=== PATIENT | female | born 1985 | race African-American/Black ===

== ENCOUNTER 2016-10-21 15:39 | Emergency (ER) | payer OTHER, MEDICAID ==
[2016-10-21] MEDS ORDERED: LORAZEPAM INJ 2 MG/1 ML VIAL IV ONE ×2 (16:06→22:15)
[2016-10-21] MEDS ORDERED: LORAZEPAM INJ 2 MG/1 ML VIAL IM ONE (16:07)
[2016-10-21 17:17] LABS: ANION GAP 11 (5-19); BLOOD UREA NITROGEN 12 mg/dL (7-20); CALCIUM 9.2 mg/dL (8.4-10.2); CARBON DIOXIDE 22 mmol/L (22-30); CHLORIDE 108 mmol/L (98-107); CREATININE RESULT 0.59 mg/dL (0.52-1.25); GLUCOSE 88 mg/dL (75-110); POTASSIUM 3.9 mmol/L (3.6-5.0); SODIUM 140.8 mmol/L (137-145)
[2016-10-21] MEDS ORDERED: IBUPROFEN 600 MG TABLET PO ONE (17:31)
[2016-10-21] MEDS ORDERED: KETOROLAC TROMETHAMINE INJ/PF 30 MG/1 ML SDV IV ONE (17:32)
[2016-10-21] MEDS ORDERED: DIPHENHYDRAMINE HCL 50 MG/ML VIAL IV ONE (18:11)
[2016-10-21] MEDS ORDERED: DEXAMETHASONE SOD PHOS INJ 10 MG/1 ML VIAL IV ONE (18:11)
--- NOTE | 2016-10-21 18:15 | RADIOLOGY REPORT (SQ) ---
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 Images reviewed wi th bone, brain and subdural windows. Images stored on PACS. LIMITATIONS: None. FINDINGS: VENTRICLES: Normal size and contour. CEREBRUM: No masses. No hemorrhage. No midline shift. Normal velez/white matter differentiation. N o evidence for acute infarction. CEREBELLUM: No masses. No hemorrhage. No alteration of density. No evidence for acute infarction. EXTRAAXIAL SPACES: No fluid collections. No masses. ORBITS AND GLOBE: No intra- or extraconal masses. Normal contour of globe without masses. CALVARIUM: No fracture. PARANASAL SINUSES: No fluid or mucosal thickening. SOFT TISSUES: No mass or hematoma. OTHER: Stable appearance surgical hardware. IMPRESSION: NO ACUTE INTRACRANIAL PROCESS. NO SIGNIFICANT CHANGE FROM PRIOR STUDY. COMMENT: WAS EXAM PERFORMED WITHIN 24 HOURS UPON ARRIVAL TO FACILITY? Yes. TECHNICAL DOCUMENTATION: JOB ID: [id number]
[2016-10-21] MEDS ORDERED: PROPOFOL INJ 200 MG/20 ML VIAL IV ONE ×2 (18:39→21:07)
[2016-10-21] MEDS ORDERED: HYDROMORPHONE HCL INJ/PF 2 MG/ML AMPULE IV ONE ×2 (18:39→21:06)
--- NOTE | 2016-10-21 18:40 | RADIOLOGY REPORT (SQ) ---
EXAM DESCRIPTION: SHOULDER RIGHT 2 OR MORE VIEWS COMPLETED DATE/TIME: 10/21/2016 6:27 pm REASON FOR STUDY: right shoulder deformity COMPARISON: 04/22/2016 NUMBER OF VIEWS: Two views. TECHNIQUE: AP AND Y-VIEW images acquired of the right shoulder. LIMITATIONS: None. FINDINGS: MINERALIZATION: Normal. BONES: Stable chronic posttraumatic change involving the humeral head and glenoid with internal fixat ion hardware in place. JOINTS: Anterior dislocation humeral head. VISUALIZED LUNGS AND RIBS: No pneumothorax. No rib fracture. SOFT TISSUES: No radiopaque foreign body. OTHER: No other significant finding. IMPRESSION: ANTERIOR SHOULDER DISLOCATION. NO ACUTE FRACTURE OR HARDWARE COMPLICATION IDENTIFIED. TECHNICAL DOCUMENTATION: JOB ID: [id number] [employer]- All Rights Reserved
[2016-10-21] MEDS ORDERED: MIDAZOLAM 2 MG/2 ML INJ ONE (20:13)
[2016-10-21] MEDS ORDERED: PROPOFOL 100 ML IV ONE (20:14)
[2016-10-21] MEDS ORDERED: FENTANYL CITRATE INJ/PF 100 MCG/2 ML AMPUL ONE (20:25)
--- NOTE | 2016-10-21 20:36 | ER Document Report ---
ED General - General Chief Complaint: Probable Seizure Stated Complaint: POSSIBLE SEIZURE Time Seen by Provider: 10/21/16 16:05 Notes: The patient is a 31-year-old female, past medical history IICH (pseudotumor cerebri) with stent placement at [facility] on 02/28/2014 (initially , she thought she had a [employer] shunt), seizures, recurrent right shoulder dislocation, presents with multiple seizures at work today and an increasing diffuse headache. Seizures last ~30 seconds, are described as eye fluttering and right arm movements, and she has a brief post-ictal period. She is also having increasing blurry vision. Patient also having nausea and vomiting. She has not established care with a neurosurgeon in [place] after moving here last year. She takes Diamox and Topamax daily. Her last Topamax dose was last week. While in the emergency room after a 30 second focal seizure, she began to have right shoulder pain and felt like it was dislocated. She denies fevers, neck stiffness, numbness, tingling, chest pain, shortness of breath, abdominal pain or back pain. TRAVEL OUTSIDE OF THE U.S. IN LAST 30 DAYS: No - Related Data Allergies/Adverse Reactions: rocuronium Allergy (Severe, Verified 10/21/16 20:09) Cardiac arrest clonidine [Clonidine] Allergy (Verified 04/19/11 02:13) etomidate [Etomidate] Allergy (Verified 04/19/11 02:13) metoclopramide HCl [From Reglan] Allergy (Verified 03/07/12 05:40) Past Medical History - General Information source: Patient - Social History Smoking Status: Former Smoker Chew tobacco use (# tins/day): No Frequency of alcohol use: None Drug Abuse: None Family History: Reviewed & Not Pertinent Patient has suicidal ideation: No Patient has homicidal ideation: No - Past Medical History Cardiac Medical History: Reports: Hx Hypertension Neurological Medical History: Reports: Hx Seizures Renal/ Medical History: Reports: Hx Kidney Stones. Denies: Hx Peritoneal Dialysis Past Surgical History: Reports: Hx Section, Hx Neurologic Surgery - intercranial shunt, Hx Orthopedic Surgery - Immunizations Hx Diphtheria, Pertussis, Tetanus Vaccination: Yes Review of Systems - Review of Systems Notes: REVIEW OF SYSTEMS: CONSTITUTIONAL: -fevers, -chills EENT: +blurry vision, -eye pain, -difficulty swallowing, -nasal congestion CARDIOVASCULAR: -chest pain, -syncope. RESPIRATORY: -cough, -SOB GASTROINTESTINAL: -abdominal pain, +nausea, +vomiting, -diarrhea GENITOURINARY: -dysuria, -hematuria MUSCULOSKELETAL: +right shoulder pain, -back pain, -neck pain SKIN: -rash or skin lesions. HEMATOLOGIC: -easy bruising or bleeding. LYMPHATIC: -swollen, enlarged glands. NEUROLOGICAL: -altered mental status or loss of consciousness, +headache, - neurologic symptoms, +seizures PSYCHIATRIC: -anxiety, -depression. ALL OTHER SYSTEMS REVIEWED AND NEGATIVE. Physical Exam - Vital signs Vitals: Temp Pulse Resp BP Pulse Ox 98.8 F 79 18 154/124 H 99 10/21/16 15:41 10/21/16 15:41 10/21/16 15:41 10/21/16 15:41 10/21/16 15:41 - Notes Notes: PHYSICAL EXAMINATION: GENERAL: Mild distress. HEAD: Atraumatic, normocephalic. EYES: Pupils equal round and reactive to light, extraocular movements intact, sclera anicteric, conjunctiva are normal. ENT: nares patent, oropharynx clear without exudates. Moist mucous membranes. NECK: Normal range of motion, supple without lymphadenopathy LUNGS: Breath sounds clear to auscultation bilaterally and equal. No wheezes rales or rhonchi. HEART: Regular rate and rhythm without murmurs ABDOMEN: Soft, nontender, normoactive bowel sounds. No guarding, no rebound. No masses appreciated. EXTREMITIES: Right shoulder deformity and decreased ROM. no pitting or edema. No cyanosis. NEUROLOGICAL: Cranial nerves grossly intact. Normal speech. Normal sensory and motor exams. Difficulty swallowing. PSYCH: Normal mood, normal affect. SKIN: Warm, Dry, normal turgor, no rashes or lesions noted. Course - Re-evaluation Re-evalutation: Pt with recurrent seizures and headache. Her seizures last ~30 seconds and then she is briefly post-ictal. Pt with anterior shoulder dislocation during a seizure in the ED. She was difficult to reduce, but eventually was successful after multiple attempts. With increasing headache, blurry vision, papilledema on ultrasound, recurrent seizures and history of IICH, there is a concern for increasing intracranial pressure. Prepared for LP, but patient says that she usually needs fluoroscopy due to her body habitus and refused at this time. Pt is in need of neurosurgery and no neurosurgeon is environmental scientist at this time at [facility]. Spoke to Dr. Westfall (Neurosurgeon at [facility]) and he said that pseudotumor cerebri patients needs a higher level of care. Spoke to Dr. Haider ( Neurosurgeon at [facility]) and he will see patient in ED and recommends a ED to ED transfer. Spoke to Dr. Simental ([facility] ED Attending) and she has accepted patient at 21:45. Given Diamox, Decadron and pain medicine. No recurrent seizures after Ativan. - Vital Signs Vital signs: Temp Pulse Resp BP Pulse Ox 98.8 F 85 21 H 131/95 H 98 10/21/16 15:44 10/21/16 21:13 10/21/16 22:21 10/21/16 22:21 10/21/16 22:21 - Laboratory Result Diagrams: 10/21/16 16:55 Laboratory results interpreted by me: 10/21/16 16:55 Chloride 108 H - Diagnostic Test Radiology reviewed: Image reviewed, Reports reviewed Radiology results interpreted by me: CT Head: NAD - EKG Interpretation by Me EKG shows normal: Sinus rhythm, [place], Intervals, QRS Complexes, ST-T Waves Procedures - Conscious Sedation Conscious sedation Time started: 19:58 Time completed: 20:40 Consent obtained: Yes Indication: Right shoulder dislocation Last meal: 0800 Prior complications: General anesthesia Pt with a mild systemic disease.: P2. - ASA Classification. Airway Evaluation: Normal anatomy Mallampati Classification: Class 1 Used during procedure: Suction available, IV access obtained, Pulse ox on pt., monitoring analyst on pt. Medications administered: Versed, Fentanyl, Diprivan Reversal agents: None I personally performed/intraservice time: Sedation, Procedure, 31-45 min Complications: No - Immobilization Right Shoulder Pre-Proc Neuro Vasc Exam: Normal Immobilizer type: Shoulder immobilizer Performed by: Provider Post-Proc Neuro Vasc Exam: Normal Alignment checked and good: Yes - Joint Reduction/Fracture Care Right Shoulder Consent obtained: Yes Conscious sedation: Yes Pre-procedure NV exam: Yes Fracture: Other - Dislocation Manipulation comment: Multiple attempts using traction-countertraction, abduction, fares techniqu Post-procedure NV exam: Yes Reduction attempts: 4 Complications: No Critical Care Note - Critical Care Note Total time excluding time spent on procedures (mins): 75 Discharge - Discharge Clinical Impression: Seizure, Blurry vision Headache Qualifiers: Headache type: unspecified Headache chronicity pattern: unspecified pattern Intractability: not intractable Qualified Code(s): R51 - Headache Anterior shoulder dislocation Qualifiers: Encounter type: initial encounter Laterality: right Qualified Code(s): S43.014A - Anterior dislocation of right humerus, initial encounter Condition: Stable Disposition: EULESS
--- NOTE | 2016-10-21 20:49 | RADIOLOGY REPORT (SQ) ---
EXAM DESCRIPTION: SHOULDER RIGHT 1 VIEW COMPLETED DATE/TIME: 10/21/2016 8:38 pm REASON FOR STUDY: post reduction COMPARISON: 10/21/2016 TECHNIQUE: AP view of the right shoulder LIMITATIONS: None. FINDINGS: There has been interval reduction of the previously described anterior dislocation. IMPRESSION: Interval reduction as noted above TECHNICAL DOCUMENTATION: JOB ID: [id number] [employer]- All Rights Reserved
[2016-10-21] MEDS ORDERED: ACETAZOLAMIDE 250 MG TABLET PO ONE (21:06)
[2016-10-21] MEDS ORDERED: MIDAZOLAM 2 MG/2 ML INJ IV ONE (21:07)
[2016-10-21] MEDS ORDERED: FENTANYL CITRATE INJ/PF 100 MCG/2 ML AMPUL IV ONE (21:07)
[2016-10-21 23:31] VITALS: BP 138/110
== END 2016-10-21 23:45 | disposition short-term general hospital (02) ==
LOC: ER 15:39
PROC: 0RSJXZZ Reposition Right Shoulder Joint, External Approach (ICD-10-PCS; principal; 2016-10-21)
DX: R56.9 Unspecified convulsions (principal); R51 Headache; H53.8 Other visual disturbances; S43.014A Anterior dislocation of right humerus, initial encounter; X58.XXXA Exposure to other specified factors, initial encounter; R11.2 Nausea with vomiting, unspecified; Z87.891 Personal history of nicotine dependence; Z87.442 Personal history of urinary calculi; Z98.2 Presence of cerebrospinal fluid drainage device
CPT/HCPCS: 96376; 99291; 99292; 96372; 99153; 99152; 96374; 96375; 36415; 82962; 80048; 80201; 73020; 73030; 70450; 23650; L3650; J2250; J1200; J1885; J1170; J2060; J2704; J1100

== ENCOUNTER 2016-11-06 16:41 | Emergency (ER) | payer OTHER, MEDICAID ==
--- NOTE | 2016-11-06 17:17 | ER Document Report ---
ED General - General Mode of Arrival: Ambulatory Information source: Patient TRAVEL OUTSIDE OF THE U.S. IN LAST 30 DAYS: No - HPI Patient complains to provider of: Headache Onset: This afternoon Associated symptoms: Other - see notes above <MORGAN BURGOS - Last Filed: 11/06/16 19:03> <LIU WAKEFIELD - Last Filed: 11/06/16 21:31> - General Chief Complaint: Seizure Stated Complaint: POSSIBLE SEIZURE Time Seen by Provider: 11/06/16 16:49 Notes: 31 year old female with history of a cerebral stent presents to the ED complaining of a headache that radiates to her eyes that started this afternoon. Patient reports that she was transferred to [place] last week secondary to fluid pressure buildup. Patient states that she had two lumbar punctures performed while at [place] and was told to contact her surgeon in [place] to fix the stent and to increase her Topomax and Diamox. Patient reports having a similar feeling today as she did last week, but reports that it is not as severe as last week. Patient states that she doesn't think that she needs to have a lumbar puncture today and is interested in going home. According to EMS, the patient's co-workers state that she had a seizure, but the patient does not recall. (MORGAN BURGOS) - Related Data Allergies/Adverse Reactions: rocuronium Allergy (Severe, Verified 11/06/16 17:11) Cardiac arrest clonidine [Clonidine] Allergy (Verified 11/06/16 17:11) etomidate [Etomidate] Allergy (Verified 11/06/16 17:11) metoclopramide HCl [From Reglan] Allergy (Verified 11/06/16 17:11) Past Medical History - General Information source: Patient - Social History Smoking Status: Unknown if Ever Smoked Family History: Reviewed & Not Pertinent - Past Medical History Cardiac Medical History: Reports: Hx Hypertension Neurological Medical History: Reports: Hx Seizures Renal/ Medical History: Reports: Hx Kidney Stones. Denies: Hx Peritoneal Dialysis Past Surgical History: Reports: Hx Section, Hx Neurologic Surgery - intercranial shunt, Hx Orthopedic Surgery - Immunizations Hx Diphtheria, Pertussis, Tetanus Vaccination: Yes <MORGAN BURGOS - Last Filed: 11/06/16 19:03> Review of Systems - Review of Systems Constitutional: No symptoms reported EENT: No symptoms reported Cardiovascular: No symptoms reported Respiratory: No symptoms reported Gastrointestinal: No symptoms reported Genitourinary: No symptoms reported Female Genitourinary: No symptoms reported Musculoskeletal: No symptoms reported Skin: No symptoms reported Hematologic/Lymphatic: No symptoms reported Neurological/Psychological: See HPI, Seizure - possible, Headaches - radiates to eyes -: Yes All other systems reviewed and negative <MORGAN BURGOS - Last Filed: 11/06/16 19:03> Physical Exam <MORGAN BURGOS - Last Filed: 11/06/16 19:03> - General General appearance: Alert In distress: None <LIU WAKEFIELD - Last Filed: 11/06/16 21:31> - Vital signs Vitals: Temp 98.8 F 11/06/16 16:53 - General Notes: Patient does not want any further physical examination. States that she feels better and would like to go home. (LIU WAKEFIELD) Course <MORGAN BURGOS - Last Filed: 11/06/16 19:03> <LIU WAKEFIELD - Last Filed: 11/06/16 21:31> - Re-evaluation Re-evalutation: 11/06/16 Patient has a history of shunt for history of pseudotumor cerebra. Patient was sent in from work. Patient states that she feels well at this time. She does not want blood work. She does not want to do a lumbar puncture. And she does not want to have any further evaluation at this time. She just wants to go home. She will follow-up with her doctor. Patient is pleasant but does not want to spend any more time in the hospital. (LIU WAKEFIELD) - Vital Signs Vital signs: Temp Pulse Resp BP Pulse Ox 98.8 F 13 133/104 H 99 11/06/16 16:53 11/06/16 17:01 11/06/16 17:01 11/06/16 17:01 Discharge <MORGAN BURGOS - Last Filed: 11/06/16 19:03> <LIU WAKEFIELD - Last Filed: 11/06/16 21:31> - Discharge Clinical Impression: Possible seizure Headache Qualifiers: Headache type: unspecified Headache chronicity pattern: unspecified pattern Intractability: not intractable Qualified Code(s): R51 - Headache Condition: Stable Disposition: HOME, SELF-CARE Instructions: Headache ([facility]) Additional Instructions: Please follow-up with your doctors as instructed regarding her symptoms. Please return if you have any worsening or concerning symptoms. Scribe Attestation: 11/06/16 21:31 I personally performed the services described in the documentation, reviewed and edited the documentation which was dictated to the scribe in my presence, and it accurately records my words and actions. (LIU WAKEFIELD) Scribe Documentation - Scribe Written by Samir:: Samir De Jesus, 11/06/2016 1913 acting as scribe for :: Carrie <MORGAN BURGOS - Last Filed: 11/06/16 19:03>
[2016-11-06 17:31] VITALS: BP 133/104
--- NOTE | 2016-11-06 21:37 | EKG REPORT ---
SEVERITY:- BORDERLINE ECG - SINUS RHYTHM BORDERLINE T WAVE ABNORMALITIES : Confirmed by: Samantha Boateng 06-Nov-2016 21:37:32
== END 2016-11-06 17:39 | disposition home or self-care (01) ==
LOC: ER 16:41
DX: G93.2 Benign intracranial hypertension (principal); R51 Headache; Z96.89 Presence of other specified functional implants; Z79.899 Other long term (current) drug therapy; Z88.8 Allergy status to other drugs, medicaments and biological substances; Z88.4 Allergy status to anesthetic agent
CPT/HCPCS: 93005; 93010; 99284

== ENCOUNTER 2016-11-07 14:08 | Emergency (ER) | payer OTHER, MEDICAID ==
--- NOTE | 2016-11-07 15:26 | ER Document Report ---
ED Medical Screen (RME) - General Mode of Arrival: Ambulatory Information source: Patient TRAVEL OUTSIDE OF THE U.S. IN LAST 30 DAYS: No - HPI Patient complains to provider of: Headache, blurry vision, and seizure Onset: Yesterday Associated Symptoms: Other - see notes above <MORGAN BURGOS - Last Filed: 11/07/16 15:47> <FLORECITA DUONG - Last Filed: 11/07/16 20:49> - General Chief Complaint: Headache Stated Complaint: HEADACHE Notes: 31 year old female with history of a GREEN BELT shunt presents to the ED complaining of a headache, blurry vision, and seizure that started yesterday. Patient reports that she was seen in the ED for similar complaints last week and was sent to [place] where she received two lumbar punctures to relieve fluid pressure. She explains that [place] looked at her shunt, but will not perform surgery to fix it and has advised her to contact the surgeon at [facility] to perform the procedure. Patient states that the shunt has not been checked for 2-3 years because she does not have insurance. Patient reports to having a seizure last night and states that she hasn't had seizures since getting her shunt placed. Patient is additionally complaining of worsening vision stating that she is seeing spots, vomiting, and nausea. Patient was seen in the ED yesterday complaining of a headache and seizure, but did not want to be evaluated. (MORGAN BURGOS) - Related Data Allergies/Adverse Reactions: rocuronium Allergy (Severe, Verified 11/07/16 15:50) Cardiac arrest clonidine [Clonidine] Allergy (Verified 11/07/16 15:50) etomidate [Etomidate] Allergy (Verified 11/07/16 15:50) metoclopramide HCl [From Reglan] Allergy (Verified 11/07/16 15:50) Past Medical History - General Information source: Patient - Past Medical History Cardiac Medical History: Reports: Hx Hypertension Neurological Medical History: Reports: Hx Seizures Renal/ Medical History: Reports: Hx Kidney Stones. Denies: Hx Peritoneal Dialysis Past Surgical History: Reports: Hx Section, Hx Neurologic Surgery - intercranial shunt (GREEN BELT shunt), Hx Orthopedic Surgery - Immunizations Hx Diphtheria, Pertussis, Tetanus Vaccination: Yes <MORGAN BURGOS - Last Filed: 11/07/16 15:47> Review of Systems - Review of Systems Constitutional: No symptoms reported EENT: See HPI, Blurred vision Cardiovascular: No symptoms reported Respiratory: No symptoms reported Gastrointestinal: No symptoms reported Genitourinary: No symptoms reported Female Genitourinary: No symptoms reported Musculoskeletal: No symptoms reported Skin: No symptoms reported Hematologic/Lymphatic: No symptoms reported Neurological/Psychological: See HPI, Seizure, Headaches -: Yes All other systems reviewed and negative <MORGAN BURGOS - Last Filed: 11/07/16 15:47> Physical Exam - General General appearance: Alert - HEENT Head: Normocephalic, Atraumatic, Other - Tenderness to palpation reported over the course of the GREEN BELT shunt particularly over the left side. Eyes: Normal Extraocular movements intact: Yes Pupils: PERRL - Respiratory Respiratory status: No respiratory distress <MORGAN BURGOS - Last Filed: 11/07/16 15:47> Course - Laboratory Result Diagrams: 11/07/16 20:30 11/07/16 20:30 <FLORECITA DUONG - Last Filed: 11/07/16 20:49> - Vital Signs Vital signs: Temp Pulse Resp BP Pulse Ox 98.8 F 88 17 140/92 H 100 11/07/16 14:19 11/07/16 14:19 11/07/16 18:01 11/07/16 17:39 11/07/16 18:01 - Laboratory Laboratory results interpreted by me: 11/07/16 20:30 RDW 14.8 H Doctor's Discharge <MORGAN BURGOS - Last Filed: 11/07/16 15:47> <FLORECITA DUONG - Last Filed: 11/07/16 20:49> - Discharge Clinical Impression: headache, h/o pseudotumor cerebri Condition: Stable Disposition: HOME, SELF-CARE Additional Instructions: We discussed, it is vital that she follow-up with a neurosurgeon. It is recommended that she go back to [facility] days (this weekend if possible). For any reason you are unable to go back to [place], he will need a neurosurgeon and I recommend you go back to [place] in that case. When you do follow-up with a neurosurgeon, bring the copy of today's CT scan, CT scan report and spinal fluid analysis with you when you go to the appointment. The spinal tap you received tonight is temporizing. We were able to bring the pressure from 34-16. Without a functioning stent, the fluid will most likely begin to increase again. So definitive treatment will require a neurosurgeon. Unfortunately, we do not have a neurosurgeon at this hospital. Prescriptions: Hydromorphone HCl [Dilaudid 2 Mg Tablet] 2 mg PO Q6H PRN #20 tablet PRN Reason: for pain Promethazine HCl [Phenergan 25 mg Tablet] 25 mg PO Q6H PRN #15 tablet PRN Reason: Scribe Documentation - Scribe Written by Samir:: Samir De Jesus, 11/07/2016, 1610 acting as scribe for :: Joie <MORGAN BURGOS - Last Filed: 11/07/16 15:47>
--- NOTE | 2016-11-07 16:07 | RADIOLOGY REPORT (SQ) ---
EXAM DESCRIPTION: CT HEAD WITHOUT COMPLETED DATE/TIME: 11/07/2016 3:52 pm REASON FOR STUDY: headache, vision change, blocked shunt COMPARISON: [address] brain exams since 09/25/2007, most recently 10/21/2016 and 04/12/2016 TECHNIQUE: Axial images acquired through the brain without intravenous contrast. Images reviewed wi th bone, brain and subdural windows. Images stored on PACS. All CT scanners at this facility use dose modulation, iterative reconstruction, and/or weight based d osing when appropriate to reduce radiation dose to as low as reasonably achievable (ALARA). [facility]: Dose Right [facility]: CareDose [facility]: Dose Right [facility]: Teradose 4D [facility]: Vator RADIATION DOSE: Up-to-date CT equipment and radiation dose reduction techniques were employed. CTDIv ol: 64.6 mGy. DLP: 1034 mGy-cm. mGy. LIMITATIONS: None. FINDINGS: VENTRICLES: Normal size and contour. CEREBRUM: No masses. No hemorrhage. No midline shift. Normal velez/white matter differentiation. N o evidence for acute infarction. CEREBELLUM: No masses. No hemorrhage. No alteration of density. No evidence for acute infarction. EXTRAAXIAL SPACES: No fluid collections. No masses. ORBITS AND GLOBE: No intra- or extraconal masses. Normal contour of globe without masses. CALVARIUM: No fracture. PARANASAL SINUSES: No fluid or mucosal thickening. SOFT TISSUES: No mass or hematoma. OTHER: On axial images 8 through 12, or radiopaque stent is present along the right distal transverse and sigmoid sinus. This is also seen on prior CT exams 12/14/2014 and 10/21/2016. No intraventricular drainage catheter is identified. Findings discussed with Dr. Montenegro in the emergency room. IMPRESSION: No acute findings TECHNICAL DOCUMENTATION: JOB ID: [id number] Quality ID # [id number]: Final reports with documentation of one or more dose reduction techniques (e.g., Au tomated exposure control, adjustment of the mA and/or kV according to patient size, use of iterative reconstruction technique) 2010 [employer]- All Rights Reserved
--- NOTE | 2016-11-07 17:22 | RADIOLOGY REPORT (SQ) ---
EXAM DESCRIPTION: LUMBAR PUNCTURE COMPLETED DATE/TIME: 11/07/2016 4:43 pm REASON FOR STUDY: large volume tap ([facility]):note opening/closing pressu COMPARISON: CT BRAIN 11/07/2016 FLUOROSCOPY TIME: 13 seconds 1 digital radiographic image saved to PACS. TECHNIQUE: Fluoroscopic guided lumbar puncture. LIMITATIONS: None. PROCEDURE: After written consent and assessment were obtained, the patient was brought into the fluo roscopy room and placed prone on the table. The patient's lower back was prepped in a sterile fashio n and an entry site was selected under live fluoroscopic guidance. The entry site was anesthetized wi th 3 mL of 1% lidocaine. A 20 gauge needle was advanced through the skin and into the thecal sac at t he left paracentral L2-3 level. Opening pressure was 34 cm of water. After approximately 25 ml was drained, closing pressure was 16 cm of water. The needle was removed and a sterile bandage was place d of the site. Specimens were sent to the lab for testing. A fluoroscopic spot image was saved to [facility] confirming level access. FINDINGS: Clear CSF opening pressure 34 cm of water, closing pressure 16 cm of water IMPRESSION: Lumbar puncture under fluoroscopy. No immediate complication. COMMENT: Patient medication list reviewed: Yes- Quality ID# [id number]:Eligible professional attests to doc umenting in the medical record they obtained, updated, or reviewed the patient's current medications. . Quality ID 145: Final reports for procedures using fluoroscopy that document radiation exposure lexie brayden, or exposure time and number of fluorographic images (if radiation exposure indices are not avail able) TECHNICAL DOCUMENTATION: JOB ID: [id number] [employer]- All Rights Reserved
[2016-11-07] MEDS ORDERED: PROMETHAZINE HCL 25 MG TABLET PO ONE (17:25)
[2016-11-07] MEDS ORDERED: HYDROMORPHONE HCL INJ/PF 2 MG/ML AMPULE IM ONE ×2 (17:25→19:00)
[2016-11-07 17:31] LABS: GLUCOSE,CSF 48 mg/dL (40-70)
[2016-11-07 17:52] LABS: APPEARANCE ALL TUBES CLEAR; APPEARANCE TUBE 1 CLEAR; APPEARANCE TUBE 2 CLEAR; APPEARANCE TUBE 3 CLEAR
[2016-11-07 17:53] LABS: RBC AVERAGE 0.5; RBC DILUENT USED NONE USED; RBC DILUTION FACTOR 1; RBC SIDE 1 1; RBC SIDE 2 0; TOTAL RBC SQUARES COUNTED 225
[2016-11-07 17:54] LABS: WHITE BLOOD CELL,CSF 1 /uL (0-5)
[2016-11-07 17:56] LABS: APPEARANCE ALL TUBES CLEAR; APPEARANCE TUBE 1 CLEAR; APPEARANCE TUBE 2 CLEAR; APPEARANCE TUBE 3 CLEAR; RBC SIDE 1 0; RBC SIDE 2 0
[2016-11-07 17:57] LABS: RBC DILUENT USED NONE USED; RBC DILUTION FACTOR 1; TOTAL RBC SQUARES COUNTED 225; WHITE BLOOD CELL,CSF 0 /uL (0-5)
--- NOTE | 2016-11-07 19:01 | ER Document Report ---
ED General - General Chief Complaint: Headache Stated Complaint: HEADACHE Time Seen by Provider: 11/07/16 15:17 Mode of Arrival: Ambulatory Information source: Patient Notes: 31-year-old female with a history of pseudotumor cerebri which has been treated in the past (2013 at [facility]) with a sigmoid sinus stent. Patient started experiencing headaches in the beginning of this month. She was evaluated at this hospital and transferred to [facility] with spinal taps were done to decrease intracranial pressure. She was referred back to [facility] for management of the stent. Patient presents tonight back to this hospital with a headache. Denies any fever or recent illnesses. She denies any visual changes TRAVEL OUTSIDE OF THE [place] IN LAST 30 DAYS: No - HPI Onset: Last week Onset/Duration: Gradual Quality of pain: Dull Severity: Moderate Pain Level: 4 Associated symptoms: Nausea. denies: Chest pain, Fever, Shortness of breath Exacerbated by: Movement Relieved by: Denies Similar symptoms previously: Yes Recently seen / treated by doctor: Yes - Related Data Allergies/Adverse Reactions: rocuronium Allergy (Severe, Verified 11/07/16 15:50) Cardiac arrest clonidine [Clonidine] Allergy (Verified 11/07/16 15:50) etomidate [Etomidate] Allergy (Verified 11/07/16 15:50) metoclopramide HCl [From Reglan] Allergy (Verified 11/07/16 15:50) Past Medical History - General Information source: Patient - Social History Smoking Status: Current Some Day Smoker Cigarette use (# per day): Yes Chew tobacco use (# tins/day): No - Pack per day Frequency of alcohol use: Rare Drug Abuse: None Lives with: Family Family History: Reviewed & Not Pertinent Patient has suicidal ideation: No Patient has homicidal ideation: No - Past Medical History Cardiac Medical History: Reports: Hx Hypertension Neurological Medical History: Reports: Hx Seizures Renal/ Medical History: Reports: Hx Kidney Stones. Denies: Hx Peritoneal Dialysis Past Surgical History: Reports: Hx Section, Hx Neurologic Surgery - intercranial shunt (TROUBLE LOCATER shunt), Hx Orthopedic Surgery - Immunizations Hx Diphtheria, Pertussis, Tetanus Vaccination: Yes Review of Systems - Review of Systems Constitutional: denies: Chills, Fever EENT: No symptoms reported Cardiovascular: No symptoms reported Respiratory: No symptoms reported Genitourinary: No symptoms reported Female Genitourinary: No symptoms reported Musculoskeletal: No symptoms reported Skin: No symptoms reported Hematologic/Lymphatic: No symptoms reported Neurological/Psychological: See HPI Physical Exam - Vital signs Vitals: Temp Pulse Resp BP Pulse Ox 98.8 F 88 15 145/92 H 100 11/07/16 14:19 11/07/16 14:19 11/07/16 14:19 11/07/16 14:19 11/07/16 14:19 Notes: Physical exam: GENERAL: A 31-year-old female, alert and oriented 3 complaining of headache HEAD: Atraumatic, normocephalic. EYES: Pupils equal round and reactive to light, extraocular movements intact, sclera anicteric, conjunctiva are normal. ENT: TMs normal, nares patent, oropharynx clear without exudates. Moist mucous membranes. NECK: Normal range of motion, supple without lymphadenopathy or JVD. LUNGS: Breath sounds clear to auscultation bilaterally and equal. No wheezes rales or rhonchi. HEART: Regular rate and rhythm without murmurs, rubs or gallops. ABDOMEN: Soft, normoactive bowel sounds. No tenderness to palpation. No guarding, no rebound. No masses appreciated. EXTREMITIES: Normal range of motion, no pitting or edema. No clubbing or cyanosis. NEUROLOGICAL: Cranial nerves II through XII grossly intact. Does have neck supple. She does have mild photophobia. no meningismus. normal speech. PSYCH: Normal mood, normal affect. SKIN: Warm, Dry, normal turgor, no rashes or lesions noted. Course - Re-evaluation Re-evalutation: 11/07/16 19:09 patient does appear better. She has been on the smart phone several times and has eaten while in the room. I have discussed the results of the CT as well as the spinaltap. The spinal tap was performed under fluoroscopy by Dr Nieto pressure was lowered from 34 to a closing pressure of 16. Ultimately, the patient will have to follow-up with a neurosurgeon and she is been referred by [facility] back to her neurosurgeon at [facility]. I discussed the limitations of this hospital (we do not have neurology, we do not have neurosurgery) and definitive treatment will require input from a neurosurgeon. I have strongly advised her to return to [facility] to see her neurosurgeon. She has agreed with this plan. I have advised her, if for any reason she is unable to get back to [facility], she will need a neurosurgeon and I recommended she go back to [facility]. As far as right now, CT shows no significant change, and the intracranial pressure has been lowered and the spinal fluid looks clear and without any bleeding or infection. 11/07/16 23:12 Note: It was noted to be hypertensive and she still a bad headache immediately after the tap. We ended up observing her on a heart monitor and her blood pressure came down by itself. She received some more pain medicine. I have had a long conversation with her. She does look so much better. She does states she feels a lot better. I think the fluid removed was a fair amount of fluid and it took a little while for her to start to feel better. I have given her the option of calling [facility] for possible transfer for repeat spinal taps and further removal of the fluid, but she would like to go home. We do not have neurosurgery here so if she is to be admitted, she required transfer. Positive blood pressure, currently is 140/100 and I have discussed the options with her (start her on any antihypertensive medicine will have her follow-up with the medicine clinic for repeat blood pressure in the next few days). We have decided to treat her with some pain medicine and have her follow-up with a repeat blood pressure in 1 of the local clinics. - Vital Signs Vital signs: Temp Pulse Resp BP Pulse Ox 97.8 F 90 22 H 135/103 H 96 11/07/16 23:01 11/07/16 20:13 11/07/16 23:48 11/07/16 23:48 11/07/16 23:48 - Laboratory Result Diagrams: 11/07/16 20:30 11/07/16 21:30 Laboratory results interpreted by me: 11/07/16 11/07/16 11/07/16 20:30 21:30 21:30 RDW 14.8 H ESR 45 H Potassium 3.3 L Chloride 108 H Carbon Dioxide 21 L - Diagnostic Test Radiology reviewed: Image reviewed, Reports reviewed - The head shows no change Critical Care Note - Critical Care Note Total time excluding time spent on procedures (mins): 60 Discharge - Discharge Clinical Impression: headache, h/o pseudotumor cerebri Condition: Stable Disposition: HOME, SELF-CARE Additional Instructions: We discussed, it is vital that she follow-up with a neurosurgeon. It is recommended that she go back to [facility] (this weekend if possible). For any reason you are unable to go back to [place], he will need a neurosurgeon and I recommend you go back to [facility] in that case. When you do follow-up with a neurosurgeon, bring the copy of today's CT scan, CT scan report and spinal fluid analysis with you when you go to the appointment. The spinal tap you received tonight is temporizing. We were able to bring the pressure from 34-16. Without a functioning stent, the fluid will most likely begin to increase again. So definitive treatment will require a neurosurgeon. Unfortunately, we do not have a neurosurgeon at this hospital. Prescriptions: Hydromorphone HCl [Dilaudid 2 Mg Tablet] 2 mg PO Q6H PRN #20 tablet PRN Reason: for pain Promethazine HCl [Phenergan 25 mg Tablet] 25 mg PO Q6H PRN #15 tablet PRN Reason: Forms: Return to Work Referrals: SUPA COYNE MD [ACTIVE STAFF] - Follow up as needed (This is the number for a good Local primary care doctor affiliated with the hospital and could manage your blood pressure.)
[2016-11-07] MEDS ORDERED: NORMAL SALINE 500 ML IV PRN (20:25)
[2016-11-07 20:45] LABS: ABSOLUTE BASOPHILS # (AUTO) 0.1 10^3/uL (0.0-0.2); ABSOLUTE EOSINOPHILS # (AUTO) 0.1 10^3/uL (0.0-0.6); ABSOLUTE LYMPHOCYTES (AUTO) 2.9 10^3/uL (0.5-4.7); ABSOLUTE MONOCYTES (AUTO) 0.4 10^3/uL (0.1-1.4); ABSOLUTE NEUT (AUTO) 3.8 10^3/uL (1.7-8.2); EOSINOPHILS % (AUTO) 1.8 % (0-6); HEMATOCRIT 39.1 % (36.0-47.0); HEMOGLOBIN 12.6 g/dL (12.0-15.5); HGB HCT DIFFERENCE -1.3; LYMPHOCYTES % (AUTO) 39.7 % (13-45); MEAN CORPUSCULAR HEMOGLOBIN 28.7 pg (27.0-33.4); MEAN CORPUSCULAR HGB CONC 32.2 g/dL (32.0-36.0); MEAN CORPUSCULAR VOLUME 89 fl (80-97); MONOCYTES % (AUTO) 5.4 % (3-13); RED CELL DISTRIBUTION WIDTH 14.8 % (11.5-14.0); SEGMENTED NEUTROPHILS % (AUTO) 52.1 % (42-78); WHITE BLOOD COUNT 7.3 10^3/uL (4.0-10.5)
--- NOTE | 2016-11-07 20:46 | EKG REPORT ---
SEVERITY:- BORDERLINE ECG - SINUS RHYTHM BORDERLINE T WAVE ABNORMALITIES : Confirmed by: Samantha Boateng 07-Nov-2016 20:46:17
[2016-11-07] MEDS ORDERED: HYDROMORPHONE HCL INJ/PF 2 MG/ML AMPULE IV ONE ×2 (20:57→23:10)
[2016-11-07 22:05] LABS: ALANINE AMINOTRANSFERASE 26 U/L (9-52); ALBUMIN 3.9 g/dL (3.5-5.0); ALKALINE PHOSPHATASE 81 U/L (38-126); ANION GAP 12 (5-19); ASPARTATE AMINO TRANSFERASE 16 U/L (14-36); BILIRUBIN,DIRECT 0.3 mg/dL (0.0-0.4); BILIRUBIN,TOTAL 0.4 mg/dL (0.2-1.3); BLOOD UREA NITROGEN 12 mg/dL (7-20); C-REACTIVE PROTEIN 7.8 mg/L (<10.0); CALCIUM 8.9 mg/dL (8.4-10.2); CARBON DIOXIDE 21 mmol/L (22-30); CHLORIDE 108 mmol/L (98-107); CREATINE KINASE 129 U/L (30-135); GLUCOSE 83 mg/dL (75-110); POTASSIUM 3.3 mmol/L (3.6-5.0); SODIUM 141.4 mmol/L (137-145); TOTAL PROTEIN 7.2 g/dL (6.3-8.2)
[2016-11-07 22:14] LABS: CREATINE KINASE MB 0.24 ng/mL (<4.55)
[2016-11-07 22:19] LABS: TROPONIN I < 0.012 ng/mL
[2016-11-07 23:51] VITALS: BP 135/103
== END 2016-11-07 23:56 | disposition home or self-care (01) ==
LOC: ER 14:08
DX: G93.2 Benign intracranial hypertension (principal); Z98.2 Presence of cerebrospinal fluid drainage device; R51 Headache; R11.0 Nausea; H53.149 Visual discomfort, unspecified; F17.210 Nicotine dependence, cigarettes, uncomplicated; Z88.8 Allergy status to other drugs, medicaments and biological substances; Z88.7 Allergy status to serum and vaccine
CPT/HCPCS: 93005; 96376; 99285; 96372; 96374; 36415; 87070; 87205; 82553; 82550; 85025; 85652; 89050; 82945; 84157; 86140; 80053; 84484; 62270; 70450; 93010; J1170

== ENCOUNTER 2016-11-23 01:34 | Day surgery (SDC) | payer OTHER, MEDICAID ==
[2016-11-23] MEDS ORDERED: NORMAL SALINE 1000 ML 1,000 ML IV ONE (02:00)
[2016-11-23] MEDS ORDERED: PROPOFOL INJ 200 MG/20 ML VIAL IV ONE ×2 (02:24→14:00)
--- NOTE | 2016-11-23 02:25 | RADIOLOGY REPORT (SQ) ---
EXAM DESCRIPTION: SHOULDER RIGHT 2 OR MORE VIEWS COMPLETED DATE/TIME: 11/23/2016 1:53 am REASON FOR STUDY: injury COMPARISON: Right shoulder x-ray 10/21/2016, 04/12/2016. NUMBER OF VIEWS: Three views. TECHNIQUE: Internal rotation, external rotation, and Y view images acquired of the right shoulder. LIMITATIONS: None. FINDINGS: MINERALIZATION: Normal. BONES: No acute fracture is identified. Orthopedic hardware at the glenoid. JOINTS: There is anterior glenohumeral dislocation. VISUALIZED LUNGS AND RIBS: No pneumothorax. No displaced rib fracture. SOFT TISSUES: No radiopaque foreign body. IMPRESSION: Anterior glenohumeral dislocation. TECHNICAL DOCUMENTATION: JOB ID: [id number] 2010 [employer]- All Rights Reserved
[2016-11-23] MEDS ORDERED: PROPOFOL 0 ML IV ONE (02:28)
[2016-11-23] MEDS ORDERED: PROPOFOL 100 ML IV ONE (03:06)
[2016-11-23] MEDS ORDERED: DIAZEPAM INJ 10 MG/2 ML DISP.SYRIN ONE (03:12)
[2016-11-23] MEDS ORDERED: DIAZEPAM INJ 10 MG/2 ML DISP.SYRIN IV ONE (03:14)
[2016-11-23] MEDS ORDERED: FENTANYL CITRATE INJ/PF 100 MCG/2 ML AMPUL ONE ×2 (03:15→14:00)
[2016-11-23] MEDS ORDERED: FENTANYL CITRATE INJ/PF 100 MCG/2 ML AMPUL IV ONE (03:30)
--- NOTE | 2016-11-23 03:32 | ER Document Report ---
ED General - General Chief Complaint: Shoulder Injury Stated Complaint: SHOULDER PAIN Time Seen by Provider: 11/23/16 01:57 Notes: Patient is a 31-year-old female presents with complaint of right shoulder pain. She fell while running upstairs. She felt her right shoulder. She has a history of recurrent shoulder dislocations. She had surgery on her shoulder 3 years ago. She dislocated again in October of this year and then today is the second time she is dislocated since the surgery. Tingling sensation into her hand. No weakness into the hand. TRAVEL OUTSIDE OF THE [place] IN LAST 30 DAYS: No - Related Data Allergies/Adverse Reactions: rocuronium Allergy (Severe, Verified 11/07/16 15:50) Cardiac arrest clonidine [Clonidine] Allergy (Verified 11/07/16 15:50) etomidate [Etomidate] Allergy (Verified 11/07/16 15:50) metoclopramide HCl [From Reglan] Allergy (Verified 11/07/16 15:50) Past Medical History - Social History Smoking Status: Never Smoker Frequency of alcohol use: None Drug Abuse: None Family History: Reviewed & Not Pertinent Patient has suicidal ideation: No Patient has homicidal ideation: No - Past Medical History Cardiac Medical History: Reports: Hx Hypertension Neurological Medical History: Reports: Hx Seizures Renal/ Medical History: Reports: Hx Kidney Stones. Denies: Hx Peritoneal Dialysis Past Surgical History: Reports: Hx Section, Hx Neurologic Surgery - intercranial shunt, Hx Orthopedic Surgery - right shoulder - Immunizations Hx Diphtheria, Pertussis, Tetanus Vaccination: Yes Review of Systems - Review of Systems Notes: My Normal Review Basic REVIEW OF SYSTEMS: CONSTITUTIONAL : Denies fever, chills, or sweats. Denies recent illness. CARDIOVASCULAR: Denies chest pain. RESPIRATORY: Denies cough, cold, or chest congestion. Denies shortness of breath, difficulty breathing, or wheezing. GASTROINTESTINAL: Denies abdominal pain. Denies nausea, vomiting, or diarrhea. MUSCULOSKELETAL: right Shoulder pain. SKIN: Denies rash or skin lesions. NEUROLOGICAL: Denies altered mental status or loss of consciousness. Denies headache. Denies weakness or paralysis or loss of use of either side. Denies problems with gait or speech. Some tingling sensation in the right hand. ALL OTHER SYSTEMS REVIEWED AND NEGATIVE. Physical Exam - Vital signs Vitals: Temp Pulse Resp BP Pulse Ox 97.4 F 101 H 18 146/118 H 96 11/23/16 01:38 11/23/16 01:38 11/23/16 01:38 11/23/16 01:38 11/23/16 01:38 - Notes Notes: General Appearance: Well nourished, alert, cooperative, no acute distress, moderate obvious discomfort. Vitals: reviewed, See vital signs table. Eyes: PERRL, EOMI, Conjuctiva clear Mouth: No decreasd moisture Throat: No tonsillar inflammation, No airway obstruction, No lymphadenopathy Neck: Supple, no neck tenderness, Lungs: No wheezing, No rales, No rhonci, No accessory muscle use, good air exchange bilaterally. Heart: Normal rate, Regular rythm, No murmur, no rub Extremities: strength 5/5 in all extremities, good pulses in all extremities, the right shoulder consistent with dislocation. Patient is good radial and ulnar pulses. Good cap refill. She can feel me touch all fingers of her hand but says it is "tingly". She has good flexion-extension of all fingers and her hand., no edema. Skin: warm, dry, appropriate color, no rash Neuro: speech clear, oriented x 3, normal affect, responds appropriately to questions. Course - Re-evaluation Re-evalutation: 11/23/16 03:30 I have patient twice. Both times a for multiple attempts at reducing the shoulder joint. Since the patient sedated she does have good range of motion however appears that the joint is still dislocated. I did confirm this with a post reduction x-ray and the patient's joint remains dislocated. I spoke with orthopedist, Dr. Workman, who agrees to admit the patient and will consider taking her to the operating room for further reduction. 11/23/16 05:37 Patient is a hard peripheral IV stick. I therefore placed a peripheral IV in the left antecubital area under ultrasound guidance. This was working very well and worked for the patient's sedation. Later on IV became kinked and was not usable. I therefore placed a second peripheral IV under IV guidance. This is able to be flushed well without difficulty. Patient is admitted. - Vital Signs Vital signs: Temp Pulse Resp BP Pulse Ox 98 F 79 21 H 150/106 H 98 11/23/16 03:22 11/23/16 03:05 11/23/16 05:00 11/23/16 03:39 11/23/16 05:00 Procedures - Conscious Sedation Conscious sedation Consent obtained: Yes Prior complications: Procedural sedation Pt with a mild systemic disease.: P2. - ASA Classification. Airway Evaluation: Normal anatomy, Obese Mallampati Classification: Class 2 Used during procedure: Suction available, IV access obtained, Pulse ox on pt., chief innovation officer on pt. Medications administered: Diprivan I personally performed/intraservice time: 31-45 min Complications: No Notes: Patient was given a total of 130 mg of diprivan onintial sedation. Patient awoke with continued pain and felt as if her shoulder was still dislocated. Patient resedated with 100mg of Diprivan. Patient did not have any hypotension or Hypoxemia. - Joint Reduction/Fracture Care Right Shoulder Consent obtained: Yes Conscious sedation: Yes Pre-procedure NV exam: Yes Fracture: Other - dislocation Post-procedure NV exam: Yes Post-reduction x-ray: Joint not reduced Reduction attempts: 3 Complications: No - Additional Procedures IV insertion Additional Procedures: IV insertion Notes: 11/23/16 05:40 Peripheral IV inserted in left antecubital region under ultrasound guidance. Dark blood return with easy flushing with saline. Discharge - Discharge Clinical Impression: Shoulder dislocation Qualifiers: Encounter type: initial encounter Laterality: right Qualified Code(s): S43.004A - Unspecified dislocation of right shoulder joint, initial encounter Disposition: ADMITTED OBSERVATION Admitting Provider: Dr. Workman Unit Admitted: Surgical Floor
--- NOTE | 2016-11-23 03:53 | RADIOLOGY REPORT (SQ) ---
EXAM DESCRIPTION: SHOULDER RIGHT 2 OR MORE VIEWS COMPLETED DATE/TIME: 11/23/2016 3:26 am REASON FOR STUDY: post reduction COMPARISON: Right shoulder x-ray earlier same date. NUMBER OF VIEWS: Two views. TECHNIQUE: Frontal and Y view images acquired of the right shoulder. LIMITATIONS: None. FINDINGS: No significant interval change status post closed reduction. There is persistent anterior dislocation at the glenohumeral joint. IMPRESSION: No significant interval change in the anterior glenohumeral dislocation. TECHNICAL DOCUMENTATION: JOB ID: [id number] OH-64 2010 [employer]- All Rights Reserved
[2016-11-23] MEDS ORDERED: HYDROMORPHONE HCL INJ/PF 2 MG/ML AMPULE IV ONE (05:44)
[2016-11-23 06:09] LABS: ABSOLUTE EOSINOPHILS # (AUTO) 0.1 10^3/uL (0.0-0.6); ABSOLUTE MONOCYTES (AUTO) 0.4 10^3/uL (0.1-1.4); ABSOLUTE NEUT (AUTO) 3.3 10^3/uL (1.7-8.2); BASOPHILS % (AUTO) 0.7 % (0-2); EOSINOPHILS % (AUTO) 2.1 % (0-6); HEMATOCRIT 36.5 % (36.0-47.0); HEMOGLOBIN 11.8 g/dL (12.0-15.5); HGB HCT DIFFERENCE -1.1; LYMPHOCYTES % (AUTO) 43.5 % (13-45); MEAN CORPUSCULAR HEMOGLOBIN 28.7 pg (27.0-33.4); MEAN CORPUSCULAR HGB CONC 32.2 g/dL (32.0-36.0); MEAN CORPUSCULAR VOLUME 89 fl (80-97); MONOCYTES % (AUTO) 5.8 % (3-13); SEGMENTED NEUTROPHILS % (AUTO) 47.9 % (42-78); WHITE BLOOD COUNT 6.9 10^3/uL (4.0-10.5)
[2016-11-23 06:11] LABS: ANION GAP 11 (5-19); BLOOD UREA NITROGEN 13 mg/dL (7-20); CALCIUM 8.9 mg/dL (8.4-10.2); CARBON DIOXIDE 21 mmol/L (22-30); CHLORIDE 110 mmol/L (98-107); CREATININE RESULT 0.59 mg/dL (0.52-1.25); GLUCOSE 88 mg/dL (75-110); POTASSIUM 3.6 mmol/L (3.6-5.0); SODIUM 141.5 mmol/L (137-145)
[2016-11-23 06:20] LABS: PROTHROMBIN TIME 12.7 SEC (11.4-15.4)
[2016-11-23 06:21] LABS: PARTIAL THROMBOPLASTIN TIME 28.4 SEC (23.5-35.8)
[2016-11-23] MEDS ORDERED: ONDANSETRON HCL INJ/PF 4 MG/2 ML SDV ONE (08:07)
[2016-11-23] MEDS ORDERED: DEXAMETHASONE SOD PHOSPHATE INJ 4 MG/1 ML VIAL ONE (08:07)
[2016-11-23] MEDS ORDERED: LIDOCAINE 2% INJ-PF (20 MG/ML) 10 ML AMPUL ONE (08:07)
[2016-11-23] MEDS: MORPHINE SULFATE 10 MG/ML INJ IV PRN ×5 (08:56→21:51)
--- NOTE | 2016-11-23 09:57 | EKG REPORT ---
SEVERITY:- BORDERLINE ECG - SINUS RHYTHM BORDERLINE T ABNORMALITIES, INFERIOR LEADS : Confirmed by: Mehdi Catalan MD 23-Nov-2016 09:57:03
--- NOTE | 2016-11-23 13:05 | PDOC H&P ---
History of Present Illness Admission Date/PCP: 11/23/16 03:36 History of Present Illness: JAYDA RAMEY is a 31 year old female who presented to the emergency room with a right shoulder dislocation. Attempts at conscious sedation and reduction of the shoulder were unsuccessful. The patient is admitted to orthopedic service for management of the right shoulder dislocation. The patient's past medical history is notable for multiple right shoulder dislocations. She underwent a right shoulder Bankart repair by an unknown doctor in [facility] at an unknown point in the past. Her radiographic jacket suggest that she has had multiple right shoulder dislocations in the past year all of which have been reduced in the emergency room. Past Medical History Cardiac Medical History: Reports: Hypertension Neurological Medical History: Reports: Seizures Past Surgical History Past Surgical History: Reports: Section, Orthopedic Surgery - Patient is status post a right Bankart repair in [facility] Social History Smoking Status: Current Every Day Smoker Cigarettes Packs Per Day: 0.5 Last Time Smoked: 11/23/2016 Frequency of Alcohol Use: Rare Hx Recreational Drug Use: No Drugs: None Hx Prescription Drug Abuse: No - Advance Directive Resuscitation Status: Full Code Family History Family History: Reviewed & Not Pertinent Parental Family History Reviewed: No Children Family History Reviewed: No Sibling(s) Family History Reviewed.: No Medication/Allergy Home Medications: Hydromorphone HCl [Dilaudid 2 Mg Tablet] 2 mg PO Q6H PRN #20 tablet 11/07/16 Promethazine HCl [Phenergan 25 mg Tablet] 25 mg PO Q6H PRN #15 tablet 11/07/16 Albuterol Sulfate [Proair HFA Inhalation Aerosol 8.5 gm MDI] 2 puff IH Q4HP PRN 11/23/16 Amitriptyline HCl 25 mg PO Q12 11/23/16 Diazepam [Valium 5 mg Tablet] 5 mg PO Q6HP PRN 11/23/16 Ibuprofen [Advil] 200 mg PO Q6HP PRN 11/23/16 Topiramate [Topamax 25 mg Tablet] 25 mg PO Q12 11/23/16 Allergies/Adverse Reactions: rocuronium Allergy (Severe, Verified 11/07/16 15:50) Cardiac arrest clonidine [Clonidine] Allergy (Verified 11/07/16 15:50) etomidate [Etomidate] Allergy (Verified 11/07/16 15:50) lisinopril Allergy (Verified 11/23/16 07:00) Facial swelling metoclopramide HCl [From Reglan] Allergy (Verified 11/07/16 15:50) Review of Systems All systems: as per PMH Physical Exam Vital Signs: Temp Pulse Resp BP Pulse Ox 36.4 C 79 16 131/99 H 99 11/23/16 12:09 11/23/16 12:09 11/23/16 12:09 11/23/16 12:09 11/23/16 12:09 Intake & Output 11/22/16 11/23/16 11/24/16 06:59 06:59 06:59 Weight 112.5 kg General appearance: PRESENT: mild distress, obese Head exam: PRESENT: normocephalic Eye exam: PRESENT: EOMI Respiratory exam: PRESENT: unlabored Cardiovascular exam: PRESENT: RRR Pulses: PRESENT: normal radial pulses Vascular exam: PRESENT: normal capillary refill GI/Abdominal exam: PRESENT: soft Rectal exam: PRESENT: deferred Extremities exam: PRESENT: other - Upper extremity is immobilized in a shoulder immobilizer. There is no skin abnormalities. Distal neurovascular examination is intact. Psychiatric exam: PRESENT: appropriate affect, normal mood. ABSENT: homicidal ideation, suicidal ideation Skin exam: PRESENT: dry, intact, warm. ABSENT: cyanosis, rash Results Laboratory Results: 11/23/16 05:41 11/23/16 05:41 11/23/16 11/23/16 05:41 05:41 WBC 6.9 RBC 4.10 Hgb 11.8 L Hct 36.5 MCV 89 MCH 28.7 MCHC 32.2 RDW 15.0 H Plt Count 239 Seg Neutrophils % 47.9 Lymphocytes % 43.5 Monocytes % 5.8 Eosinophils % 2.1 Basophils % 0.7 Absolute Neutrophils 3.3 Absolute Lymphocytes 3.0 Absolute Monocytes 0.4 Absolute Eosinophils 0.1 Absolute Basophils 0.0 Sodium 141.5 Potassium 3.6 Chloride 110 H Carbon Dioxide 21 L Anion Gap 11 BUN 13 Creatinine 0.59 Est GFR ( Amer) > 60 Est GFR (Non-Af Amer) > 60 Glucose 88 Calcium 8.9 Impressions: Shoulder X-Ray 11/23/16 02:55 IMPRESSION: No significant interval change in the anterior glenohumeral dislocation. Status: Imported from PACS Assessment & Plan - Diagnosis (1) Dislocation, shoulder, anterior Is this a current diagnosis for this admission?: YesPlan: Plan for closed reduction of her right shoulder dislocation. Any consideration of further stabilization can be considered as an outpatient. - Time Time Spent: 50 to 70 Minutes Anticipated discharge: Home Within: within 24 hours
[2016-11-23] MEDS: RINGERS SOLUTION,LACTATED 1,000 ML IV PRN ×2 (13:19→18:39)
[2016-11-23] MEDS ORDERED: MIDAZOLAM 2 MG/2 ML INJ ONE (14:00)
[2016-11-23] MEDS ORDERED: EPHEDRINE SULFATE INJ 50 MG/1 ML AMPULE ONE (14:00)
[2016-11-23] MEDS ORDERED: ACETAMINOPHEN 100 ML IV ONE (14:01)
[2016-11-23] MEDS ORDERED: DIPHENHYDRAMINE HCL 50 MG/ML VIAL IV PRN (15:39)
[2016-11-23] MEDS ORDERED: MEPERIDINE HCL/PF INJ 25 MG/1 ML DISP.SYRIN IV PRN (15:39)
[2016-11-23] MEDS ORDERED: MORPHINE SULFATE 10 MG/ML INJ IV PRN (15:39)
[2016-11-23] MEDS ORDERED: FENTANYL CITRATE INJ/PF 100 MCG/2 ML AMPUL IV PRN ×2 (15:39)
[2016-11-23] MEDS ORDERED: PROMETHAZINE HCL INJ 25 MG/1 ML VIAL IV PRN ×2 (15:39)
[2016-11-23] MEDS ORDERED: OXYCODONE-ACETAMINOPHEN 5-325 MG TABLET PO PRN ×2 (15:39)
--- NOTE | 2016-11-23 16:03 | Operative Report ---
Operative Report DATE OF SURGERY: 11/23/16 PREOPERATIVE DIAGNOSIS: Right shoulder dislocation OPERATION: Closed reduction under fluoroscopic guidance and conscious sedation SURGEON: DURAN BAKER ANESTHESIA: Moderate Sedation ESTIMATED BLOOD LOSS: 0 PROCEDURE: Patient supine on the operative table following introduction of conscious sedation, the right shoulder is manipulated under fluoroscopic guidance to affect an anatomic reduction. It is examined in 2 planes as well as with fluoroscopy real-time to convince myself that this was a stable reduction. Immobilizer is applied. The patient was subsequently awakened and sent PACU.
[2016-11-23] MEDS ORDERED: LORAZEPAM INJ 2 MG/1 ML VIAL IV ONE (16:15)
[2016-11-23] MEDS ORDERED: LORAZEPAM INJ 2 MG/1 ML VIAL ONE (16:17)
--- NOTE | 2016-11-23 16:46 | RADIOLOGY REPORT (SQ) ---
EXAM DESCRIPTION: SHOULDER RIGHT 2 OR MORE VIEWS; NO CHG FLUORO COMPLETED DATE/TIME: 11/23/2016 4:30 pm REASON FOR STUDY: CLOSED REDUCTION RT SHOULDER DISLOCATION IN OR2 COMPARISON: 11/23/2016 preoperative images. FLUOROSCOPY TIME: 0.1 minutes 2 images saved to PACS. TECHNIQUE: Intra-operative images acquired during surgical procedure to evaluate progress. NUMBER OF IMAGES: 2 LIMITATIONS: None. FINDINGS: 2 images are obtained. Probable reduction of the dislocation. Please correlate with oper ative note. IMPRESSION: IMAGE(S) OBTAINED DURING PROCEDURE. COMMENT: Quality ID [id number]: Final reports for procedures using fluoroscopy that document radiation exp osure indices, or exposure time and number of fluorographic images (if radiation exposure indices are not available) Please consult full operative report of the attending physician for description of the procedure. TECHNICAL DOCUMENTATION: JOB ID: [id number] [employer]- All Rights Reserved
[2016-11-23] MEDS ORDERED: DIAZEPAM INJ 10 MG/2 ML DISP.SYRIN IV PRN (16:59)
[2016-11-23] MEDS ORDERED: ONDANSETRON HCL INJ/PF 4 MG/2 ML SDV IV PRN (16:59)
[2016-11-23] MEDS: OXYCODONE HCL IR 5 MG TABLET PO PRN (20:42)
--- NOTE | 2016-11-23 21:45 | RADIOLOGY REPORT (SQ) ---
EXAM DESCRIPTION: SHOULDER RIGHT 1 VIEW COMPLETED DATE/TIME: 11/23/2016 6:36 pm REASON FOR STUDY: JUST REDUCED COMPARISON: Operative and preoperative radiographs. FINDINGS: Note: Single-view postoperative image of the shoulder obtained portably. The shoulder st ill looks slightly anteriorly located with respect to the glenoid. Some of this may be positional. To confirm location, scapular Y or axillary views might be obtained. TECHNICAL DOCUMENTATION: JOB ID: [id number]
[2016-11-24] MEDS: MORPHINE SULFATE 10 MG/ML INJ IV PRN ×6 (01:03→18:21)
[2016-11-24] MEDS: RINGERS SOLUTION,LACTATED 1,000 ML IV PRN ×2 (01:07→17:34)
--- NOTE | 2016-11-24 14:42 | RADIOLOGY REPORT (SQ) ---
EXAM DESCRIPTION: CT RT UPPER EXTREMITY WITHOUT COMPLETED DATE/TIME: 11/24/2016 1:50 pm REASON FOR STUDY: RT SHOULDER PAIN COMPARISON: Shoulder plain films 11/23/2016, 10/21/2016, 04/12/2016 CT arthrogram right shoulder 07/04/2009 CT right shoulder 05/28/2015 TECHNIQUE: Axial [facility] with reformatted oblique coronal and ob lique sagittal imaging windowed for bone and soft tissues. All CT scanners at this facility use dose modulation, iterative reconstruction, and/or weight based d osing when appropriate to reduce radiation dose to as low as reasonably achievable (ALARA). [facility]: Dose Right [facility]: CareDose [facility]: Dose Right [facility]: Teradose 4D [facility]: Smart Technologies RADIATION DOSE: Up-to-date CT equipment and radiation dose reduction techniques were employed. CTDIv ol: 32.1 mGy. DLP: 727 mGy-cm. mGy. LIMITATIONS: Non arthrogram CT FINDINGS: SOFT TISSUES: No axillary adenopathy. There is a downward sloping acromion with mild narr owing of the subacromial space on coronal reconstruction image 50 and sagittal reconstruction image 1 8. BONY ARCHITECTURE: No fracture. Old screw tracts in the right humeral head without hardware. There are 2 screws in the anterior 3rd of the bony glenoid on axial image 37. Manning-Sachs deformity pos terior right humeral head. GLENOHUMERAL JOINT: Very mild ventral subluxation of the humeral head with respect to the bony glenoi d on axial image 31. There is glenohumeral joint space narrowing with a [id number] appearance. ACROMION AND AC JOINT: Downward sloping acromion with narrowing of subacromial space and mild bony sp urring at the AC joint, best shown on coronal images 16-19. ROTATOR CUFF: Grossly normal thickness on these non arthrogram images GLENOID, LABRUM AND BICEPS: Not well seen OTHER: No other significant finding. IMPRESSION: Very mild ventral subluxation of the humeral head with respect to the bony glenoid Manning-Sachs deformity right humeral head Narrowing of the subacromial space due to a downward sloping acromion Old surgery with metallic screws in the anterior mid 3rd of the glenoid TECHNICAL DOCUMENTATION: JOB ID: [id number] Quality ID # [id number]: Final reports with documentation of one or more dose reduction techniques (e.g., Au tomated exposure control, adjustment of the mA and/or kV according to patient size, use of iterative reconstruction technique) 2010 [employer]- All Rights Reserved
[2016-11-24] MEDS ORDERED: DIAZEPAM 5 MG TABLET PO PRN (17:30)
[2016-11-24] MEDS: OXYCODONE HCL IR 5 MG TABLET PO PRN (22:18)
[2016-11-25] MEDS: MORPHINE SULFATE 10 MG/ML INJ IV PRN ×4 (00:45→11:48)
--- NOTE | 2016-11-25 07:12 | PDOC DISCHARGE SUMMARY ---
General - Admit/Disc Date/PCP Admission Date/Primary Care Provider: 11/23/16 03:36 Discharge Date: 11/25/16 - Discharge Diagnosis (1) Dislocation, shoulder, anterior Is this a current diagnosis for this admission?: Yes - Additional Information Resuscitation Status: Full Code Discharge Diet: As Tolerated, Regular Discharge Activity: Balance Activity w/Rest Home Medications: Hydromorphone HCl [Dilaudid 2 mg Tablet] 2 mg PO Q6H PRN #20 tablet 11/07/16 Promethazine HCl [Phenergan 25 mg Tablet] 25 mg PO Q6H PRN #15 tablet 11/07/16 Albuterol Sulfate [Proair HFA Inhalation Aerosol 8.5 gm MDI] 2 puff IH Q4HP PRN 11/23/16 Amitriptyline HCl 25 mg PO Q12 11/23/16 Diazepam [Valium 5 mg Tablet] 5 mg PO Q6HP PRN 11/23/16 Ibuprofen [Advil] 200 mg PO Q6HP PRN 11/23/16 Topiramate [Topamax 25 mg Tablet] 25 mg PO Q12 11/23/16 Oxycodone HCl [Oxy-Ir 5 mg Tablet] 5 mg PO Q6HP PRN #0 tablet 11/25/16 History of Present Illness History of Present Illness: With recurrent right shoulder instability Hospital Course Hospital Course: 31-year-old black female with a long-standing history of recurrent right shoulder instability and at least 2 open surgical procedures in [place] that have not rendered stability. Presented to the emergency room with a right shoulder dislocation. Attempted reduction was performed under conscious sedation which was unsuccessful. The patient was admitted to the orthopedic service for shoulder reduction and evaluation. Physical Exam Vital Signs: Temp Pulse Resp BP Pulse Ox 36.6 C 84 20 151/119 H 94 11/25/16 04:03 11/25/16 04:03 11/25/16 04:03 11/25/16 04:03 11/25/16 04:03 Intake & Output 11/24/16 11/25/16 11/26/16 06:59 06:59 06:59 Intake Total 1200 1400 Balance 1200 1400 Weight 111.9 kg General appearance: PRESENT: obese Head exam: PRESENT: normocephalic Eye exam: PRESENT: EOMI Respiratory exam: PRESENT: unlabored Cardiovascular exam: PRESENT: RRR Pulses: PRESENT: normal radial pulses GI/Abdominal exam: PRESENT: soft Rectal exam: PRESENT: deferred Extremities exam: PRESENT: other - Shoulder tender and passive range of motion is painful. Distal neurovascular examination is intact. Neurological exam: PRESENT: alert, awake, oriented to person, oriented to place , oriented to time, oriented to situation, CN II-XII grossly intact. ABSENT: motor sensory deficit Psychiatric exam: PRESENT: appropriate affect, normal mood. ABSENT: homicidal ideation, suicidal ideation Skin exam: PRESENT: dry, intact, warm. ABSENT: cyanosis, rash Results Laboratory Results: 11/23/16 05:41 11/23/16 05:41 Impressions: Fluoroscopy 11/23/16 15:15 IMPRESSION: IMAGE(S) OBTAINED DURING PROCEDURE. Shoulder X-Ray 11/23/16 15:15 IMPRESSION: IMAGE(S) OBTAINED DURING PROCEDURE. Upper Extremity CT 11/24/16 00:00 IMPRESSION: Very mild ventral subluxation of the humeral head with respect to the bony glenoid [place]-Sachs deformity right humeral head Narrowing of the subacromial space due to a downward sloping acromion Old surgery with metallic screws in the anterior mid 3rd of the glenoid Status: Imported from PACS Plan Discharge Plan: 31-year-old black female with recurrent right shoulder instability status post at least 2 previous surgical procedures in [place]. Patient is now reduced as evidenced by recent CT scan. There are multiple intra-articular issues. Dr. Schmidt has been consulted and will discuss surgical options with the patient.
[2016-11-25] MEDS: OXYCODONE HCL IR 5 MG TABLET PO PRN (09:00)
[2016-11-25 14:51] VITALS: BP 142/93
== END 2016-11-25 15:55 | disposition home or self-care (01) ==
LOC: ER 01:34 → UNDOADMIN 03:36 → OROUT 03:36 → EH 03:36 → 4N 06:05 → UNDODISIN 11-25 15:55 → OROUT 11-25 15:55
PROVIDERS: ATTEND Orthopaedic Surgery
PROC: 0RSJXZZ Reposition Right Shoulder Joint, External Approach (ICD-10-PCS; principal; 2016-11-23 14:00)
DX: M24.411 Recurrent dislocation, right shoulder (principal); I10 Essential (primary) hypertension; G40.909 Epilepsy, unspecified, not intractable, without status epilepticus; F17.210 Nicotine dependence, cigarettes, uncomplicated; E66.9 Obesity, unspecified; Z68.39 Body mass index [BMI] 39.0-39.9, adult
CPT/HCPCS: 93005; 99285; 99153; 99152; 96374; 36415; 84703; 85025; 85610; 85730; 80048; 73020; 73030; 73200; 93010; 23655; L3650; J2250; J1100; J3360 ×2; J3010; J2270 ×3; J2060; J2405; J7120 ×2; J2704; J3490; J0131; 01620

== ENCOUNTER 2016-12-15 10:19 | Emergency (ER) | payer OTHER, MEDICAID ==
[2016-12-15] MEDS ORDERED: MORPHINE SULFATE 10 MG/ML INJ IV ONE (10:37)
--- NOTE | 2016-12-15 10:41 | ER Document Report ---
ED Headache - General Stated Complaint: HEADACHE/POSSIBLE SEIZURE Time Seen by Provider: 12/15/16 10:32 Information source: Patient Notes: Pt is a 31 yo F with PMH of pseudotumor cerebri with previous NETWORK DIRECTOR shunt at [facility] in 2004 that was unsuccessful in relieving her symptoms and so the patient in 2013 was treated at [facility] and under neurosurgeon Dr. Rodriguez had a procedure with placement of a sigmoid sinus stent. Patient has been to multiple hospitals with complications from this stent placement with intermittent seizures. She was seen here recently in October with a similar presentation requiring lumbar puncture. She has been transferred to [facility] in the past multiple times in supposedly has been told to follow-up with the above surgeon. Patient has never performed follow-up. Patient presents today with a witnessed seizure, tonic-clonic in nature, with a postictal period. Patient also complains of right shoulder pain. Patient has dislocated her right shoulder with surgery in the past. Patient complains only of right shoulder pain and a mild frontal headache. She states the frontal headache started yesterday. Slow onset, no blurry vision, nausea and vomiting 1. She denies any weakness or numbness to her arms other than the obvious shoulder pain and arm limitation. States she has not taken home Diamox, Topamax, blood pressure medications and greater than 1 week since she has been out of her medications. Patient previously was followed by [place] [facility], but does not have a current neurologist here in [place]. TRAVEL OUTSIDE OF THE [place] IN LAST 30 DAYS: Yes - HPI Patient complains to provider of: Headache, Other - seizure Patient reports: Other - See above Onset: Other Onset was: Abrupt Timing: Better Quality of pain: Other - See above Severity: None Associated symptoms: Other - See above Similar symptoms previously: Yes Recently seen / treated by doctor: No - Related Data Allergies/Adverse Reactions: rocuronium Allergy (Severe, Verified 12/15/16 11:00) Cardiac arrest clonidine [Clonidine] Allergy (Verified 12/15/16 11:00) etomidate [Etomidate] Allergy (Verified 12/15/16 11:00) lisinopril Allergy (Verified 12/15/16 11:00) Facial swelling metoclopramide HCl [From Reglan] Allergy (Verified 12/15/16 11:00) Past Medical History - General Information source: Patient - Social History Smoking Status: Unknown if Ever Smoked Cigarette use (# per day): No Chew tobacco use (# tins/day): No Smoking Education Provided: No Frequency of alcohol use: None Family History: Reviewed & Not Pertinent - Past Medical History Cardiac Medical History: Reports: Hx Hypertension Neurological Medical History: Reports: Hx Seizures Renal/ Medical History: Reports: Hx Kidney Stones. Denies: Hx Peritoneal Dialysis Past Surgical History: Reports: Hx Section, Hx Neurologic Surgery - intercranial shunt, Hx Orthopedic Surgery - Patient is status post a right [place] repair in [facility] - Immunizations Hx Diphtheria, Pertussis, Tetanus Vaccination: Yes Review of Systems - Review of Systems Constitutional: denies: Fever EENT: denies: Eye discharge, Nose discharge Cardiovascular: denies: Chest pain, Palpitations Respiratory: denies: Short of breath Gastrointestinal: denies: Vomiting Genitourinary: denies: Dysuria Musculoskeletal: Leg swelling Skin: Other - no hives. denies: Rash Neurological/Psychological: Other - no slurred speech -: Yes All other systems reviewed and negative Physical Exam - Vital signs Vitals: Resp Pulse Ox 14 100 12/15/16 13:03 12/15/16 13:03 Notes: Reviewed vital signs and nursing note as charted by RN. CONSTITUTIONAL: Alert and oriented and responds appropriately to questions. Well -appearing; well-nourished HEAD: Normocephalic; atraumatic EYES: PERRL; full extraocular range of motion ENT: Normal nose; no rhinorrhea; moist mucous membranes; pharynx without lesions noted NECK: Supple without meningismus; non-tender; no cervical lymphadenopathy, no masses CARD: Regular rate and rhythm; no murmurs, no clicks, no rubs, no gallops; symmetric distal pulses RESP: Normal chest excursion without splinting or tachypnea; breath sounds clear and equal bilaterally ABD/GI: Normal bowel sounds; non-distended; soft, non-tender, no rebound, no guarding; no palpable organomegaly or masses BACK: The back appears normal and is non-tender to palpation, there is no CVA tenderness EXT: Anterior right shoulder surgical scars. The patient shoulder does appear and feel malpositioned. Neurovascularly intact distally SKIN: Normal color for age and race; warm; dry; good turgor; capillary refill < 2 seconds; no acute lesions noted NEURO: CN 2 through 12. Excluding the right arm the patient has 5 out of 5 bilateral upper and lower extremity strength or sensation intact to light touch PSYCH: The patient's mood and manner are appropriate. Grooming and personal hygiene are appropriate. Course - Re-evaluation Re-evalutation: 12/15/16 10:44 Given the above history and physical examination with previous treatments as recorded, I will provide the patient a dose of her Topamax, obtain a CT scan of the head, obtain basic labs, coagulation profile, and consider lumbar puncture. I have called and left a message for the patient's neurosurgeon in [facility]. 12/15/16 11:12 Going over the patient's previous orthopedic report and results appears that the patient in November had an attempted shoulder dislocation reduction under conscious sedation in the emergency department which was unsuccessful. Patient then went to the operating room and had another repeat conscious sedation with successful reduction. Patient has a CT scan of the shoulder and was told to follow-up with a specialist with the patient most likely needed a "graft". Pt has a history of 2 open surgical procedures in [place] that have not rendered stability. 12/15/16 12:40 They have tried multiple ultrasound-guided IV sedative been unsuccessful. We will attempt to do an arterial line for blood. We have evaluated the patient's neck and we see no obvious seizures. I am not sure exactly with the sigmoid sinus stent is located and therefore I am a little hesitant to perform an IJ. I have not yet been called back by the neurosurgical PA. We have also called anesthesia who will attempt an ultrasound-guided IV as well. 12/15/16 13:57 I called and spoke to the neurosurgical PA from [facility]. She states that the patient did have the above surgical procedure in 2013. She also states that the patient has a history of bipolar and psychogenic seizures. She states that the patient did not have a previous NETWORK DIRECTOR shunt but had an LP shunt placed at the [facility]. She states normally the neurosurgeon evaluate the shunt with an MRV without contrast. We have been able to obtain blood. We are trying again to obtain IV access. Patient states she is unable to receive etomidate as she believes "my heart stopped" during the previous surgical procedure secondary to this medication. CT scan of the head is recorded. Right shoulder x-ray shows an anterior dislocation. Given the chronic elevated intracranial pressure for the patient, with multiple studies showing little to no increase in intracranial pressure with ketamine, I believe reasonable to provide ketamine to this patient. 12/15/16 14:33 Ultrasound-guided IV access is unsuccessful by another provider's attempt. I had a long discussion with the patient about the need for IV access. I have explained the risks and benefits of performing a central line. She understands these risks. I did confirm with the patient that she never had a NETWORK DIRECTOR shunt. Patient is aware that she had an LP shunt in the past. Patient's labs are unremarkable. If I am able to reduce the patient's shoulder, lumbar puncture was able to be performed, and I am able to obtain an MRV that is unremarkable, I do not believe that the patient will require IV access. I am concerned about the risks and benefits of performing a central line if this is not needed. Given the transient and only theoretical increased intracranial pressure from ketamine with multiple studies showing no increased intracranial pressure, and the patient that most likely has chronic increased intracranial pressure, with supposedly a cardiac arrest previously from etomidate, I believe attempting to perform IM ketamine with right shoulder reduction to be less risky for the patient than a central line procedure followed by sedation as well. 12/15/16 15:21 Conscious sedation with intramuscular ketamine was successful. 12/15/16 16:47 Opening pressure was 25, closing pressure was 13. 12/15/16 19:13 Patient states she is headache free. They are taking the patient MRV at this time. Patient still has no focal neurological deficits. Right shoulder is improved regarding pain. - Vital Signs Vital signs: Temp Pulse Resp BP Pulse Ox 98.4 F 78 18 153/72 H 100 12/15/16 15:01 12/15/16 18:58 12/15/16 18:58 12/15/16 18:58 12/15/16 18:58 - Laboratory Result Diagrams: 12/15/16 13:49 12/15/16 13:49 Laboratory results interpreted by me: 12/15/16 12/15/16 12/15/16 13:49 13:49 13:49 RDW 15.7 H APTT 22.6 L Chloride 108 H Carbon Dioxide 20 L Procedures - Conscious Sedation Conscious sedation Time started: 15:02 Time completed: 15:19 Consent obtained: Yes Indication: Dislocation of the shoulder with reduction Prior complications: General anesthesia Pt with a mild systemic disease.: P2. - ASA Classification. Airway Evaluation: Obese Mallampati Classification: Class 2 Used during procedure: Suction available, IV access obtained, Pulse ox on pt., quality assurance monitor chassis on pt. Medications administered: Ketamine Reversal agents: None I personally performed/intraservice time: Sedation, Procedure, 30 min or less Complications: No - Joint Reduction/Fracture Care Right Shoulder Time completed: 15:20 Consent obtained: Yes Conscious sedation: Yes Pre-procedure NV exam: Yes Manipulation comment: Patient countertraction to reduce the right shoulder dislocation Post-procedure NV exam: Yes Post-reduction x-ray: Joint reduced Reduction attempts: 2 Complications: No Discharge - Discharge Clinical Impression: Seizure, Recurrent dislocation, right shoulder, Pseudotumor cerebri Condition: Good Disposition: HOME, SELF-CARE Additional Instructions: Come back with any return of headache, repeat seizures, repeat arm pain, worsening arm pain, or any other acute problems. Please make sure that she follow-up with the neurosurgery [facility] as we have discussed and stressed with you. Prescriptions: Acetazolamide [Diamox 250 mg Tab] 250 mg PO Q12 #60 tab Lisinopril 20 mg PO DAILY #30 tablet Topiramate [Topamax 100 Mg Tablet] 100 mg PO BID #60 tablet
[2016-12-15] MEDS ORDERED: ACETAZOLAMIDE 250 MG TABLET PO ONE (10:45)
[2016-12-15] MEDS ORDERED: TOPIRAMATE 100 MG TABLET PO ONE (10:45)
--- NOTE | 2016-12-15 11:25 | RADIOLOGY REPORT (SQ) ---
EXAM DESCRIPTION: CT HEAD WITHOUT COMPLETED DATE/TIME: 12/15/2016 11:00 am REASON FOR STUDY: 18, Headache with seizure; h/o pseudotumor COMPARISON: 11/07/2016. TECHNIQUE: Axial images acquired through the brain without intravenous contrast. Images reviewed wi th bone, brain and subdural windows. Images stored on PACS. All CT scanners at this facility use dose modulation, iterative reconstruction, and/or weight based d osing when appropriate to reduce radiation dose to as low as reasonably achievable (ALARA). [facility]: Dose Right [facility]: CareDose [facility]: Dose Right [facility]: Teradose 4D [facility]: Smart [employer] RADIATION DOSE: Up-to-date CT equipment and radiation dose reduction techniques were employed. CTDIv ol: 64.6 mGy. DLP: 1034 mGy-cm. mGy. LIMITATIONS: None. FINDINGS: VENTRICLES: Normal size and contour. CEREBRUM: No masses. No hemorrhage. No midline shift. Normal velez/white matter differentiation. N o evidence for acute infarction. CEREBELLUM: No masses. No hemorrhage. No alteration of density. No evidence for acute infarction. EXTRAAXIAL SPACES: No fluid collections. No masses. ORBITS AND GLOBE: No intra- or extraconal masses. Normal contour of globe without masses. CALVARIUM: No fracture. PARANASAL SINUSES: No fluid or mucosal thickening. SOFT TISSUES: No mass or hematoma. OTHER: Again seen is a stent in the right transverse sinus. IMPRESSION: STABLE APPEARANCE OF THE STENT IN THE RIGHT TRANSVERSE SINUS. NO ACUTE FINDINGS. TECHNICAL DOCUMENTATION: JOB ID: [id number] Quality ID # [id number]: Final reports with documentation of one or more dose reduction techniques (e.g., Au tomated exposure control, adjustment of the mA and/or kV according to patient size, use of iterative reconstruction technique) 2010 [employer]- All Rights Reserved
--- NOTE | 2016-12-15 11:26 | RADIOLOGY REPORT (SQ) ---
EXAM DESCRIPTION: SHOULDER RIGHT 2 OR MORE VIEWS COMPLETED DATE/TIME: 12/15/2016 11:12 am REASON FOR STUDY: 18, Right shoulder pain COMPARISON: 11/23/2016. NUMBER OF VIEWS: Three views. TECHNIQUE: Internal rotation, external rotation, and Y view images acquired of the right shoulder. LIMITATIONS: None. FINDINGS: MINERALIZATION: Normal. BONES: Anterior dislocation of the humeral head. Hardware in the glenoid. JOINTS: No dislocation. VISUALIZED LUNGS AND RIBS: No pneumothorax. No rib fracture. SOFT TISSUES: No radiopaque foreign body. OTHER: No other significant finding. IMPRESSION: ANTERIOR DISLOCATION OF THE HUMERAL HEAD. TECHNICAL DOCUMENTATION: JOB ID: [id number] [employer]- All Rights Reserved
[2016-12-15] MEDS ORDERED: MORPHINE SULFATE 10 MG/ML INJ ONE (13:48)
[2016-12-15 14:02] LABS: PROTHROMBIN TIME 11.7 SEC (11.4-15.4)
[2016-12-15 14:03] LABS: PARTIAL THROMBOPLASTIN TIME 22.6 SEC (23.5-35.8)
[2016-12-15 14:11] LABS: ABSOLUTE BASOPHILS # (AUTO) 0.1 10^3/uL (0.0-0.2); ABSOLUTE EOSINOPHILS # (AUTO) 0.1 10^3/uL (0.0-0.6); ABSOLUTE LYMPHOCYTES (AUTO) 2.7 10^3/uL (0.5-4.7); ABSOLUTE MONOCYTES (AUTO) 0.4 10^3/uL (0.1-1.4); ABSOLUTE NEUT (AUTO) 3.3 10^3/uL (1.7-8.2); BASOPHILS % (AUTO) 1.3 % (0-2); EOSINOPHILS % (AUTO) 1.4 % (0-6); HEMATOCRIT 39.4 % (36.0-47.0); HEMOGLOBIN 13.4 g/dL (12.0-15.5); HGB HCT DIFFERENCE 0.8; LYMPHOCYTES % (AUTO) 40.9 % (13-45); MEAN CORPUSCULAR HEMOGLOBIN 29.6 pg (27.0-33.4); MEAN CORPUSCULAR HGB CONC 33.9 g/dL (32.0-36.0); MEAN CORPUSCULAR VOLUME 87 fl (80-97); MONOCYTES % (AUTO) 5.4 % (3-13); RED BLOOD COUNT 4.52 10^6/uL (3.72-5.28); RED CELL DISTRIBUTION WIDTH 15.7 % (11.5-14.0); WHITE BLOOD COUNT 6.5 10^3/uL (4.0-10.5)
[2016-12-15 14:29] LABS: ALANINE AMINOTRANSFERASE 18 U/L (9-52); ALBUMIN 4.5 g/dL (3.5-5.0); ALKALINE PHOSPHATASE 89 U/L (38-126); ANION GAP 13 (5-19); ASPARTATE AMINO TRANSFERASE 24 U/L (14-36); BILIRUBIN,DIRECT 0.4 mg/dL (0.0-0.4); BILIRUBIN,TOTAL 0.4 mg/dL (0.2-1.3); BLOOD UREA NITROGEN 13 mg/dL (7-20); CALCIUM 9.5 mg/dL (8.4-10.2); CARBON DIOXIDE 20 mmol/L (22-30); CHLORIDE 108 mmol/L (98-107); CREATININE RESULT 0.57 mg/dL (0.52-1.25); GLUCOSE 85 mg/dL (75-110); POTASSIUM 4.1 mmol/L (3.6-5.0); SODIUM 140.6 mmol/L (137-145); TOTAL PROTEIN 8.2 g/dL (6.3-8.2)
[2016-12-15] MEDS ORDERED: KETAMINE HCL INJ 500 MG/10 ML VIAL IM ONE (14:41)
--- NOTE | 2016-12-15 15:49 | RADIOLOGY REPORT (SQ) ---
EXAM DESCRIPTION: SHOULDER RIGHT 2 OR MORE VIEWS COMPLETED DATE/TIME: 12/15/2016 3:29 pm REASON FOR STUDY: reduction of shoulder COMPARISON: 12/15/2016. NUMBER OF VIEWS: Two views. TECHNIQUE: Frontal and lateral images acquired of the right shoulder. LIMITATIONS: None. FINDINGS: MINERALIZATION: Normal. BONES: No acute fracture or dislocation. Hardware in the glenoid. No worrisome bone lesions. JOINTS: No dislocation. VISUALIZED LUNGS AND RIBS: No pneumothorax. No rib fracture. SOFT TISSUES: No radiopaque foreign body. OTHER: No other significant finding. IMPRESSION: INTERVAL CLOSED REDUCTION OF THE DISLOCATION OF THE RIGHT HUMERAL HEAD, IN SATISFACTORY POSITION. TECHNICAL DOCUMENTATION: JOB ID: [id number] [employer]- All Rights Reserved
--- NOTE | 2016-12-15 17:02 | RADIOLOGY REPORT (SQ) ---
EXAM DESCRIPTION: LUMBAR PUNCTURE COMPLETED DATE/TIME: 12/15/2016 4:53 pm REASON FOR STUDY: Pseudotumor cerebri COMPARISON: None. FLUOROSCOPY TIME: 16 seconds. 2 images saved to PACS. TECHNIQUE: Fluoroscopic guided lumbar puncture with opening and closing pressures. LIMITATIONS: None. PROCEDURE: After written consent and assessment were obtained, the patient was brought into the fluo roscopy room and placed prone on the table. The patient's lower back was prepped in a sterile fashio n and an entry site was selected under live fluoroscopic guidance. The entry site was anesthetized wi th 1% lidocaine. The spinal needle was advanced through the skin and into the thecal sac at the leve l of L3-L4. An opening pressure of 25 mm water units was obtained. After approximately 22ml of CSF w as drained, a closing pressure of 12 mm water units was obtained. The needle was removed and a steril e bandage was placed of the site. Specimens were not sent to the lab for testing. A fluoroscopic spot image was saved to PACS confirming level access. FINDINGS: Clear CSF IMPRESSION: Lumbar puncture under fluoroscopy. No immediate complication. COMMENT: Patient medication list reviewed:Yes- Quality ID# [id number]:Eligible professional attests to docu menting in the medical record they obtained, updated, or reviewed the patient's current medications.. Quality ID 145: Final reports for procedures using fluoroscopy that document radiation exposure lexie brayden, or exposure time and number of fluorographic images (if radiation exposure indices are not avail able) TECHNICAL DOCUMENTATION: JOB ID: [id number] [employer]- All Rights Reserved
[2016-12-15] MEDS ORDERED: DIAZEPAM 5 MG TABLET PO ONE (18:44)
[2016-12-15 20:41] VITALS: BP 152/99
--- NOTE | 2016-12-15 21:33 | RADIOLOGY REPORT (SQ) ---
EXAM DESCRIPTION: MRA HEAD WITHOUT COMPLETED DATE/TIME: 12/15/2016 8:15 pm REASON FOR STUDY: 18, Eval patency of the cerebral shunt per neurosu COMPARISON: None. TECHNIQUE: Multi plantar oral multisequence imaging was obtained for performance of an MRV. LIMITATIONS: None. FINDINGS: By clinical history there is a stent in the right transverse sinus. There is non visualiz ation of the transverse sinus on the right such that I cannot confirm patency of the transverse sinus on the right. There is non visualization of the inferior sagittal sinus which can be a normal findi ng there is incomplete visualization of the sigmoid sinus on the right. Remaining venous sinuses are patent. IMPRESSION: There is non visualization of the transverse sinus on the right such that I cannot confi rm patency of the transverse sinus on the right. Other findings as noted above TECHNICAL DOCUMENTATION: JOB ID: [id number] [employer]- All Rights Reserved
== END 2016-12-15 20:29 | disposition home or self-care (01) ==
LOC: ER 10:19
DX: R51 Headache (principal)
CPT/HCPCS: 99285; 99153; 99152; 96374; 36415; 85025; 85610; 85730; 80053; 70544; 73030; 62270; 70450; 36000; L3650; J3490 ×2; J2270; C1751

== ENCOUNTER 2016-12-18 18:18 | Emergency (ER) | payer OTHER, MEDICAID ==
[2016-12-18 18:28] VITALS: BP 142/107
[2016-12-18] MEDS ORDERED: NORMAL SALINE 1000 ML 1,000 ML IV ONE (19:07)
[2016-12-18] MEDS ORDERED: ONDANSETRON HCL INJ/PF 4 MG/2 ML SDV IV ONE (19:08)
--- NOTE | 2016-12-18 19:09 | ER Document Report ---
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 She underwent a spinal tap yesterday in our radiology department and now complains of having a spinal headache with pain at the back of her head and neck associated with nausea and vomiting. Denies fever. TRAVEL OUTSIDE OF THE U[place]S. IN LAST 30 DAYS: No - Related Data Allergies/Adverse Reactions: rocuronium Allergy (Severe, Verified 12/18/16 18:25) Cardiac arrest clonidine [Clonidine] Allergy (Verified 12/18/16 18:25) etomidate [Etomidate] Allergy (Verified 12/18/16 18:25) lisinopril Allergy (Verified 12/18/16 18:25) Facial swelling metoclopramide HCl [From Reglan] Allergy (Verified 12/18/16 18:25) Past Medical History - Social History Smoking Status: Current Some Day Smoker Chew tobacco use (# tins/day): No Frequency of alcohol use: None Drug Abuse: None Family History: Reviewed & Not Pertinent Patient has suicidal ideation: No Patient has homicidal ideation: No - Past Medical History Cardiac Medical History: Reports: Hx Hypertension Neurological Medical History: Reports: Hx Seizures Renal/ Medical History: Reports: Hx Kidney Stones. Denies: Hx Peritoneal Dialysis Past Surgical History: Reports: Hx Section, Hx Neurologic Surgery - intercranial shunt, Hx Orthopedic Surgery - Patient is status post a right Bankart repair in [facility], [place] - Immunizations Hx Diphtheria, Pertussis, Tetanus Vaccination: Yes Physical Exam - Vital signs Vitals: Temp Pulse Resp BP Pulse Ox 97.7 F 96 16 142/107 H 100 12/18/16 18:25 12/18/16 18:25 12/18/16 18:25 12/18/16 18:25 12/18/16 18:25 Course - Vital Signs Vital signs: Temp Pulse Resp BP Pulse Ox 97.7 F 96 16 142/107 H 100 12/18/16 18:25 12/18/16 18:25 12/18/16 18:25 12/18/16 18:25 12/18/16 18:25
== END 2016-12-18 20:25 | disposition left against medical advice (07) ==
LOC: ER 18:18
DX: R51 Headache (principal); G93.2 Benign intracranial hypertension; F17.200 Nicotine dependence, unspecified, uncomplicated; R11.2 Nausea with vomiting, unspecified; Z98.890 Other specified postprocedural states; Z53.20 Procedure and treatment not carried out because of patient's decision for unspecified reasons; Z88.8 Allergy status to other drugs, medicaments and biological substances; Z88.4 Allergy status to anesthetic agent
CPT/HCPCS: 99281

== ENCOUNTER 2016-12-31 19:04 | Emergency (ER) | payer OTHER, MEDICAID ==
--- NOTE | 2016-12-31 19:29 | ER Document Report ---
ED Shoulder Pain/Injury - General Stated Complaint: SHOULDER PAIN Time Seen by Provider: 12/31/16 19:22 Mode of Arrival: Stretcher TRAVEL OUTSIDE OF THE U.S. IN LAST 30 DAYS: No - HPI Notes: 31-year-old female presents with right shoulder and low back pain after suffering a fall. She was apparently leaning against a loose pole and fell hitting the ground striking her right shoulder and right face. She denies any neck pain headache loss of consciousness. She has moderate low back pain. She has had prior shoulder dislocation and feels like it is out of place. Denies any nausea or vomiting. No abdominal pain. Denies any other injury, numbness weakness or tingling. Pain worse with movement and severe in right shoulder. Denies recent illness cough cold symptoms rhinorrhea or sore throat. She has been n.p.o. with nothing to eat or drink since 930 this morning. - Related Data Allergies/Adverse Reactions: rocuronium Allergy (Severe, Verified 12/18/16 18:25) Cardiac arrest clonidine [Clonidine] Allergy (Verified 12/18/16 18:25) etomidate [Etomidate] Allergy (Verified 12/18/16 18:25) lisinopril Allergy (Verified 12/18/16 18:25) Facial swelling metoclopramide HCl [From Reglan] Allergy (Verified 12/18/16 18:25) Past Medical History - Social History Smoking Status: Unknown if Ever Smoked Family History: Reviewed & Not Pertinent - Past Medical History Cardiac Medical History: Reports: Hx Hypertension Neurological Medical History: Reports: Hx Seizures Renal/ Medical History: Reports: Hx Kidney Stones. Denies: Hx Peritoneal Dialysis Past Surgical History: Reports: Hx Section, Hx Neurologic Surgery - intercranial shunt, Hx Orthopedic Surgery - Patient is status post a right Bankart repair in [facility] - Immunizations Hx Diphtheria, Pertussis, Tetanus Vaccination: Yes Review of Systems - Review of Systems -: Yes All other systems reviewed and negative Physical Exam - Vital signs Vitals: Resp Pulse Ox 16 97 12/31/16 21:44 12/31/16 21:44 Notes: Please see nurse's note - Notes Notes: GENERAL: VS as per nursing doc. Well-appearing, well-nourished and in no acute distress. Temporary shoulder sling in place HEAD: Atraumatic, normocephalic. EYES: Pupils equal round and reactive to light, extraocular movements intact, sclera anicteric, no conjunctival injection or discharge. ENT: Nares patent, oropharynx clear without exudates, moist mucous membranes. NECK: Normal range of motion, supple without lymphadenopathy. Nontender to palpation LUNGS: Breath sounds clear to auscultation bilaterally and equal. No wheezes rales or rhonchi. HEART: Regular rate and rhythm without murmurs. ABDOMEN: Soft, non-tender. BACK: No CVA tenderness. Moderate tenderness in the midline and paraspinal lumbar musculature EXTREMITIES: Normal range of motion except for the right shoulder which appears to show anterior shoulder displacement of the humeral head. She holds it abducted and elbow flexed. She has normal wrist extension. Slight decreased sensation over the lateral deltoid region. Neurovascularly intact distally otherwise with 2+ radial pulse NEUROLOGICAL: Cranial nerves grossly intact. Normal speech. Normal sensory and motor exams. No gross cerebellar abnormalities. PSYCH: Normal mood, normal affect. SKIN: Warm, dry, normal turgor, no lesions noted. No laceration. Course - Vital Signs Vital signs: Temp Pulse Resp BP Pulse Ox 18 132/80 H 95 12/31/16 23:01 12/31/16 22:26 12/31/16 23:01 Procedures - Joint Reduction/Fracture Care Right Shoulder Consent obtained: Yes Conscious sedation: Yes Pre-procedure NV exam: Yes - Normal Post-procedure NV exam: Yes Post-reduction x-ray: Joint reduced, No fracture seen Reduction attempts: 2 Complications: No Notes: 12/31/16 23:23 Patient was initially given propofol 100 mg with good sedation. Her joints seem to reduce using a modified Octavio method. As she became awake she was developing shoulder spasms and it appeared to dislocate again. She was re- sedated with propofol 100 mg again with good sedation and traction countertraction was applied with a palpable sensation of reduction. She was neurovascularly intact distally afterwards. A shoulder immobilizer was placed. She was having quite a bit of discomfort but felt that the shoulder was relocated. She has seen a orthopedist here in [facility] so she will follow-up with them. She has had 3 prior shoulder surgeries for this. She will also follow-up regarding her back pain. Instructed her to use NSAIDs in addition to the pain medication we have provided her. She voices understanding of discharge instructions. Discharge - Discharge Clinical Impression: Dislocation of right shoulder joint, Low back pain Condition: Good Disposition: HOME, SELF-CARE Instructions: Oral Narcotic Medication ([facility]), Shoulder Dislocation ([facility]) Additional Instructions: Maintain shoulder immobilizer. Call in morning to arrange follow-up with your orthopedist or the provided one. Return for any problem or concern. Prescriptions: Hydrocodone/Acetaminophen [[place] 5-325 mg Tablet] 1 tab PO Q4HP PRN #14 tablet PRN Reason: For Pain Referrals: JAYE CHAVARRIA DO [ACTIVE STAFF] - Follow up as needed
[2016-12-31] MEDS ORDERED: NORMAL SALINE 500 ML IV ONE (19:34)
[2016-12-31] MEDS ORDERED: ONDANSETRON HCL INJ/PF 4 MG/2 ML SDV IV ONE (19:34)
[2016-12-31] MEDS ORDERED: HYDROMORPHONE HCL INJ/PF 2 MG/ML AMPULE IV ONE ×2 (19:34→23:05)
[2016-12-31] MEDS ORDERED: PROPOFOL INJ 200 MG/20 ML VIAL IV ONE (19:36)
--- NOTE | 2016-12-31 20:49 | RADIOLOGY REPORT (SQ) ---
EXAM DESCRIPTION: L SPINE WHOLE COMPLETED DATE/TIME: 12/31/2016 8:37 pm REASON FOR STUDY: Trauma with pain COMPARISON: None. NUMBER OF VIEWS: Five views including obliques. TECHNIQUE: AP, lateral, oblique, and sacral radiographic images acquired of the lumbar spine. LIMITATIONS: None. FINDINGS: MINERALIZATION: Normal. SEGMENTATION: Normal. No transitional anatomy. ALIGNMENT: Normal. VERTEBRAE: Maintained height. No fracture or worrisome bone lesion. DISCS: Preserved height. No significant osteophytes or end plate irregularity. POSTERIOR ELEMENTS: Pedicles and facets are intact. No pars defect or posterior arch defects. HARDWARE: None in the spine. PARASPINAL SOFT TISSUES: Normal. PELVIS: Intact as visualized. No fractures or worrisome bone lesions. SI joints intact. OTHER: No other significant finding. IMPRESSION: Age-appropriate exam. TECHNICAL DOCUMENTATION: JOB ID: [id number] [employer]- All Rights Reserved
--- NOTE | 2016-12-31 20:50 | RADIOLOGY REPORT (SQ) ---
EXAM DESCRIPTION: SHOULDER RIGHT 2 OR MORE VIEWS COMPLETED DATE/TIME: 12/31/2016 8:37 pm REASON FOR STUDY: Trauma with pain COMPARISON: 12/15/2016 NUMBER OF VIEWS: Three views. TECHNIQUE: Internal rotation, external rotation, and Y view images acquired of the right shoulder. LIMITATIONS: None. FINDINGS: MINERALIZATION: Normal. BONES: Anterior-inferior glenohumeral dislocation. No acute fracture. 2 glenoid bone screws appear intact. Moderate arthrosis. . JOINTS: No dislocation. VISUALIZED LUNGS AND RIBS: No pneumothorax. No rib fracture. SOFT TISSUES: No radiopaque foreign body. OTHER: No other significant finding. IMPRESSION: Anterior-inferior glenohumeral dislocation. No acute fracture. TECHNICAL DOCUMENTATION: JOB ID: [id number] [employer]- All Rights Reserved
--- NOTE | 2016-12-31 22:56 | RADIOLOGY REPORT (SQ) ---
EXAM DESCRIPTION: SHOULDER RIGHT 1 VIEW COMPLETED DATE/TIME: 12/31/2016 10:45 pm REASON FOR STUDY: POST REDUCTION COMPARISON: Earlier exam same date NUMBER OF VIEWS: 1 TECHNIQUE: Frontal image acquired of the right shoulder. LIMITATIONS: None. FINDINGS: On this single frontal image the humeral head overlies the region of the glenoid suggestin g relocation of the glenohumeral relationship. No fracture identified. OTHER: No other significant finding. IMPRESSION: On this single frontal image the humeral head overlies the region of the glenoid suggest ing relocation of the glenohumeral relationship. No fracture identified. TECHNICAL DOCUMENTATION: JOB ID: [id number] [employer]- All Rights Reserved
[2016-12-31 23:37] VITALS: BP 156/99
== END 2016-12-31 23:47 | disposition home or self-care (01) ==
LOC: ER 19:04
PROC: 0RSJXZZ Reposition Right Shoulder Joint, External Approach (ICD-10-PCS; principal; 2016-12-31)
DX: M24.411 Recurrent dislocation, right shoulder (principal); M25.511 Pain in right shoulder; M54.5 Low back pain; W18.39XA Other fall on same level, initial encounter; Z98.890 Other specified postprocedural states; Z88.8 Allergy status to other drugs, medicaments and biological substances; I10 Essential (primary) hypertension
CPT/HCPCS: 96376; 99283; 96361; 99152; 96374; 96375; 72110; 73020; 73030; 23650; L3650; J1170; J2405; J7040; J2704

== ENCOUNTER 2017-01-25 16:03 | Emergency (ER) | payer OTHER, MEDICAID ==
--- NOTE | 2017-01-25 16:34 | ER Document Report ---
ED General - General Mode of Arrival: Medic Information source: Patient TRAVEL OUTSIDE OF THE U.S[place] IN LAST 30 DAYS: No - HPI Onset: Just prior to arrival Similar symptoms previously: Yes <SUZANNA ARAIZA - Last Filed: 01/25/17 23:49> <FLORECITA DUONG - Last Filed: 01/26/17 00:09> - General Stated Complaint: RIGHT SHOULDER PAIN Time Seen by Provider: 01/25/17 16:08 Notes: Patient is a 31-year-old female with a complicated past medical history who presents to the emergency department today with complaints of a seizure prior to arrival. Patient has a history of pseudotumor cerebri with previous FRONT END SOFTWARE ENGINEER shunt placed at [facility] in 2004 that was unsuccessful. In 2013 the patient was treated in [place] at [facility] under neurosurgeon Dr. Rodriguez and she had a sigmoid sinus stent was placed which did relieve her symptoms. Patient states the stent has not been working correctly and she has been having seizures every few weeks because of the shunt malfunction. Patient is then seen in the ER secondary to the seizure and has therapeutic lumbar punctures to relieve the pressure in her head. Patient states that ultimately, she needs to go back to [place] to have this revised but she does not have enough money to get there. Patient complains of right shoulder pain that she states is consistent with her previous right shoulder dislocations after a seizure. Patient states she felt dizzy prior to her seizure today. Patient states other than having a slight nosebleed, her presentation today is consistent with her previous seizures and shoulder dislocations. (SUZANNA ARAIZA ) - Related Data Allergies/Adverse Reactions: rocuronium Allergy (Severe, Verified 12/18/16 18:25) Cardiac arrest clonidine [Clonidine] Allergy (Verified 12/18/16 18:25) droperidol Allergy (Verified 01/25/17 17:06) etomidate [Etomidate] Allergy (Verified 12/18/16 18:25) lisinopril Allergy (Verified 12/18/16 18:25) Facial swelling metoclopramide HCl [From Reglan] Allergy (Verified 12/18/16 18:25) Past Medical History - General Information source: Patient, [facility] Records - Social History Smoking Status: Current Some Day Smoker Cigarette use (# per day): Yes Frequency of alcohol use: Occasional Drug Abuse: None Lives with: Family Family History: Reviewed & Not Pertinent - Past Medical History Cardiac Medical History: Reports: Hx Hypertension Neurological Medical History: Reports: Hx Seizures Renal/ Medical History: Reports: Hx Kidney Stones Past Surgical History: Reports: Hx Section, Hx Neurologic Surgery - intercranial shunt, Hx Orthopedic Surgery - Patient is status post a right Bankart repair in [facility] - Immunizations Hx Diphtheria, Pertussis, Tetanus Vaccination: Yes <SUZANNA ARAIZA - Last Filed: 01/25/17 23:49> Review of Systems - Review of Systems Constitutional: No symptoms reported EENT: No symptoms reported Cardiovascular: No symptoms reported Respiratory: No symptoms reported Gastrointestinal: No symptoms reported Genitourinary: No symptoms reported Female Genitourinary: No symptoms reported Musculoskeletal: See HPI, Joint pain - right shoulder, Deformity - right shoulder Skin: No symptoms reported Hematologic/Lymphatic: No symptoms reported Neurological/Psychological: See HPI, Seizure -: Yes All other systems reviewed and negative <SUAZNNA ARAIZA - Last Filed: 01/25/17 23:49> Physical Exam <SUZANNA ARAIZA - Last Filed: 01/25/17 23:49> <FLORECITA DUONG - Last Filed: 01/26/17 00:09> - Vital signs Vitals: Resp BP 12 149/82 H 01/25/17 16:21 01/25/17 16:21 - Notes Notes: PHYSICAL EXAM GENERAL: Alert, interacts well. Appears uncomfortable secondary to pain. HEAD: Normocephalic, atraumatic. EYES: Pupils equal, round, and reactive to light. Extraocular movements intact. ENT: Oral mucosa moist, tongue midline. NECK: Full range of motion. Supple. Trachea midline. LUNGS: Clear to auscultation bilaterally, no wheezes, rales, or rhonchi. No respiratory distress. HEART: Regular rate and rhythm. No murmurs, gallops, or rubs. ABDOMEN: Obese, soft, non-tender. Non-distended. Bowel sounds present in all 4 quadrants. EXTREMITIES: Deformity to right shoulder consistent with anterior dislocation, surgical scars over right shoulder consistent with history. Moves other 3 extremities spontaneously. 5/5 strength in the right hand, sensation to right deltoid is intact. No edema, radial and dorsalis pedis pulses 2/4 bilaterally. No cyanosis. NEUROLOGICAL: Alert and oriented x3. Normal speech. PSYCH: Normal affect, normal mood. SKIN: Warm, dry, normal turgor. No rashes or lesions noted. (SUZANNA ARAIZA) Course <SUZANNA ARAIZA - Last Filed: 01/25/17 23:49> <FLORECITA DUONG - Last Filed: 01/26/17 00:09> - Re-evaluation Re-evalutation: 01/25/17 16:45 Patient gave consent with mother at bedside for radiology to perform a fluoroscopic lumbar puncture and for the reduction of right shoulder prior to being given pain or sedating medications. 01/25/17 20:45 15 mL of CSF drawn off during lumbar puncture (SUZANNA ARAIZA) 01/25/17 22:42 Lumbar puncture was performed by the PA in the radiology department, 15 mL of spinal fluid was drained, per protocol this was sent to the lab, it was unremarkable, no evidence of blood or infection. No complications. Initial shoulder x-ray showed an anterior shoulder dislocation without fracture, there are glenoid screws in place. Postreduction film was obtained and revealed a grossly normal glenohumeral joint. This was a difficult reduction, it did take multiple attempts, there are 3 x- rays documenting the progress after each attempt. As the patient is known to be very difficult peripheral stick we did perform the sedation with intramuscular ketamine after we failed 2 attempts to get IVs. Patient was initially given 300 mg of ketamine IM and then another 150 mg of ketamine IM after the second attempt. Reduction was eventually successful however when she woke up she started having some spasming of the muscles so she was given some Valium as a muscle relaxer. Patient is now going to be discharged home, once again encouraged to follow-up with the surgeon who performed the FRONT END SOFTWARE ENGINEER shunt in [place]. Encouraged also to follow-up with orthopedic surgery as an outpatient for further repair of the shoulder. Patient does have her Diamox and Topamax. She is taking it as instructed. (FLORECITA DUONG) - Vital Signs Vital signs: Temp Pulse Resp BP Pulse Ox 98.7 F 118 H 19 137/96 H 99 01/25/17 16:59 01/25/17 22:15 01/25/17 23:01 01/25/17 23:00 01/25/17 23:01 Procedures - Conscious Sedation Conscious sedation Time started: 20:50 Time completed: 21:45 Consent obtained: Yes Indication: right shoulder dislocation Last meal: 01/25/17, breakfast Prior complications: General anesthesia Pt with a mild systemic disease.: P2. - ASA Classification. Airway Evaluation: Normal anatomy Mallampati Classification: Class 2 Used during procedure: Suction available, Pulse ox on pt., pvc monitor on pt.. No: IV access obtained Medications administered: Ketamine Reversal agents: None I personally performed/intraservice time: Sedation, Procedure, 46-60 min Complications: No - Joint Reduction/Fracture Care Right Shoulder Time completed: 20:50 Consent obtained: Yes Conscious sedation: Yes Pre-procedure NV exam: Yes Fracture: Other - no fracture, recurrent shoulder dislocation Manipulation comment: difficult, required 3 attempts, clunk finally felt, traction-countertractio Post-procedure NV exam: Yes Post-reduction x-ray: Joint reduced, No fracture seen Reduction attempts: 3 Complications: No <FLORECITA DUONG - Last Filed: 01/26/17 00:09> Discharge <SUZANNA ARAIZA - Last Filed: 01/25/17 23:49> <FLORECITA DUONG - Last Filed: 01/26/17 00:09> - Discharge Clinical Impression: Recurrent anterior dislocation of right shoulder, Seizure, Pseudotumor cerebri , Situational hypertension Condition: Stable Disposition: HOME, SELF-CARE Additional Instructions: It is very important that you follow-up with both orthopedic surgery as an outpatient and neurosurgery as an outpatient. You will continue to have seizures as the spinal fluid builds up in your brain until you have your shunt fixed. Your shoulder will continue to dislocate until you have your shoulder fixed. You may wish to consider following up with your primary care physician and discussing with them a plan to have regular spinal taps performed to drain fluid so that you do not have seizures until the shunt can be fixed. They may wish to do these every 2-6 weeks. Please discuss this further with your primary care physician. Samir Attestation: 01/26/17 00:09 I personally performed the services described in the documentation, reviewed and edited the documentation which was dictated to the scribe in my presence, and it accurately records my words and actions. (FLORECITA DUONG) Stephibe Documentation - Scribe Written by Samir:: Samir Young, 01/25/2017 1810 acting as scribe for :: Joie <SUZANNA ARAIZA - Last Filed: 01/25/17 23:49>
[2017-01-25] MEDS ORDERED: MORPHINE SULFATE 10 MG/ML INJ IM ONE ×2 (16:36→18:28)
[2017-01-25 18:48] LABS: PROTHROMBIN TIME 13.3 SEC (11.4-15.4)
--- NOTE | 2017-01-25 19:44 | RADIOLOGY REPORT (SQ) ---
EXAM DESCRIPTION: LUMBAR PUNCTURE COMPLETED DATE/TIME: 01/25/2017 7:33 pm REASON FOR STUDY: pseudotumor, shunt malfunction, seizure COMPARISON: None. FLUOROSCOPY TIME: 12 seconds For images saved to PACS. TECHNIQUE: Fluoroscopic guided lumbar puncture. LIMITATIONS: None. PROCEDURE: After written consent and assessment were obtained, the patient was brought into the fluo roscopy room and placed prone on the table. The patient's lower back was prepped in a sterile fashio n and an entry site was selected under live fluoroscopic guidance. The entry site was anesthetized wi th 1% lidocaine. A 22 gauge needle was advanced through the skin and into the thecal sac at the level of L3-Lfor. After approximately 15 ml was drained, the needle was removed and a sterile bandage was placed of the site. Specimens were sent to the lab for testing. A fluoroscopic spot image was saved to PACS confirming level access. FINDINGS: Clear CSF IMPRESSION: Lumbar puncture under fluoroscopy. No immediate complication. COMMENT: Patient medication list reviewed: Yes- Quality ID# [id number]:Eligible professional attests to doc umenting in the medical record they obtained, updated, or reviewed the patient's current medications. . Quality ID 145: Final reports for procedures using fluoroscopy that document radiation exposure lexie brayden, or exposure time and number of fluorographic images (if radiation exposure indices are not avail able) TECHNICAL DOCUMENTATION: JOB ID: [id number] [employer]- All Rights Reserved
[2017-01-25 19:54] LABS: GLUCOSE,CSF 53 mg/dL (40-70)
--- NOTE | 2017-01-25 20:27 | RADIOLOGY REPORT (SQ) ---
EXAM DESCRIPTION: SHOULDER RIGHT 2 OR MORE VIEWS COMPLETED DATE/TIME: 01/25/2017 8:05 pm REASON FOR STUDY: right shoulder dislocation COMPARISON: 12/31/2016, 12/15/2016 NUMBER OF VIEWS: Two views TECHNIQUE: AP and Y-view images acquired of the right shoulder. LIMITATIONS: None. FINDINGS: Anterior glenohumeral dislocation. Bone screws along the anterior glenoid from bony Bankart repair. No acute fracture. IMPRESSION: Anterior glenohumeral dislocation TECHNICAL DOCUMENTATION: JOB ID: [id number] [employer]- All Rights Reserved
[2017-01-25] MEDS ORDERED: KETAMINE HCL INJ 500 MG/10 ML VIAL IM ONE ×2 (20:35→21:37)
[2017-01-25 20:36] LABS: APPEARANCE ALL TUBES CLEAR; APPEARANCE TUBE 1 CLEAR; APPEARANCE TUBE 2 CLEAR; APPEARANCE TUBE 3 CLEAR; RBC AVERAGE 2.5; RBC DILUENT USED NONE USED; RBC SIDE 1 2; RBC SIDE 2 3
[2017-01-25 20:37] LABS: RBC DILUTION FACTOR 1; TOTAL RBC SQUARES COUNTED 225
[2017-01-25 20:38] LABS: APPEARANCE ALL TUBES CLEAR; APPEARANCE TUBE 1 CLEAR; APPEARANCE TUBE 2 CLEAR; APPEARANCE TUBE 3 CLEAR; WHITE BLOOD CELL,CSF 1 /uL (0-5)
[2017-01-25 20:40] LABS: RBC AVERAGE 1.5; RBC SIDE 1 1; RBC SIDE 2 2
[2017-01-25 20:41] LABS: RBC DILUENT USED NONE USED; RBC DILUTION FACTOR 1; TOTAL RBC SQUARES COUNTED 225
[2017-01-25 20:42] LABS: WHITE BLOOD CELL,CSF 1 /uL (0-5)
[2017-01-25] MEDS ORDERED: KETAMINE HCL INJ 500 MG/10 ML VIAL ONE (21:30)
--- NOTE | 2017-01-25 21:51 | RADIOLOGY REPORT (SQ) ---
EXAM DESCRIPTION: SHOULDER RIGHT 1 VIEW COMPLETED DATE/TIME: 01/25/2017 9:40 pm REASON FOR STUDY: portable post reduction COMPARISON: Multiple previous NUMBER OF VIEWS: Two views TECHNIQUE: AP neutral and internal rotation images acquired of the right shoulder. LIMITATIONS: None. FINDINGS: MINERALIZATION: Normal. BONES: No acute fracture or dislocation. Screws along the anterior right bony glenoid from old Banka rt repair. JOINTS: No glenohumeral dislocation. VISUALIZED LUNGS AND RIBS: No pneumothorax. No rib fracture. SOFT TISSUES: No radiopaque foreign body. OTHER: No other significant finding. IMPRESSION: Grossly normal glenohumeral joint alignment TECHNICAL DOCUMENTATION: JOB ID: [id number] [employer]- All Rights Reserved
[2017-01-25] MEDS ORDERED: DIAZEPAM INJ 10 MG/2 ML DISP.SYRIN IM ONE (22:22)
[2017-01-26 00:57] VITALS: BP 136/90
== END 2017-01-26 01:00 | disposition home or self-care (01) ==
LOC: ER 16:03
PROC: 0RSJXZZ Reposition Right Shoulder Joint, External Approach (ICD-10-PCS; principal; 2017-01-25)
DX: M24.411 Recurrent dislocation, right shoulder (principal); G93.2 Benign intracranial hypertension; I10 Essential (primary) hypertension; M25.511 Pain in right shoulder; R42 Dizziness and giddiness; F17.210 Nicotine dependence, cigarettes, uncomplicated
CPT/HCPCS: 99285; 96372; 99153; 99152; 36415; 87070; 87205; 85610; 89050; 82945; 84157; 73020; 73030; 77002; 62270; 23650; L3650; J3360; J3490; J2270

== ENCOUNTER 2017-02-18 17:05 | Emergency (ER) | payer OTHER, MEDICAID ==
--- NOTE | 2017-02-18 17:51 | ER Document Report ---
ED General - General Chief Complaint: Seizure Stated Complaint: SEIZURES Time Seen by Provider: 02/18/17 17:09 Mode of Arrival: Medic Information source: Patient, [facility] Records Notes: 31-year-old female history of pseudotumor cerebri presents with seizure. Family notes this occurs when her fluid backs up. Requiring her to have a lumbar puncture. Patient has been here multiple times for similar episode. When she sees that she also dislocates her right shoulder which appears dislocated today TRAVEL OUTSIDE OF THE [place] IN LAST 30 DAYS: No - HPI Onset: Just prior to arrival Onset/Duration: Sudden Quality of pain: Achy Severity: Mild Pain Level: 1 Associated symptoms: Other Exacerbated by: Denies Relieved by: Denies Similar symptoms previously: Yes Recently seen / treated by doctor: Yes - Related Data Allergies/Adverse Reactions: rocuronium Allergy (Severe, Verified 02/18/17 17:29) Cardiac arrest clonidine [Clonidine] Allergy (Verified 02/18/17 17:29) droperidol Allergy (Verified 02/18/17 17:29) etomidate [Etomidate] Allergy (Verified 02/18/17 17:29) lisinopril Allergy (Verified 02/18/17 17:29) Facial swelling metoclopramide HCl [From Reglan] Allergy (Verified 02/18/17 17:29) Home Medications: Current Home Medications Acetazolamide [Diamox 250 mg Tab] 250 mg PO Q12 02/18/17 [History] Topiramate 25 mg PO Q12 02/18/17 [History] Past Medical History - Social History Smoking Status: Never Smoker Cigarette use (# per day): No Chew tobacco use (# tins/day): No Smoking Education Provided: No Frequency of alcohol use: None Drug Abuse: None Family History: Reviewed & Not Pertinent Patient has suicidal ideation: No Patient has homicidal ideation: No - Past Medical History Cardiac Medical History: Reports: Hx Hypertension Neurological Medical History: Reports: Hx Seizures Renal/ Medical History: Reports: Hx Kidney Stones. Denies: Hx Peritoneal Dialysis Past Surgical History: Reports: Hx Section, Hx Neurologic Surgery - intercranial shunt, Hx Orthopedic Surgery - Patient is status post a right Bankart repair in [facility] - Immunizations Hx Diphtheria, Pertussis, Tetanus Vaccination: Yes Review of Systems - Review of Systems Notes: REVIEW OF SYSTEMS: CONSTITUTIONAL : Denies fever, chills, or sweats. Denies recent illness. EENT: Denies eye, ear, throat, or mouth pain or symptoms. Denies nasal or sinus congestion or discharge. Denies throat, tongue, or mouth swelling or difficulty swallowing. CARDIOVASCULAR: Denies chest pain. Denies palpitations or racing or irregular heart beat. Denies ankle edema. RESPIRATORY: Denies cough, cold, or chest congestion. Denies shortness of breath, difficulty breathing, or wheezing. GASTROINTESTINAL: Denies abdominal pain or distention. Denies nausea, vomiting , or diarrhea. Denies blood in vomitus, stools, or per rectum. Denies black, tarry stools. Denies constipation. GENITOURINARY: Denies difficulty urinating, painful urination, burning, frequency, blood in urine, or discharge. FEMALE GENITOURINARY: Denies vaginal bleeding, heavy or abnormal periods, irregular periods. Denies vaginal discharge or odor. MUSCULOSKELETAL: Admits to right shoulder pain SKIN: Denies rash, lesions or sores. HEMATOLOGIC : Denies easy bruising or bleeding. LYMPHATIC: Denies swollen, enlarged glands. NEUROLOGICAL: Admits to seizure PSYCHIATRIC: Denies anxiety or stress. Denies depression, suicidal ideation, or homicidal ideation. ALL OTHER SYSTEMS REVIEWED AND NEGATIVE. PHYSICAL EXAMINATION: GENERAL: Well-appearing, well-nourished and in no acute distress. HEAD: Atraumatic, normocephalic. EYES: Pupils equal round and reactive to light, extraocular movements intact, conjunctiva are normal. ENT: Nares patent, oropharynx clear without exudates. Moist mucous membranes. NECK: Normal range of motion, supple without lymphadenopathy LUNGS: Breath sounds clear to auscultation bilaterally and equal. No wheezes rales or rhonchi. HEART: Regular rate and rhythm without murmurs ABDOMEN: Soft, nontender, nondistended abdomen. No guarding, no rebound. No masses appreciated. Female : deferred Musculoskeletal: Anterior dislocation of the right shoulder NEUROLOGICAL: Cranial nerves grossly intact. Normal speech, normal gait. Normal sensory, motor exams PSYCH: Normal mood, normal affect. SKIN: Warm, Dry, normal turgor, no rashes or lesions noted. Dictation was performed using [employer] voice recognition software Physical Exam - Vital signs Vitals: Temp Pulse Resp BP Pulse Ox 98.1 F 96 16 154/100 H 99 02/18/17 17:22 02/18/17 17:22 02/18/17 17:22 02/18/17 17:22 02/18/17 17:22 Course - Re-evaluation Re-evalutation: 02/18/17 18:07 IV access was likely obtained, I have put an order for lumbar puncture to be performed to relieve this pressure this appears to be a Band-Aid procedure as the patient continues to come back 02/18/17 21:57 While having a lumbar puncture performed on the radiology, the reduced shoulder was again dislocated I will have the resedate the patient 02/18/17 22:40 Patient shoulder was again reduced 02/18/17 22:41 Appears 34 cc of cerebrospinal fluid was removed Patient has also follow-up and will be given neurology follow-up - Vital Signs Vital signs: Temp Pulse Resp BP Pulse Ox 98.1 F 101 H 16 155/93 H 99 02/18/17 17:22 02/18/17 22:25 02/18/17 23:31 02/18/17 23:30 02/18/17 23:31 Procedures - Conscious Sedation Conscious sedation Time started: 20:15 Time completed: 20:45 Consent obtained: Yes Prior complications: Procedural sedation Pt with a mild systemic disease.: P2. - ASA Classification. Airway Evaluation: Normal anatomy Mallampati Classification: Class 2 Used during procedure: Suction available, IV access obtained Medications administered: Ketamine, Diprivan Reversal agents: None I personally performed/intraservice time: Sedation, Procedure, 30 min or less Complications: No conscious sedation second reduction Time started: 22:20 Time completed: 22:30 Consent obtained: Yes Indication: reduction of shoulder Prior complications: Procedural sedation Pt with a mild systemic disease.: P2. - ASA Classification. Airway Evaluation: Normal anatomy Mallampati Classification: Class 2 Used during procedure: Suction available, IV access obtained, Pulse ox on pt., fitness leader on pt. Medications administered: Ketamine, Diprivan Reversal agents: None I personally performed/intraservice time: Sedation, Procedure, 30 min or less Complications: No - Immobilization Right Shoulder Time completed: 20:45 Pre-Proc Neuro Vasc Exam: Normal Immobilizer type: Shoulder immobilizer Performed by: Provider Post-Proc Neuro Vasc Exam: Normal Alignment checked and good: Yes - Joint Reduction/Fracture Care Right Shoulder Time completed: 20:35 Consent obtained: Yes Conscious sedation: Yes Pre-procedure NV exam: Yes Fracture: Other Post-procedure NV exam: Yes Post-reduction x-ray: Joint reduced Complications: Yes - Ultrasound/Bedside Ultrasound/Bedside Time completed: 20:35 - u/s guided iv left antecubital 20 g Discharge - Discharge Clinical Impression: Seizure, Pseudotumor cerebri Shoulder dislocation Qualifiers: Encounter type: initial encounter Laterality: right Qualified Code(s): S43.004A - Unspecified dislocation of right shoulder joint, initial encounter Condition: Stable Disposition: HOME, SELF-CARE Instructions: Shoulder Dislocation ([facility]), Sling as Treatment ([facility]) Prescriptions: Oxycodone HCl/Acetaminophen [Percocet 5-325 mg Tablet] 1 - 2 tab PO Q4H PRN #15 tablet PRN Reason: Referrals: ALLYSON REED MD [ACTIVE STAFF] - Follow up tomorrow
[2017-02-18] MEDS ORDERED: OXYCODONE-ACETAMINOPHEN 5-325 MG TABLET PO ONE (18:08)
--- NOTE | 2017-02-18 18:51 | RADIOLOGY REPORT (SQ) ---
EXAM DESCRIPTION: SHOULDER RIGHT 2 OR MORE VIEWS COMPLETED DATE/TIME: 02/18/2017 6:33 pm REASON FOR STUDY: dislocation COMPARISON: 01/25/2017 NUMBER OF VIEWS: Two views. TECHNIQUE: Internal rotation, and Y view images acquired of the right shoulder. LIMITATIONS: None. FINDINGS: MINERALIZATION: Normal. BONES: No acute fracture. Anterior glenohumeral Dislocation. Bone screws in the humeral head appear is intact. VISUALIZED LUNGS AND RIBS: No pneumothorax. No rib fracture. SOFT TISSUES: No radiopaque foreign body. OTHER: No other significant finding. IMPRESSION: Anterior glenohumeral Dislocation. TECHNICAL DOCUMENTATION: JOB ID: [id number] [employer]- All Rights Reserved
--- NOTE | 2017-02-18 18:55 | RADIOLOGY REPORT (SQ) ---
EXAM DESCRIPTION: CT HEAD WITHOUT COMPLETED DATE/TIME: 02/18/2017 6:44 pm REASON FOR STUDY: seizure COMPARISON: 12/15/2016 TECHNIQUE: Axial images acquired through the brain without intravenous contrast. Images reviewed wi th bone, brain and subdural windows. Images stored on PACS. All CT scanners at this facility use dose modulation, iterative reconstruction, and/or weight based d osing when appropriate to reduce radiation dose to as low as reasonably achievable (ALARA). [facility]: Dose Right [facility]: CareDose [facility]: Dose Right [facility]: Teradose 4D [facility]: Smart [employer] RADIATION DOSE: Up-to-date CT equipment and radiation dose reduction techniques were employed. CTDIv ol: 64.6 mGy. DLP: 1034 mGy-cm. mGy. LIMITATIONS: None. FINDINGS: VENTRICLES: Normal size and contour. CEREBRUM: No masses. No hemorrhage. No midline shift. No evidence for acute infarction. Normal gra y/white matter differentiation. No areas of low density in the white matter. CEREBELLUM: No masses. No hemorrhage. No alteration of density. No evidence for acute infarction. EXTRAAXIAL SPACES: No fluid collections. No masses. ORBITS AND GLOBE: No intra- or extraconal masses. Normal contour of globe without masses. CALVARIUM: No fracture. PARANASAL SINUSES: No fluid or mucosal thickening. SOFT TISSUES: No mass or hematoma. OTHER: There is a stent in the right transverse sinus. IMPRESSION: There is a stent in the right transverse sinus. There is no acute intracranial patholog y. There is no interval change. EVIDENCE OF ACUTE STROKE: NO. COMMENT: Quality ID # [id number]: Final reports with documentation of one or more dose reduction techniques (e.g., Automated exposure control, adjustment of the mA and/or kV according to patient size, use of iterative reconstruction technique) TECHNICAL DOCUMENTATION: JOB ID: [id number] [employer]- All Rights Reserved
[2017-02-18] MEDS ORDERED: KETAMINE HCL INJ 500 MG/10 ML VIAL IV ONE ×3 (19:50→23:57)
[2017-02-18] MEDS ORDERED: KETAMINE HCL INJ 500 MG/10 ML VIAL ONE (19:51)
[2017-02-18] MEDS ORDERED: PROPOFOL INJ 200 MG/20 ML VIAL IV ONE ×2 (19:51→23:54)
[2017-02-18] MEDS ORDERED: PROPOFOL 100 ML IV ONE (19:52)
--- NOTE | 2017-02-18 21:22 | RADIOLOGY REPORT (SQ) ---
EXAM DESCRIPTION: SHOULDER RIGHT 1 VIEW COMPLETED DATE/TIME: 02/18/2017 8:55 pm REASON FOR STUDY: post reduction COMPARISON: Earlier exam same date NUMBER OF VIEWS: One view. TECHNIQUE: Frontal images acquired of the right shoulder. LIMITATIONS: None. FINDINGS: The Previously seen anterior glenohumeral dislocation appears reduced. No acute fracture identified. OTHER: No other significant finding. IMPRESSION: The Previously seen anterior glenohumeral dislocation appears reduced. No acute fractur e identified. TECHNICAL DOCUMENTATION: JOB ID: [id number] [email or web address]- All Rights Reserved
--- NOTE | 2017-02-18 22:12 | RADIOLOGY REPORT (SQ) ---
EXAM DESCRIPTION: LUMBAR PUNCTURE COMPLETED DATE/TIME: 02/18/2017 10:02 pm REASON FOR STUDY: seizure COMPARISON: None. FLUOROSCOPY TIME: 10 seconds 1 images saved to PACS. TECHNIQUE: Fluoroscopic guided lumbar puncture. LIMITATIONS: None. PROCEDURE: After written consent and assessment were obtained, the patient was brought into the fluo roscopy room and placed prone on the table. The patient's lower back was prepped in a sterile fashio n and an entry site was selected under live fluoroscopic guidance. The entry site was anesthetized wi th 1% lidocaine. A 22 gauge needle was advanced through the skin and into the thecal sac at the level of L3-L4. After approximately 32 ml was drained, the needle was removed and a sterile bandage was pl aced of the site. Specimens were not sent to the lab for testing. A fluoroscopic spot image was haven ed to PACS confirming level access. Opening pressure 30 mm Hg. Closing pressure 21 mm Hg FINDINGS: Clear CSF IMPRESSION: Lumbar puncture under fluoroscopy. No immediate complication. COMMENT: Patient medication list reviewed: Yes- Quality ID# [id number]:Eligible professional attests to doc umenting in the medical record they obtained, updated, or reviewed the patient's current medications. . Quality ID 145: Final reports for procedures using fluoroscopy that document radiation exposure lexie brayden, or exposure time and number of fluorographic images (if radiation exposure indices are not avail able) TECHNICAL DOCUMENTATION: JOB ID: [id number] [employer]- All Rights Reserved
--- NOTE | 2017-02-18 22:48 | RADIOLOGY REPORT (SQ) ---
EXAM DESCRIPTION: SHOULDER RIGHT 1 VIEW COMPLETED DATE/TIME: 02/18/2017 10:05 pm REASON FOR STUDY: DISLOCATION COMPARISON: 02/18/2017, 2 exams. NUMBER OF VIEWS: Three views. TECHNIQUE: Frontal images acquired of the right shoulder. LIMITATIONS: AP view only. FINDINGS: MINERALIZATION: Normal. BONES: Hardware including 2 screw overlying the glenoid and linear sy overlying the right infraclavi cular space. No worrisome bone lesions. JOINTS: Possible recurrent anterior dislocation as estimated on a single view compared with prior exa m. VISUALIZED LUNGS AND RIBS: No pneumothorax. No rib fracture. SOFT TISSUES: No radiopaque foreign body. OTHER: No other significant finding. IMPRESSION: Recurrent anterior dislocation of the right glenohumeral joint estimated on frontal view only. TECHNICAL DOCUMENTATION: JOB ID: [id number] [employer]- All Rights Reserved
--- NOTE | 2017-02-18 22:52 | RADIOLOGY REPORT (SQ) ---
EXAM DESCRIPTION: SHOULDER RIGHT 1 VIEW COMPLETED DATE/TIME: 02/18/2017 10:34 pm REASON FOR STUDY: post reduction x2 COMPARISON: None. NUMBER OF VIEWS: One view. TECHNIQUE: Frontal images acquired of the right shoulder. LIMITATIONS: None. FINDINGS: MINERALIZATION: Normal. BONES: Postreduction few shows improved near anatomic alignment as estimated on frontal view only. 2 screw fixation overlies the glenoid. JOINTS: No dislocation. VISUALIZED LUNGS AND RIBS: No pneumothorax. No rib fracture. SOFT TISSUES: No radiopaque foreign body. OTHER: No other significant finding. IMPRESSION: Interval reduction with likely near anatomic alignment of the right glenohumeral joint a s estimated on frontal view only. TECHNICAL DOCUMENTATION: JOB ID: [id number] [employer]- All Rights Reserved
[2017-02-18] MEDS ORDERED: HYDROCODONE/ACETAMINOPHEN 5-325 MG 6 TAB/DSPK PO PRN ×2 (23:45→23:48)
[2017-02-19 00:40] VITALS: BP 174/114
--- NOTE | 2017-02-19 08:26 | RADIOLOGY REPORT (SQ) ---
EXAM DESCRIPTION: FLUORO/NEEDLE PLACEMENT/SPINE COMPLETE DATE/TIME: 02/18/2017 10:02 pm REASON FOR STUDY: SEIZURE FINDINGS: Please see combined report for performance of procedure and radiologic supervision and int erpretation. IMPRESSION: Please see combined report for performance of procedure and radiologic supervision and i nterpretation.
== END 2017-02-19 00:33 | disposition home or self-care (01) ==
LOC: ER 17:05
PROC: 0RSJXZZ Reposition Right Shoulder Joint, External Approach (ICD-10-PCS; principal; 2017-02-18)
DX: S43.004A Unspecified dislocation of right shoulder joint, initial encounter (principal); R56.9 Unspecified convulsions; G93.2 Benign intracranial hypertension; X58.XXXA Exposure to other specified factors, initial encounter; Z79.899 Other long term (current) drug therapy
CPT/HCPCS: 62270; 70450; 77003; 82962; 99153; 99285; 99152

== ENCOUNTER 2017-02-23 15:44 | Observation (INO) | payer OTHER, MEDICAID ==
--- NOTE | 2017-02-23 16:26 | ER Document Report ---
ED Extremity Problem, Upper - General Mode of Arrival: Medic Information source: Patient TRAVEL OUTSIDE OF THE [place] IN LAST 30 DAYS: No - HPI Patient complains to provider of: Injury, Pain, Right, Shoulder Onset: Just prior to arrival Where: Other - chiropractor Quality of pain: Sharp, Stabbing Severity of pain: Severe Pain Level: 5 <SUZANNA ARAIZA - Last Filed: 02/23/17 22:37> <LIU WAKEFIELD - Last Filed: 02/23/17 23:34> - General Stated Complaint: POSSIBLE SHOULDER DISLOCATION Time Seen by Provider: 02/23/17 16:09 Notes: Patient is a 31-year-old female who presents to the emergency department today with complaints of a right shoulder dislocation. Patient is well-known to this emergency department for frequent shoulder dislocations, typically during seizure activity. Patient states today she was at the chiropractor getting adjusted when during the adjustment the right shoulder became dislocated. Patient states the chiropractor attempted to reduce the shoulder but was unsuccessful. Patient states she usually receives ketamine and propofol for shoulder reduction. (SUZANNA ARAIZA) - Related Data Allergies/Adverse Reactions: rocuronium Allergy (Severe, Verified 02/18/17 17:29) Cardiac arrest clonidine [Clonidine] Allergy (Verified 02/18/17 17:29) droperidol Allergy (Verified 02/18/17 17:29) etomidate [Etomidate] Allergy (Verified 02/18/17 17:29) lisinopril Allergy (Verified 02/18/17 17:29) Facial swelling metoclopramide HCl [From Reglan] Allergy (Verified 02/18/17 17:29) Past Medical History - General Information source: Patient, [facility] Records - Social History Smoking Status: Never Smoker Cigarette use (# per day): No Frequency of alcohol use: Social Drug Abuse: None Lives with: Family Family History: Reviewed & Not Pertinent - Past Medical History Cardiac Medical History: Reports: Hx Hypertension Pulmonary Medical History: Reports: Hx Pneumonia Neurological Medical History: Reports: Hx Seizures Renal/ Medical History: Reports: Hx Kidney Stones Past Surgical History: Reports: Hx Section, Hx Neurologic Surgery - intercranial shunt, Hx Orthopedic Surgery - Patient is status post a right Bankart repair in [facility] - Immunizations Hx Diphtheria, Pertussis, Tetanus Vaccination: Yes <SUZANNA ARAIZA - Last Filed: 02/23/17 22:37> Review of Systems - Review of Systems Constitutional: No symptoms reported EENT: No symptoms reported Cardiovascular: No symptoms reported Respiratory: No symptoms reported Gastrointestinal: No symptoms reported Genitourinary: No symptoms reported Female Genitourinary: No symptoms reported Musculoskeletal: See HPI, Joint pain - right shoulder, Deformity - right shoulder Skin: No symptoms reported Hematologic/Lymphatic: No symptoms reported Neurological/Psychological: No symptoms reported -: Yes All other systems reviewed and negative <SUZANNA ARAIZA - Last Filed: 02/23/17 22:37> Physical Exam <SUZANNA ARAIZA - Last Filed: 02/23/17 22:37> <LIU WAKEFIELD - Last Filed: 02/23/17 23:34> - Vital signs Vitals: Pulse Resp BP Pulse Ox 85 17 175/122 H 100 02/23/17 16:36 02/23/17 16:36 02/23/17 16:36 02/23/17 16:36 - Notes Notes: Physical Exam: General: Alert, appears uncomfortable secondary to pain. HEENT: Normocephalic. Atraumatic. PERRL. Extraocular movements intact. Oropharynx clear. Neck: Supple. Non-tender. Respiratory: No respiratory distress. Clear and equal breath sounds bilaterally. Cardiovascular: Regular rate and rhythm. Abdominal: Normal Inspection. Non-tender. No distension. Normal Bowel Sounds. Back: Non-tender. No deformity or step off. Extremities: Upper extremities: Obvious deformity to right shoulder consistent with dislocation. Multiple healed scars to right shoulder consistent with surgical history. Lower extremities: Normal inspection. No edema. Normal ROM. Neurological: Normal cognition. AAOx4. Normal speech. Psychological: Normal affect. Normal Mood. Skin: Warm. Dry. Normal color. (SUZANNA ARAIZA) Course <JOSE GSUZANNA AN - Last Filed: 02/23/17 22:37> <LIU WAKEFIELD - Last Filed: 02/23/17 23:34> - Re-evaluation Re-evalutation: 02/23/17 Patient is a 31-year-old female who comes in with a dislocation of her right shoulder. This is happened multiple times in the past. Patient was given pain medication, fentanyl and morphine. Patient was sedated with ketamine and propofol. Patient's IV blew and noon was placed. Patient would fall asleep and would appear to be adequately sedated. When the joint was almost an, patient would wake up and move her arm. Attempted multiple times to get her shoulder back in place but it is still out of place. Have tried multiple techniques including traction countertraction, scapular manipulation. Let patient lay on her stomach and hang her arm over the side of the bed. Unable to reduce the joint. With the sedation, the patient became nauseated and was retching in the room. Discussed with Dr. Serrano who will take to the patient to the OR under general anesthesia for reduction. Patient is agreeable to this plan. (LIU WAKEFIELD) - Vital Signs Vital signs: Temp Pulse Resp BP Pulse Ox 111 H 20 140/102 H 99 02/23/17 19:38 02/23/17 22:36 02/23/17 22:36 02/23/17 22:36 Procedures - Conscious Sedation Conscious sedation Consent obtained: Yes Normal healthy pt.: P1. - ASA Classification Airway Evaluation: Large tongue Mallampati Classification: Class 2 Used during procedure: Suction available, IV access obtained, Pulse ox on pt., clinical pharmacy manager on pt. Medications administered: Ketamine, Diprivan Reversal agents: None I personally performed/intraservice time: Sedation, Procedure, 46-60 min Complications: Yes - Could not reduce shoulder, vomiting - Joint Reduction/Fracture Care Right Shoulder Consent obtained: Yes Conscious sedation: Yes Pre-procedure NV exam: Yes Manipulation comment: Attempted traction countertraction, scapular manipulation , raising arm Post-procedure NV exam: Yes Post-reduction x-ray: Joint not reduced Complications: Yes - Unable to reduce joint <LIU WAKEFIELD - Last Filed: 02/23/17 23:34> Discharge <SUZANNA ARAIZA - Last Filed: 02/23/17 22:37> - Discharge Admitting Provider: Zach Unit Admitted: Surgical Floor <LIU WAKEFIELD - Last Filed: 02/23/17 23:34> - Discharge Clinical Impression: Shoulder dislocation Qualifiers: Encounter type: subsequent encounter Laterality: right Qualified Code(s): S43.004D - Unspecified dislocation of right shoulder joint, subsequent encounter Condition: Stable Disposition: ADMITTED INPATIENT Scribe Attestation: 02/23/17 23:34 I personally performed the services described in the documentation, reviewed and edited the documentation which was dictated to the scribe in my presence, and it accurately records my words and actions. (LIU WAKEFIELD) Scribe Documentation - Scribe Written by Scribe:: Samir Young, 02/23/2017 1653 acting as scribe for :: Carrie <SUZANNA ARAIZA - Last Filed: 02/23/17 22:37>
[2017-02-23] MEDS ORDERED: FENTANYL CITRATE INJ/PF 100 MCG/2 ML AMPUL IV ONE (16:36)
[2017-02-23] MEDS ORDERED: KETAMINE HCL INJ 500 MG/10 ML VIAL IV ONE (16:36)
[2017-02-23] MEDS ORDERED: PROPOFOL INJ 200 MG/20 ML VIAL IV ONE (16:36)
[2017-02-23] MEDS ORDERED: NORMAL SALINE 1000 ML 1,000 ML IV ONE (16:37)
--- NOTE | 2017-02-23 17:02 | RADIOLOGY REPORT (SQ) ---
EXAM DESCRIPTION: SHOULDER RIGHT 2 OR MORE VIEWS COMPLETED DATE/TIME: 02/23/2017 4:32 pm REASON FOR STUDY: bed 8 +deformity dislocation COMPARISON: Right shoulder films 02/18/2017, 01/25/2017, 12/31/2016 NUMBER OF VIEWS: Two views. TECHNIQUE: AP and Y-view images acquired of the right shoulder. LIMITATIONS: Suboptimal patient positioning FINDINGS: There is an anterior glenohumeral dislocation at the right shoulder joint. Old screws along the anterior bony glenoid. Acromioclavicular joint intact. Right upper ribs intact IMPRESSION: Anterior glenohumeral dislocation of the right shoulder joint TECHNICAL DOCUMENTATION: JOB ID: [id number] [employer]- All Rights Reserved
[2017-02-23] MEDS ORDERED: MORPHINE SULFATE 10 MG/ML INJ ONE (17:54)
[2017-02-23] MEDS ORDERED: MORPHINE SULFATE 10 MG/ML INJ IV ONE ×2 (17:54→19:39)
[2017-02-23] MEDS ORDERED: ONDANSETRON HCL INJ/PF 4 MG/2 ML SDV ONE (19:02)
[2017-02-23] MEDS ORDERED: GLUCAGON,HUMAN RECOMB 1 MG INJ SUBCUT PRN (22:26)
[2017-02-23] MEDS ORDERED: DEXTROSE 50%-WATER 25 GM/50 ML DISP.SYRIN IV PRN ×2 (22:26)
[2017-02-23] MEDS ORDERED: DEXTROSE 40% GEL 15 GM TUBE PO PRN ×2 (22:26)
[2017-02-23] MEDS ORDERED: ONDANSETRON HCL INJ/PF 4 MG/2 ML SDV IV PRN (22:32)
[2017-02-23] MEDS ORDERED: OXYCODONE-ACETAMINOPHEN 5-325 MG TABLET PO ONE (22:33)
[2017-02-24] MEDS: MORPHINE SULFATE 10 MG/ML INJ IV PRN ×4 (02:24→20:57)
--- NOTE | 2017-02-24 07:52 | PDOC H&P ---
History of Present Illness Admission Date/PCP: 02/23/17 22:26 Patient complains of: Shoulder Dislocation History of Present Illness: JAYDA RAMEY is a 31 year old female Presented to the emergency room with right shoulder pain. Patient has history of multiple shoulder dislocations and earlier in the day while at the chiropractor they were manipulating her spine when she felt a pop into her right shoulder. Because she has had multiple dislocations she knew her shoulder was dislocated. Attempted reduction was performed by the chiropractor but unsuccessful. Patient also notes occasionally he is able to reduce the shoulder independently. Patient was then brought to the emergency room where radiographs confirmed dislocation and closed reduction was attempted under conscious sedation. Unfortunately were unable to obtain adequate reduction and patient began having retching and vomiting limiting there abilities to perform conscious sedation. And thus conscious sedation was aborted due to possible aspiration concerns. Currently patient states she continues to have extreme shoulder discomfort along with some tingling in her small finger. Detailing patient's previous history she has had 2 previous surgeries due to instability most recent one at [facility] but unfortunately she continues to have instability despite operative treatment. Past Medical History Cardiac Medical History: Reports: Hypertension Denies: Coronary Artery Disease, Myocardial Infarction Pulmonary Medical History: Reports: Pneumonia Denies: Asthma, Bronchitis, Chronic Obstructive Pulmonary Disease (COPD) Neurological Medical History: Reports: Seizures Musculoskeltal Medical History: Denies: Arthritis Psychiatric Medical History: Denies: Depression Hematology: Denies: Anemia Past Surgical History Past Surgical History: Reports: Section, Orthopedic Surgery - Patient is status post a right Bankart repair in [facility] Social History Lives with: Family Smoking Status: Former Smoker Frequency of Alcohol Use: Social Hx Recreational Drug Use: No Drugs: None Hx Prescription Drug Abuse: No Family History Family History: Reviewed & Not Pertinent Parental Family History Reviewed: No Children Family History Reviewed: No Sibling(s) Family History Reviewed.: No Medication/Allergy Allergies/Adverse Reactions: rocuronium Allergy (Severe, Verified 02/18/17 17:29) Cardiac arrest clonidine [Clonidine] Allergy (Verified 02/18/17 17:29) droperidol Allergy (Verified 02/18/17 17:29) etomidate [Etomidate] Allergy (Verified 02/18/17 17:29) lisinopril Allergy (Verified 02/18/17 17:29) Facial swelling metoclopramide HCl [From Reglan] Allergy (Verified 02/18/17 17:29) Review of Systems Constitutional: ABSENT: chills, fever(s), headache(s), weight gain, weight loss Eyes: ABSENT: visual disturbances Ears: ABSENT: hearing changes Cardiovascular: ABSENT: chest pain, dyspnea on exertion, edema, orthropnea, palpitations Respiratory: ABSENT: cough, hemoptysis Gastrointestinal: PRESENT: nausea, vomiting. ABSENT: abdominal pain, constipation, diarrhea, hematemesis, hematochezia Genitourinary: ABSENT: dysuria, hematuria Musculoskeletal: PRESENT: as per HPI Integumentary: ABSENT: rash, wounds Neurological: ABSENT: abnormal gait, abnormal speech, confusion, dizziness, focal weakness, syncope Psychiatric: ABSENT: anxiety, depression, homidical ideation, suicidal ideation Endocrine: ABSENT: cold intolerance, heat intolerance, menstrual abnormalities, polydipsia, polyuria Hematologic/Lymphatic: ABSENT: easy bleeding, easy bruising, lymphadenopathy Physical Exam Vital Signs: Temp Pulse Resp BP Pulse Ox 97.3 F 93 18 138/69 H 99 02/24/17 01:15 02/24/17 01:15 02/24/17 01:15 02/24/17 01:15 02/24/17 01:15 Intake & Output 02/23/17 02/24/17 02/25/17 06:59 06:59 06:59 Weight 103.2 kg General appearance: PRESENT: no acute distress, well-developed, well-nourished Head exam: PRESENT: atraumatic, normocephalic Eye exam: PRESENT: conjunctiva pink, EOMI, PERRLA. ABSENT: scleral icterus Ear exam: PRESENT: normal external ear exam Mouth exam: PRESENT: moist, tongue midline Neck exam: PRESENT: full ROM. ABSENT: carotid bruit, JVD, lymphadenopathy, thyromegaly Respiratory exam: PRESENT: unlabored Cardiovascular exam: PRESENT: RRR. ABSENT: diastolic murmur, rubs, systolic murmur Pulses: PRESENT: normal dorsalis pedis pul, +2 pedal pulses bilateral Vascular exam: PRESENT: normal capillary refill GI/Abdominal exam: PRESENT: normal bowel sounds, soft. ABSENT: distended, guarding, mass, organolmegaly, rebound, tenderness Rectal exam: PRESENT: deferred Musculoskeletal exam: PRESENT: other - Right shoulder: Previous surgical scar anteriorly. Notable deformity anteriorly. Unable to assess axillary nerve given patient's discomfort. Limited elbow flexion/extension secondary to discomfort. Patient able make full composite fist. DIP/PIP joints intact. Intact sensation to light touch throughout median ulnar nerve distribution. Hypoesthesia along the small finger. Neurological exam: PRESENT: alert, awake, oriented to person, oriented to place , oriented to time, oriented to situation, CN II-XII grossly intact. ABSENT: motor sensory deficit Psychiatric exam: PRESENT: appropriate affect, normal mood. ABSENT: homicidal ideation, suicidal ideation Skin exam: PRESENT: dry, intact, warm. ABSENT: cyanosis, rash Results Impressions: Shoulder X-Ray 02/23/17 00:00 IMPRESSION: Anterior glenohumeral dislocation of the right shoulder joint Status: Image reviewed by me - I have reviewed patient's radiographs which demonstrate anterior right shoulder dislocation. No evidence of fracture. Assessment & Plan - Diagnosis (1) Dislocation, shoulder, anterior Qualifiers: Encounter type: initial encounter Laterality: right Qualified Code(s): S43.014A - Anterior dislocation of right humerus, initial encounter Is this a current diagnosis for this admission?: Yes Plan: Patient has a known history of right shoulder instability with multiple dislocations. She has had surgical treatment in the past which was unsuccessful. Unfortunately given her vomiting issue in the emergency room conscious sedation could not be performed safely without risk of aspiration thus the decision was made to proceed with general anesthesia. I have discussed risks and benefits of the operative procedure with the patient including known recurrent instability, neurovascular injury and need for operative intervention. After discussing these risks and benefits of the joint decision was made to proceed with closed reduction right shoulder under conscious sedation.
[2017-02-24] MEDS: OXYCODONE-ACETAMINOPHEN 5-325 MG TABLET PO PRN ×2 (10:43→21:45)
[2017-02-24] MEDS ORDERED: MIDAZOLAM 2 MG/2 ML INJ ONE (17:30)
[2017-02-24] MEDS ORDERED: ONDANSETRON HCL INJ/PF 4 MG/2 ML SDV ONE (17:30)
[2017-02-24] MEDS ORDERED: PROPOFOL INJ 200 MG/20 ML VIAL IV ONE (17:30)
[2017-02-24] MEDS ORDERED: FENTANYL CITRATE INJ/PF 100 MCG/2 ML AMPUL ONE (17:30)
[2017-02-24] MEDS ORDERED: PROMETHAZINE HCL INJ 25 MG/1 ML VIAL IV PRN (17:34)
[2017-02-24] MEDS ORDERED: DIPHENHYDRAMINE HCL 50 MG/ML VIAL IV PRN (17:34)
[2017-02-24] MEDS ORDERED: MEPERIDINE HCL/PF INJ 25 MG/1 ML DISP.SYRIN IV PRN (17:34)
[2017-02-24] MEDS ORDERED: FENTANYL CITRATE INJ/PF 100 MCG/2 ML AMPUL IV PRN ×3 (17:34)
[2017-02-24] MEDS ORDERED: MORPHINE SULFATE 10 MG/ML INJ IV PRN (17:34)
--- NOTE | 2017-02-24 19:06 | Operative Report ---
Operative Report DATE OF SURGERY: 02/24/17 PREOPERATIVE DIAGNOSIS: Right Shoulder Dislocation POSTOPERATIVE DIAGNOSIS: Same OPERATION: Closed reduction right shoulder SURGEON: JAYE CHAVARRIA ANESTHESIA: Moderate Sedation COMPLICATIONS: None ESTIMATED BLOOD LOSS: None PROCEDURE: Indication for above procedure: JAYDA RAMEY is a 31 year old female Presented to the emergency room with right shoulder pain. Patient has history of multiple shoulder dislocations and earlier in the day while at the chiropractor they were manipulating her spine when she felt a pop into her right shoulder. Because she has had multiple dislocations she knew her shoulder was dislocated. Attempted reduction was performed by the chiropractor but unsuccessful. Patient also notes occasionally he is able to reduce the shoulder independently. Patient was then brought to the emergency room where radiographs confirmed dislocation and closed reduction was attempted under conscious sedation. Unfortunately were unable to obtain adequate reduction and patient began having retching and vomiting limiting there abilities to perform conscious sedation. And thus conscious sedation was aborted due to possible aspiration concerns. Currently patient states she continues to have extreme shoulder discomfort along with some tingling in her small finger. Detailing patient's previous history she has had 2 previous surgeries due to instability most recent one at [facility] but unfortunately she continues to have instability despite operative treatment. We discussed treatment options including operative closed reduction. Risks of the procedure were explained to the patient including fracture, recurrent instability or inability to adequately obtain closed reduction. After discussing these risks and benefits joint decision was made to proceed with closed reduction. Procedure detail: Patient was seen and evaluated in the preoperative holding area her right upper extremity was initialized and marked. She was then taken back to the operating room where she was placed under anesthesia. Prior to placement of anesthesia patient required central line placement by Dr. Abdi. Once anesthetized patient was transferred to the operating table. A surgical debriefing was performed no concerns were verbalized. We then proceeded with official timeout. Correct extremity, procedure were identified everybody was in agreement with this and no concerns were verbalized. Gentle traction and reduction was performed to the right shoulder in the glenohumeral dislocation was successfully reduced. Patient had notable laxity in the anterior in the anterior direction however I was able to externally rotate the shoulder to approximately 70 without dislocation. C-arm fluoroscopy was obtained confirming glenohumeral reduction no evidence of associated fracture was appreciated. Patient was placed in a sling. Patient was then transferred from the operating table to the operative stretcher. Reduction was maintained as per palpation. Patient was taken to the PACU in a stable position. Postoperative plan: Patient will follow up with primary orthopedic surgeon for definitive treatment.
[2017-02-24] MEDS: LORAZEPAM INJ 2 MG/1 ML VIAL ONE ×2 (19:14→19:20)
[2017-02-24] MEDS: FENTANYL CITRATE INJ/PF 100 MCG/2 ML AMPUL ONE ×2 (19:25→19:30)
--- NOTE | 2017-02-24 19:31 | Progress Note ---
Provider Note Provider Note: While in the PACU patient began coughing and retching complaining of nausea and possible vomiting. She immediately would spontaneously dislocate the shoulder anteriorly with muscle relaxation and active internal rotation and forward flexion patient was able to maintain reduction. Thus patient was placed in a sling immobilizer maintaining this reducible position. I have urged the importance of following up with her previous orthopedic surgeon for definitive treatment patient will likely require reconstructive procedure to maintain reduction.
--- NOTE | 2017-02-24 20:18 | RADIOLOGY REPORT (SQ) ---
EXAM DESCRIPTION: SHOULDER RIGHT 2 OR MORE VIEWS COMPLETED DATE/TIME: 02/24/2017 7:34 pm REASON FOR STUDY: POST OP; POST REDUCTION COMPARISON: 02/24/2016 and 02/24/2017 TECHNIQUE: Two views of the right shoulder post reduction. LIMITATIONS: None. FINDINGS: There has been interval reduction of the previously described anterior dislocation. No ev idence for fracture is seen. Orthopedic hardware is again identified. IMPRESSION: Interval reduction as noted above TECHNICAL DOCUMENTATION: JOB ID: [id number] [employer]- All Rights Reserved
[2017-02-24 23:10] VITALS: BP 143/97
--- NOTE | 2017-02-25 02:08 | RADIOLOGY REPORT (SQ) ---
EXAM DESCRIPTION: NO CHG FLUORO; SHOULDER RIGHT 1 VIEW COMPLETED DATE/TIME: 02/24/2017 7:37 pm REASON FOR STUDY: CR RT SHOULDER COMPARISON: Right shoulder x-ray 02/23/2017. FLUOROSCOPY TIME: 0.1 minutes. 2 images saved to PACS. TECHNIQUE: Intra-operative images acquired during surgical procedure to evaluate progress. NUMBER OF IMAGES: 2 LIMITATIONS: None. FINDINGS: Intraoperative fluoroscopic images demonstrate reduction of the previously described anter ior glenohumeral dislocation of the right shoulder joint. IMPRESSION: IMAGES OBTAINED DURING PROCEDURE. COMMENT: Quality ID [id number]: Final reports for procedures using fluoroscopy that document radiation exp osure indices, or exposure time and number of fluorographic images (if radiation exposure indices are not available) Please consult full operative report of the attending physician for description of the procedure. TECHNICAL DOCUMENTATION: JOB ID: [id number]- All Rights Reserved
--- NOTE | 2017-02-25 02:08 | RADIOLOGY REPORT (SQ) ---
EXAM DESCRIPTION: NO CHG FLUORO; SHOULDER RIGHT 1 VIEW COMPLETED DATE/TIME: 02/24/2017 7:37 pm REASON FOR STUDY: CR RT SHOULDER COMPARISON: Right shoulder x-ray 02/23/2017. FLUOROSCOPY TIME: 0.1 minutes. 2 images saved to PACS. TECHNIQUE: Intra-operative images acquired during surgical procedure to evaluate progress. NUMBER OF IMAGES: 2 LIMITATIONS: None. FINDINGS: Intraoperative fluoroscopic images demonstrate reduction of the previously described anter ior glenohumeral dislocation of the right shoulder joint. IMPRESSION: IMAGES OBTAINED DURING PROCEDURE. COMMENT: Quality ID [id number]: Final reports for procedures using fluoroscopy that document radiation exp osure indices, or exposure time and number of fluorographic images (if radiation exposure indices are not available) Please consult full operative report of the attending physician for description of the procedure. TECHNICAL DOCUMENTATION: JOB ID: [id number] 2010 [employer]- All Rights Reserved
--- NOTE | 2017-03-02 07:46 | PDOC DISCHARGE SUMMARY ---
General - Admit/Disc Date/PCP Admission Date/Primary Care Provider: 02/23/17 22:26 Discharge Date: 02/24/17 - Discharge Diagnosis (1) Dislocation, shoulder, anterior Is this a current diagnosis for this admission?: Yes - Additional Information Resuscitation Status: Full Code Discharge Diet: As Tolerated Discharge Activity: No Driving, No Lifting Over 10 Pounds, No Lifting/Push/ Pulling Home Medications: Acetazolamide [Diamox 250 mg Tab] 250 mg PO Q12 02/24/17 Oxycodone HCl/Acetaminophen [Percocet 5-325 mg Tablet] 1 - 2 tab PO ASDIR PRN # 30 tablet 02/24/17 Topiramate [Topamax 25 mg Tablet] 25 mg PO Q12 02/24/17 History of Present Illness History of Present Illness: JAYDA RAMEY is a 31 year old female Presented to the emergency room with right shoulder pain. Patient has history of multiple shoulder dislocations and earlier in the day while at the chiropractor they were manipulating her spine when she felt a pop into her right shoulder. Because she has had multiple dislocations she knew her shoulder was dislocated. Attempted reduction was performed by the chiropractor but unsuccessful. Patient also notes occasionally he is able to reduce the shoulder independently. Patient was then brought to the emergency room where radiographs confirmed dislocation and closed reduction was attempted under conscious sedation. Unfortunately were unable to obtain adequate reduction and patient began having retching and vomiting limiting there abilities to perform conscious sedation. And thus conscious sedation was aborted due to possible aspiration concerns. Currently patient states she continues to have extreme shoulder discomfort along with some tingling in her small finger. Detailing patient's previous history she has had 2 previous surgeries due to instability most recent one at [facility] but unfortunately she continues to have instability despite operative treatment. Hospital Course Hospital Course: Patient was admitted to the orthopedic service on 02/23/17 inability to reduce patient's right shoulder dislocation which became a chronic instability issue. He was taken to the operating room under conscious sedation right shoulder was relocated and confirmed with C-arm fluoroscopy. Under C-arm fluoroscopy range of motion was performed and shoulder remained relatively stable. However in the PACU patient began coughing intervention and subsequently dislocated the shoulder again. At that point once the patient was awakened I mobilized the shoulder and internal rotation and radiographs were obtained demonstrating glenohumeral reduction. At that point patient's pain control she was orthopedically stable for discharge to home. Patient is to follow-up with her current orthopedic surgeon for further evaluation and treatment as recommended. Patient has recurrent instability or pain she will follow-up in the emergency room for closed reduction. Physical Exam Vital Signs: Temp Pulse Resp BP Pulse Ox 98.5 F 88 19 137/99 H 98 02/24/17 22:34 02/24/17 22:34 02/24/17 22:34 02/24/17 22:34 02/24/17 22:34 General appearance: PRESENT: no acute distress, cooperative Head exam: PRESENT: atraumatic, normocephalic Respiratory exam: PRESENT: unlabored Musculoskeletal exam: PRESENT: other - Right shoulder: No evidence of deformity. Intact flexion extension of the digits. Patient did make full composite fist. EPL/FPL intact. Neurological exam: PRESENT: alert, altered, awake, oriented to person, oriented to place, oriented to time, oriented to situation Results Impressions: Fluoroscopy 02/24/17 00:00 IMPRESSION: IMAGES OBTAINED DURING PROCEDURE. Shoulder X-Ray 02/24/17 00:00 IMPRESSION: IMAGES OBTAINED DURING PROCEDURE. Plan Discharge Plan: Patient is to follow-up with her current orthopedic surgeon for further evaluation and treatment as per the recommendations. Patient is continue the sling at all times. Patient has recurrent instability she should return to emergency room for repeat closed reduction. Patient was read above instructions and they stated that she seems and was medically stable for discharge to home.
== END 2017-02-24 22:35 | disposition home or self-care (01) ==
LOC: ER 15:44 → UNDOADMOB 21:48 → INTOOBSV 21:48 → EH 21:48 → 4W 02-24 00:59
PROVIDERS: ATTEND Orthopaedic Surgery
PROC: 0RSJXZZ Reposition Right Shoulder Joint, External Approach (ICD-10-PCS; principal; 2017-02-23)
PROC: 0RSJXZZ Reposition Right Shoulder Joint, External Approach (ICD-10-PCS; 2017-02-23)
PROC: 05HN33Z Insertion of Infusion Device into Left Internal Jugular Vein, Percutaneous Approach (ICD-10-PCS; 2017-02-24)
DX: S43.014A Anterior dislocation of right humerus, initial encounter (principal); X58.XXXA Exposure to other specified factors, initial encounter; Y93.89 Activity, other specified; Y92.89 Other specified places as the place of occurrence of the external cause; R11.2 Nausea with vomiting, unspecified; R20.1 Hypoesthesia of skin; Z98.890 Other specified postprocedural states; Z87.891 Personal history of nicotine dependence
CPT/HCPCS: 23650; 99284; 99153; 99152; 73020; 73030 ×2; 23655; 36556; C1751; L3650 ×2; J2250; J3010 ×2; J2270 ×2; J2060; J2405; J7030; J2704; 01620

== ENCOUNTER 2017-03-10 14:06 | Emergency (ER) | payer OTHER, MEDICAID ==
[2017-03-10] MEDS ORDERED: NORMAL SALINE 1000 ML 1,000 ML IV ONE (15:15)
--- NOTE | 2017-03-10 15:15 | ER Document Report ---
ED Medical Screen (RME) - General Chief Complaint: Seizure Stated Complaint: POSSIBLE SEIZURE,SHOULDER PAIN Time Seen by Provider: 03/10/17 15:14 Notes: Patient states she has a history of pseudotumor cerebri. She states this causes her to have seizures. She states she had a seizure about 3 hours ago. She now feels that her right shoulder is dislocated. TRAVEL OUTSIDE OF THE [place] IN LAST 30 DAYS: No - Related Data Allergies/Adverse Reactions: rocuronium Allergy (Severe, Verified 03/10/17 14:13) Cardiac arrest clonidine [Clonidine] Allergy (Verified 03/10/17 14:13) droperidol Allergy (Verified 03/10/17 14:13) etomidate [Etomidate] Allergy (Verified 03/10/17 14:13) lisinopril Allergy (Verified 03/10/17 14:13) Facial swelling metoclopramide HCl [From Reglan] Allergy (Verified 03/10/17 14:13) Past Medical History - Past Medical History Cardiac Medical History: Reports: Hx Hypertension Denies: Hx Coronary Artery Disease, Hx Heart Attack Pulmonary Medical History: Reports: Hx Pneumonia Denies: Hx Asthma, Hx Bronchitis, Hx COPD Neurological Medical History: Reports: Hx Seizures. Denies: Hx Cerebrovascular Accident Renal/ Medical History: Reports: Hx Kidney Stones. Denies: Hx Peritoneal Dialysis Musculoskeltal Medical History: Denies Hx Arthritis Psychiatric Medical History: Denies: Hx Depression Past Surgical History: Reports: Hx Section, Hx Neurologic Surgery - intercranial shunt, Hx Orthopedic Surgery - Patient is status post a right Bankart repair in [facility] - Immunizations Hx Diphtheria, Pertussis, Tetanus Vaccination: Yes History of Influenza Vaccine for 02/2017 - 07/2017 Season: Refused Physical Exam - Vital signs Vitals: Temp Pulse Resp BP Pulse Ox 98.2 F 111 H 18 144/88 H 100 03/10/17 14:13 03/10/17 14:13 03/10/17 14:13 03/10/17 14:13 03/10/17 14:13 Course - Vital Signs Vital signs: Temp Pulse Resp BP Pulse Ox 98.2 F 111 H 18 144/88 H 100 03/10/17 14:13 03/10/17 14:13 03/10/17 14:13 03/10/17 14:13 03/10/17 14:13
--- NOTE | 2017-03-10 15:48 | RADIOLOGY REPORT (SQ) ---
EXAM DESCRIPTION: SHOULDER RIGHT 2 OR MORE VIEWS COMPLETED DATE/TIME: 03/10/2017 3:33 pm REASON FOR STUDY: pain COMPARISON: 02/18/2017 NUMBER OF VIEWS: Two views TECHNIQUE: Internal external rotation images acquired of the right shoulder. LIMITATIONS: None. FINDINGS: MINERALIZATION: Normal. BONES: Anterior dislocation again seen of the humeral head. No obvious acute fracture. JOINTS: Anterior dislocation humeral head. VISUALIZED LUNGS AND RIBS: No pneumothorax. No rib fracture. SOFT TISSUES: No radiopaque foreign body. OTHER: Bone screws again seen. IMPRESSION: Anterior dislocation humeral head. TECHNICAL DOCUMENTATION: JOB ID: [id number] [employer]- All Rights Reserved
[2017-03-10 16:05] LABS: APPEARANCE,URINE SLIGHTLY-CLOUDY; BILIRUBIN,URINE NEGATIVE (NEGATIVE); GLUCOSE, URINE NEGATIVE (NEGATIVE); KETONES,URINE NEGATIVE (NEGATIVE); LEUKOCYTE ESTERASE,URINE NEGATIVE (NEGATIVE); NITRITE,URINE NEGATIVE (NEGATIVE); PROTEIN,URINE NEGATIVE (NEGATIVE); URINE SPECIFIC GRAVITY 1.019; UROBILINOGEN,URINE NEGATIVE mg/dL (<2.0)
--- NOTE | 2017-03-10 16:39 | ER Document Report ---
ED General - General Chief Complaint: Seizure Stated Complaint: POSSIBLE SEIZURE,SHOULDER PAIN Time Seen by Provider: 03/10/17 15:14 Notes: She states that she has long-standing history of pseudotumor cerebri. When her fluid levels are elevated she has seizures. When she has a seizure she dislocates her right shoulder. States that this happened today. Complaining of pain in the right shoulder. Has a neurologist but that is in [facility]. New to the area. Has been seen in this emergency department one time prior for lumbar puncture as well as OR reduction of her right shoulder. States that she is allergic to most of the medications which are used for sedation. Denies major headache at this time. No fever. No chills. No sweats. TRAVEL OUTSIDE OF THE [place] IN LAST 30 DAYS: No - HPI Onset: Just prior to arrival Onset/Duration: Sudden - Related Data Allergies/Adverse Reactions: rocuronium Allergy (Severe, Verified 03/10/17 14:13) Cardiac arrest clonidine [Clonidine] Allergy (Verified 03/10/17 14:13) droperidol Allergy (Verified 03/10/17 14:13) etomidate [Etomidate] Allergy (Verified 03/10/17 14:13) lisinopril Allergy (Verified 03/10/17 14:13) Facial swelling metoclopramide HCl [From Reglan] Allergy (Verified 03/10/17 14:13) Past Medical History - Social History Smoking Status: Current Every Day Smoker Chew tobacco use (# tins/day): No Frequency of alcohol use: None Drug Abuse: None Family History: Reviewed & Not Pertinent Patient has suicidal ideation: No Patient has homicidal ideation: No - Past Medical History Cardiac Medical History: Reports: Hx Hypertension Denies: Hx Coronary Artery Disease, Hx Heart Attack Pulmonary Medical History: Reports: Hx Pneumonia Denies: Hx Asthma, Hx Bronchitis, Hx COPD Neurological Medical History: Reports: Hx Seizures. Denies: Hx Cerebrovascular Accident Renal/ Medical History: Reports: Hx Kidney Stones. Denies: Hx Peritoneal Dialysis Musculoskeltal Medical History: Denies Hx Arthritis Psychiatric Medical History: Denies: Hx Depression Past Surgical History: Reports: Hx Section, Hx Neurologic Surgery - intercranial shunt, Hx Orthopedic Surgery - Patient is status post a right Bankart repair in [facility] - Immunizations Hx Diphtheria, Pertussis, Tetanus Vaccination: Yes Review of Systems - Review of Systems Constitutional: No symptoms reported EENT: No symptoms reported Cardiovascular: No symptoms reported Respiratory: No symptoms reported Gastrointestinal: No symptoms reported Genitourinary: No symptoms reported Female Genitourinary: No symptoms reported Musculoskeletal: See HPI Skin: No symptoms reported Hematologic/Lymphatic: No symptoms reported Neurological/Psychological: No symptoms reported, Seizure Physical Exam - Vital signs Vitals: Temp Pulse Resp BP Pulse Ox 98.2 F 111 H 18 144/88 H 100 03/10/17 14:13 03/10/17 14:13 03/10/17 14:13 03/10/17 14:13 03/10/17 14:13 Interpretation: Normal - General General appearance: Appears well, Alert - HEENT Head: Normocephalic, Atraumatic Eyes: Normal Pupils: PERRL Notes: Funduscopic exam is fairly unremarkable with no appreciable papilledema but limited due to patient's cooperation and the quality of the ophthalmoscope - Respiratory Respiratory status: No respiratory distress Chest status: Nontender Breath sounds: Normal Chest palpation: Normal - Cardiovascular Rhythm: Regular Heart sounds: Normal auscultation Murmur: No - Abdominal Inspection: Normal Distension: No distension Bowel sounds: Normal Tenderness: Nontender Organomegaly: No organomegaly - Back Back: Normal, Nontender - Extremities General upper extremity: Normal color, Normal temperature, Other - Patient has apparent anterior dislocation of the right humeral head with tenderness to palpation and no range of motion at the shoulder. Pulses are intact of the right upper extremity. Sensation intact. General lower extremity: Normal inspection, Nontender, Normal color, Normal ROM , Normal temperature, Normal weight bearing. No: Kassandra's sign - Neurological Neuro grossly intact: Yes Cognition: Normal Orientation: AAOx4 [place] Coma Scale Eye Opening: Spontaneous Maria Elena Coma Scale Verbal: Oriented Maria Elena Coma Scale Motor: Obeys Commands Maria Elena Coma Scale Total: 15 Speech: Normal Motor strength normal: LUE, RUE, LLE, RLE Sensory: Normal - Psychological Associated symptoms: Normal affect, Normal mood - Skin Skin Temperature: Warm Skin Moisture: Dry Skin Color: Normal Course - Re-evaluation Re-evalutation: 03/10/17 16:49 Will get the nurse to be made aware that patient has an anterior dislocation. Will attempt reduction here. Will speak with radiology about possible lumbar puncture for fluid removal. If radiology is unavailable will attempt to do in the emergency department peer 03/10/17 17:31 Consent was obtained for conscious sedation, shoulder reduction. Radiology will do LP at this time for fluid removal. We will give IM dose of ketamine for the procedural sedation. Will give a dose of IM fentanyl at this time. Unable to establish IV. 03/10/17 18:09 Patient to radiology suite at this time for lumbar centesis 03/10/17 18:29 She was sent to radiology for lumbar centesis. Patient refused after eating stuck with a needle and said that she could not tolerate the pain in her back so patient was transferred back to the ER. After reviewing all of patient's records it is apparent the patient has had this happen on numerous occasions. I believe that the chronically dislocated right shoulder will be back dislocated even if I do reduce it. Patient has been observed here in the ER for quite some time and has no seizure-like activity. Will do a reduction attempt on the right shoulder. We will give her another dose of Diamox, Lasix, Valium as well as some IM fentanyl. If radiologist is unable to do the procedure here I would prefer that patient be sent home with the oral treatment at this time and return to the emergency department in 12-24 hours for repeat evaluation and possible repeat trial at LP. Seems comfortable with this plan at this time 03/10/17 19:09 Patient was given medications orally and IM. Gentle traction was performed. There was an audible and palpable reduction performed. Patient was placed in immediate sling. I did not order postreduction films as patient has a chronically dislocated and chronically dislocating right shoulder. Has orthopedic appointment this week. Patient was advised to increase her Diamox to 3 times a day. Will discharge her with a Percocet take-home pack. Patient advised to return in the morning if she is developing any other symptoms. - Vital Signs Vital signs: Temp Pulse Resp BP Pulse Ox 98.2 F 111 H 18 144/88 H 100 03/10/17 14:13 03/10/17 14:13 03/10/17 14:13 03/10/17 14:13 03/10/17 14:13 - Laboratory Laboratory results interpreted by me: 03/10/17 15:44 Urine Blood SMALL H Procedures - Joint Reduction/Fracture Care Right Upper Shoulder Consent obtained: Yes Conscious sedation: No Pre-procedure NV exam: Yes Manipulation comment: Epilation of traction of the right shoulder performed for right anterior sh Post-procedure NV exam: Yes Reduction attempts: 1 Complications: No Discharge - Discharge Clinical Impression: Pseudotumor cerebri syndrome Shoulder dislocation, recurrent Qualifiers: Laterality: right Qualified Code(s): M24.411 - Recurrent dislocation, right shoulder Condition: Good Disposition: HOME, SELF-CARE Instructions: Seizure, Known Epileptic ([facility]), Shoulder Dislocation ([facility]) Additional Instructions: If you develop worsening symptoms please return to the emergency department for repeat evaluation. Increase her Diamox to 500 mg 3 times a day. Pain medication as instructed and needed. Follow-up with orthopedics as scheduled. Prescriptions: Hydrocodone/Acetaminophen [Crystal 5-325 mg Tabs #6 ER Disp] 6 tab PO QID #1 dspk
[2017-03-10] MEDS ORDERED: KETAMINE HCL INJ 500 MG/10 ML VIAL IM ONE (16:56)
[2017-03-10] MEDS ORDERED: DIAZEPAM INJ 10 MG/2 ML DISP.SYRIN IV PRN (16:59)
[2017-03-10] MEDS ORDERED: FENTANYL CITRATE INJ/PF 100 MCG/2 ML AMPUL IM ONE ×2 (17:30→18:25)
[2017-03-10] MEDS ORDERED: DIAZEPAM 5 MG TABLET PO ONE (18:25)
[2017-03-10] MEDS ORDERED: ACETAZOLAMIDE 500 MG CAPSULE.SA PO ONE (18:27)
[2017-03-10] MEDS ORDERED: FUROSEMIDE 40 MG TABLET PO ONE (18:27)
--- NOTE | 2017-03-10 18:35 | RADIOLOGY REPORT (SQ) ---
EXAM DESCRIPTION: LUMBAR PUNCTURE COMPLETED DATE/TIME: 03/10/2017 6:18 pm REASON FOR STUDY: removal of spinal fluid in hx of ctc COMPARISON: None. FLUOROSCOPY TIME: 10 seconds 1 images saved to PACS. TECHNIQUE: Fluoroscopic guided lumbar puncture. LIMITATIONS: See entry below. PROCEDURE: The patient was in considerable discomfort due to recurrent dislocation of the right shou lder. She had received medication in the emergency room but continued to have discomfort. The patient was placed prone on the fluoroscopy table. A suitable entry site was selected under fluo roscopy. The skin of the lumbar region was prepped and draped in sterile fashion. Lidocaine was adm inistered for local anesthesia. The spinal needle was advanced approximately 1 cm. At this point th e patient complained of pain at the entry site and also of the pain and discomfort related to her rig ht shoulder. She stated multiple times that she wished to proceed no further but to return at a late r time, probably tomorrow, for her therapeutic lumbar puncture. I mentioned to her several times aubrey t we could give her additional local anesthesia to make the lumbar puncture more comfortable. Howeve r, she stated several times that she did not want any more local anesthesia and did not want to have the lumbar puncture performed at this time. She stated that she would return on another day for ther apeutic lumbar puncture. FINDINGS: Patient refused to proceed with the procedure. IMPRESSION: Lumbar puncture attempted but not performed due to patient refusal. COMMENT: Patient medication list reviewed: Yes- Quality ID# [id number]:Eligible professional attests to doc umenting in the medical record they obtained, updated, or reviewed the patient's current medications. . Quality ID [id number]: Final reports for procedures using fluoroscopy that document radiation exposure lexie brayden, or exposure time and number of fluorographic images (if radiation exposure indices are not avail able) TECHNICAL DOCUMENTATION: JOB ID: [id number] [employer]- All Rights Reserved
[2017-03-10 19:33] VITALS: BP 130/91
== END 2017-03-10 19:40 | disposition home or self-care (01) ==
LOC: ER 14:06
PROC: 0RSJXZZ Reposition Right Shoulder Joint, External Approach (ICD-10-PCS; principal; 2017-03-10)
DX: M24.411 Recurrent dislocation, right shoulder (principal); G93.2 Benign intracranial hypertension; R56.9 Unspecified convulsions; M25.511 Pain in right shoulder; F17.200 Nicotine dependence, unspecified, uncomplicated
CPT/HCPCS: 99284; 81025; 81001; 73030; 62270; 23650; J3490; J3010

== ENCOUNTER 2017-03-20 09:46 | Emergency (ER) | payer OTHER, MEDICAID ==
--- NOTE | 2017-03-20 10:11 | ER Document Report ---
ED General - General Stated Complaint: FALL SHOULDER INJURY Time Seen by Provider: 03/20/17 09:57 Notes: Patient states that she has a chronic history of right shoulder dislocation and pseudotumor cerebra as well as seizures. Supposedly taking Topamax, Diamox. Followed by orthopedic surgeon in [place], Dr. Gary. States that she saw the physician's assistant professor of economics last week and is getting scheduled for surgery if she can get an MRI done. By report from the office at Dr. Gary's office there was an order placed but they have been unable to get her to do the MRI. Patient can have surgery until she has the MRI. States that she had a seizure this morning, fell, hit her lip and dislocated her shoulder. Denies any other symptoms at this time other than right shoulder pain and small abrasion on her lower lip. TRAVEL OUTSIDE OF THE [place] IN LAST 30 DAYS: No - HPI Onset: Just prior to arrival Onset/Duration: Sudden Severity: Moderate Pain Level: 3 Associated symptoms: None, Headache - Related Data Allergies/Adverse Reactions: rocuronium Allergy (Severe, Verified 03/10/17 14:13) Cardiac arrest clonidine [Clonidine] Allergy (Verified 03/10/17 14:13) droperidol Allergy (Verified 03/10/17 14:13) etomidate [Etomidate] Allergy (Verified 03/10/17 14:13) lisinopril Allergy (Verified 03/10/17 14:13) Facial swelling metoclopramide HCl [From Reglan] Allergy (Verified 03/10/17 14:13) Past Medical History - General Information source: Patient - Social History Smoking Status: Never Smoker Frequency of alcohol use: None Drug Abuse: None Family History: Reviewed & Not Pertinent - Past Medical History Cardiac Medical History: Reports: Hx Hypertension Denies: Hx Coronary Artery Disease, Hx Heart Attack Pulmonary Medical History: Reports: Hx Pneumonia Denies: Hx Asthma, Hx Bronchitis, Hx COPD Neurological Medical History: Reports: Hx Seizures. Denies: Hx Cerebrovascular Accident Renal/ Medical History: Reports: Hx Kidney Stones. Denies: Hx Peritoneal Dialysis Musculoskeltal Medical History: Denies Hx Arthritis Psychiatric Medical History: Denies: Hx Depression Past Surgical History: Reports: Hx Section, Hx Neurologic Surgery - intercranial shunt, Hx Orthopedic Surgery - Patient is status post a right Bankart repair in [facility] - Immunizations Hx Diphtheria, Pertussis, Tetanus Vaccination: Yes Review of Systems - Review of Systems Constitutional: No symptoms reported EENT: No symptoms reported Cardiovascular: No symptoms reported Respiratory: No symptoms reported Gastrointestinal: No symptoms reported Genitourinary: No symptoms reported Female Genitourinary: No symptoms reported Musculoskeletal: See HPI, Other - Right shoulder dislocations Skin: No symptoms reported Hematologic/Lymphatic: No symptoms reported Neurological/Psychological: No symptoms reported, Seizure, Headaches - Pseudotumor cerebri Physical Exam - Vital signs Vitals: Pulse Ox 100 03/20/17 10:13 Interpretation: Normal - General General appearance: Appears well, Alert - HEENT Head: Normocephalic, Atraumatic Eyes: Normal Pupils: PERRL Mouth/Lips: Other - Small abrasion on the lower lip. No suturable lacerations appreciated.. No tongue lacerations. No buccal mucosal lacerations per Mucous membranes: Normal Pharynx: Normal Neck: Normal - Respiratory Respiratory status: No respiratory distress Chest status: Nontender Breath sounds: Normal Chest palpation: Normal - Cardiovascular Rhythm: Regular Heart sounds: Normal auscultation Murmur: No - Abdominal Inspection: Normal Distension: No distension Bowel sounds: Normal Tenderness: Nontender Organomegaly: No organomegaly - Back Back: Normal, Nontender - Extremities General upper extremity: Other - Upper extremity normal. Right upper extremity demonstrates deformity of the right shoulder. Radius and ulnar pulses are intact. Two-point discrimination intact distally. Scars noted on the right shoulder from previous shoulder surgeries. General lower extremity: Normal inspection, Nontender, Normal color, Normal ROM , Normal temperature, Normal weight bearing. No: Kassandra's sign - Neurological Neuro grossly intact: Yes Cognition: Normal Orientation: AAOx4 Maria Elena Coma Scale Eye Opening: Spontaneous Maria Elena Coma Scale Verbal: Oriented [place] Coma Scale Motor: Obeys Commands Maria Elena Coma Scale Total: 15 Speech: Normal Motor strength normal: LUE, RUE, LLE, RLE Sensory: Normal - Psychological Associated symptoms: Normal affect, Normal mood - Skin Skin Temperature: Warm Skin Moisture: Dry Skin Color: Normal Course - Re-evaluation Re-evalutation: 03/20/17 13:03 Of note. Patient states that she is supposed to be taking seizure medications but is not taking anything because she does not have "a neurologist here in town ". It is apparent the patient has been in town long enough to establish care with a neurologist. I find no papilledema on physical exam. Patient not complaining of a headache. 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 Spoke with radiologist who did not feel comfortable getting an MRI on her shoulder today as a emergency. Did not feel that it would be appropriate to do a spinal tap as she has had several here. Patient was advised that no one here would be able to provide her with a spinal tap however I do not feel patient needs one here anyway. Patient needs a neurosurgeon, neurologist, orthopedic surgeon, psychiatrist. 03/20/17 13:31 Shoulder X-Ray 03/20/17 12:38 IMPRESSION: Dislocation has been reduced. No acute abnormality is appreciated. Shoulders been reduced but anticipate patient will be back. Patient does not have a headache, no seizure activity in the ER, was sitting upright talking on the phone with normal vital signs normal neurological exam in no acute distress. Patient does not need a spinal tap. Patient needs a neurosurgeon, a neurologist and other specialties as mentioned above. Nothing further to offer her here. Discharging at this time in stable condition. - Vital Signs Vital signs: Temp Pulse Resp BP Pulse Ox 114 H 20 156/112 H 100 03/20/17 13:36 03/20/17 13:36 03/20/17 13:36 03/20/17 13:36 Procedures - Conscious Sedation Conscious sedation Consent obtained: Yes Indication: Joint dislocation reduction Last meal: 12 hours ago Prior complications: Procedural sedation Pt with a mild systemic disease.: P2. - ASA Classification. Airway Evaluation: Normal anatomy Mallampati Classification: Class 2 Used during procedure: Suction available, Pulse ox on pt., ekg monitor on pt. Medications administered: Fentanyl, Ketamine I personally performed/intraservice time: 30 min or less Complications: No - Joint Reduction/Fracture Care Right Shoulder Consent obtained: Yes Conscious sedation: Yes Pre-procedure NV exam: Yes Fracture: No: Open, Closed, Other Post-procedure NV exam: Yes Post-reduction x-ray: Joint reduced Reduction attempts: 2 Complications: No Notes: 03/20/17 13:00 Of note. 450 mg of ketamine was used. Prior to ketamine approximately 1 hour before there was 200 mcg of fentanyl given. Patient can visibly be seen flexing her shoulder and intentionally dislocating her shoulder even while sedated.. I could very easily rotate the shoulder and feel the shoulder go back into joint/back into place and then patient would flex her shoulder muscles and I could see this shoulder pop right back out. This is obviously a component here which cannot be explained by shear mechanical forces. Discharge - Discharge Clinical Impression: Chronic dislocation of right shoulder, Seizure disorder, Pseudotumor cerebri syndrome Condition: Stable Disposition: HOME, SELF-CARE Instructions: Neurologist, Seizure, Known Epileptic ([facility]), Shoulder Dislocation ([facility]), Sling as Treatment ([facility]) Prescriptions: Topiramate [Topamax 25 mg Tablet] 25 mg PO BID 30 Days #60 tab Referrals: ANTWON LAWRENCE MD [NO LOCAL MD] - Follow up in 1 week BETTY GARY MD [NO LOCAL MD] - Follow up in 1 week
[2017-03-20] MEDS ORDERED: FENTANYL CITRATE INJ/PF 250 MCG/5 ML AMPULE IM ONE (10:18)
[2017-03-20] MEDS ORDERED: HYDROCODONE/ACETAMINOPHEN 10-325 MG TABLET PO ONE (10:21)
[2017-03-20] MEDS ORDERED: ONDANSETRON 4 MG TAB.RAPDIS PO ONE (10:22)
--- NOTE | 2017-03-20 11:27 | RADIOLOGY REPORT (SQ) ---
EXAM DESCRIPTION: SHOULDER RIGHT 2 OR MORE VIEWS COMPLETED DATE/TIME: 03/20/2017 10:53 am REASON FOR STUDY: shoulder dislocation COMPARISON: 03/10/2017 NUMBER OF VIEWS: Three views. TECHNIQUE: Internal rotation, external rotation, and Y view images acquired of the right shoulder. LIMITATIONS: None. FINDINGS: MINERALIZATION: Normal. BONES: Stable chronic posttraumatic change with fixation screws in the glenoid. JOINTS: Anterior subluxation/ dislocation of the humeral head similar to prior study. VISUALIZED LUNGS AND RIBS: No pneumothorax. No rib fracture. SOFT TISSUES: No radiopaque foreign body. OTHER: No other significant finding. IMPRESSION: STABLE CHRONIC POSTTRAUMATIC CHANGE WITH SUPERIMPOSED ANTERIOR SUBLUXATION/ DISLOCATION OF THE HUMERAL HEAD WHICH IS SIMILAR IN APPEARANCE TO PRIOR STUDIES. TECHNICAL DOCUMENTATION: JOB ID: [id number] [employer]- All Rights Reserved
[2017-03-20] MEDS ORDERED: FENTANYL CITRATE INJ/PF 100 MCG/2 ML AMPUL IV ONE (11:30)
[2017-03-20] MEDS ORDERED: KETAMINE HCL INJ 500 MG/10 ML VIAL IM ONE (11:51)
--- NOTE | 2017-03-20 13:26 | RADIOLOGY REPORT (SQ) ---
EXAM DESCRIPTION: SHOULDER RIGHT 2 OR MORE VIEWS COMPLETED DATE/TIME: 03/20/2017 1:06 pm REASON FOR STUDY: post reduc COMPARISON: None. NUMBER OF VIEWS: Two views. TECHNIQUE: Frontal and lateral images acquired of the right shoulder. LIMITATIONS: None. FINDINGS: 2 images show the dislocation to have been reduced. Posttraumatic changes are present and there are 2 long cannulated screws in the glenoid. IMPRESSION: Dislocation has been reduced. No acute abnormality is appreciated. TECHNICAL DOCUMENTATION: JOB ID: [id number] [employer]- All Rights Reserved
[2017-03-20 14:00] VITALS: BP 145/104
== END 2017-03-20 14:02 | disposition home or self-care (01) ==
LOC: ER 09:46
PROC: 0RSJXZZ Reposition Right Shoulder Joint, External Approach (ICD-10-PCS; principal; 2017-03-20)
DX: M24.411 Recurrent dislocation, right shoulder (principal); G40.909 Epilepsy, unspecified, not intractable, without status epilepticus; G93.2 Benign intracranial hypertension; W19.XXXA Unspecified fall, initial encounter
CPT/HCPCS: 99284; 99152; 73030; 23650; L3650; S0119; J3010

== ENCOUNTER 2017-04-05 15:53 | Emergency (ER) | payer OTHER, MEDICAID ==
[2017-04-05 16:13] VITALS: BP 140/106
--- NOTE | 2017-04-05 17:20 | RADIOLOGY REPORT (SQ) ---
EXAM DESCRIPTION: SHOULDER RIGHT 2 OR MORE VIEWS COMPLETED DATE/TIME: 04/05/2017 5:12 pm REASON FOR STUDY: injury COMPARISON: 03/20/2017. NUMBER OF VIEWS: Two views, AP and scapular Y. LIMITATIONS: None. FINDINGS: Recurrent anterior dislocation. Chronic postoperative and degenerative/ old posttraumatic changes in the humeral head. No shoulder separation. Right lung clear. OTHER: No other significant finding. IMPRESSION: Anterior shoulder dislocation. TECHNICAL DOCUMENTATION: JOB ID: [id number]
--- NOTE | 2017-04-05 18:43 | ER Document Report ---
ED Extremity Problem, Upper - General Mode of Arrival: Ambulatory Information source: Patient TRAVEL OUTSIDE OF THE U.S. IN LAST 30 DAYS: No - HPI Onset: This morning <JESSICA GALEANO - Last Filed: 04/05/17 19:08> <GURWINDER CONTRERAS - Last Filed: 04/05/17 23:37> - General Chief Complaint: Shoulder Injury Stated Complaint: POSSIBLE SEIZURE Time Seen by Provider: 04/05/17 18:21 Notes: Patient is a 31 year old female who presents to the emergency department complaining of a right shoulder dislocation. Patient has an extensive history at this emergency department for frequents shoulder dislocation, mainly during her seizures. Patient states she possibly had a seizure this morning during which she dislocated her right shoulder. Patient states that her shoulder will sometimes dislocated on its own where she is able to sometimes put it back in place. Patient states she has not had the recommended MRI at [place] by Orthopedics. Patient states that she also has not followed up with Neurology about her seizures because she has not saved up the money to go to [place] to do so. (JESSICA GALEANO) - Related Data Allergies/Adverse Reactions: rocuronium Allergy (Severe, Verified 03/10/17 14:13) Cardiac arrest clonidine [Clonidine] Allergy (Verified 03/10/17 14:13) droperidol Allergy (Verified 03/10/17 14:13) etomidate [Etomidate] Allergy (Verified 03/10/17 14:13) lisinopril Allergy (Verified 03/10/17 14:13) Facial swelling metoclopramide HCl [From Reglan] Allergy (Verified 03/10/17 14:13) Past Medical History - General Information source: Patient - Social History Smoking Status: Current Every Day Smoker Frequency of alcohol use: None Drug Abuse: None Family History: Reviewed & Not Pertinent Patient has suicidal ideation: No Patient has homicidal ideation: No - Past Medical History Cardiac Medical History: Reports: Hx Hypertension Pulmonary Medical History: Reports: Hx Pneumonia Neurological Medical History: Reports: Hx Seizures Renal/ Medical History: Reports: Hx Kidney Stones Past Surgical History: Reports: Hx Section, Hx Neurologic Surgery - intercranial shunt, Hx Orthopedic Surgery - Patient is status post a right Bankart repair in [facility] - Immunizations Hx Diphtheria, Pertussis, Tetanus Vaccination: Yes <JESSICA GALEANO - Last Filed: 04/05/17 19:08> Review of Systems - Review of Systems Constitutional: No symptoms reported EENT: No symptoms reported Cardiovascular: No symptoms reported Respiratory: No symptoms reported Gastrointestinal: No symptoms reported Genitourinary: No symptoms reported Female Genitourinary: No symptoms reported Musculoskeletal: Other - right dislocated shoulder Hematologic/Lymphatic: No symptoms reported Neurological/Psychological: No symptoms reported -: Yes All other systems reviewed and negative <JESSICA GALEANO - Last Filed: 04/05/17 19:08> Physical Exam - General General appearance: Appears well, Alert In distress: None - HEENT Head: Normocephalic, Atraumatic Conjunctiva: Normal Pupils: PERRL Mucous membranes: Moist - Respiratory Respiratory status: No respiratory distress - Extremities Shoulder: Dislocation - subcoracoid at right glenoid, consistent with X-ray. tender to palpation - Neurological Neuro grossly intact: Yes Cognition: Normal Orientation: AAOx4 [place] Coma Scale Eye Opening: Spontaneous [place] Coma Scale Verbal: Oriented [place] Coma Scale Motor: Obeys Commands Maria [place] Coma Scale Total: 15 Speech: Normal - Psychological Associated symptoms: Normal affect, Normal mood - Skin Skin Temperature: Warm Skin Moisture: Dry Skin Color: Normal <JESSICA GALEANO - Last Filed: 04/05/17 19:08> - Vital signs Vitals: Temp Pulse Resp BP Pulse Ox 97.8 F 103 H 20 140/106 H 99 04/05/17 16:08 04/05/17 16:08 04/05/17 16:08 04/05/17 16:08 04/05/17 16:08 Course <JESSICA GALEANO - Last Filed: 04/05/17 19:08> - Diagnostic Test Radiology reviewed: Image reviewed, Reports reviewed - Anterior dislocation right shoulder, prior surgery on the shoulder - Consults Dr. Schmidt Consulted provider: follow-up in office - The patient's case was discussed with Dr. Schmidt. He is quite familiar with this patient. He does agree that it is quite reasonable to place a sling on the patient tonight and she can come to the office tomorrow to be evaluated. <GURWINDER CONTRERAS - Last Filed: 04/05/17 23:37> - Re-evaluation Re-evalutation: 04/05/17 19:52 The patient refused the sling. She then told the nurse she wanted to get a lumbar puncture to drain fluid because of her seizures. She was unhappy with her care. She was told that we do not have radiology services to do a fluoroscopic guided lumbar puncture and therefore it will not be done tonight. She will be transferred to another facility for this nonurgent procedure. Reviewing the records show she seem to come here to have this done. She has been doing this for quite some time, has repeatedly been asked to get a local neurologist to manage this problem but she has refused so far. She has also been referred to do to manage her shoulder several times by [facility] for surgery, she still has not done that. She states she is waiting for an MRI to be done, that was mentioned on visits up to a month and a half ago here. She told me she was waiting for someone to help her get enough money to go to [place] to see her neurosurgeon. She does have [place] Medicaid and there is no financial reason or need to go all the way to [place] have this done. There is further no good explanation or excuse for her refusing to follow-up with the appropriate specialists and issue [place] or [facility], or reasonable excuse to repeatedly come the emergency room seeking lumbar punctures. (GURWINDER CONTRERAS) - Vital Signs Vital signs: Temp Pulse Resp BP Pulse Ox 97.8 F 103 H 20 140/106 H 99 04/05/17 16:08 04/05/17 16:08 04/05/17 16:08 04/05/17 16:08 04/05/17 16:08 Discharge <JESSICA GALEANO - Last Filed: 04/05/17 19:08> <GURWINDER CONTRERAS - Last Filed: 04/05/17 23:37> - Discharge Clinical Impression: Shoulder dislocation, recurrent Qualifiers: Laterality: right Qualified Code(s): M24.411 - Recurrent dislocation, right shoulder Condition: Stable Disposition: HOME, SELF-CARE Additional Instructions: Use the sling for support. Call [facility] in the morning for an appointment tomorrow. Referrals: [facility] [Provider Group] - Follow up tomorrow Scribe Attestation: 04/05/17 18:43 I personally performed the services described in the documentation, reviewed and edited the documentation which was dictated to the scribe in my presence, and it accurately records my words and actions. (GURWINDER CONTRERAS) Scribe Documentation - Scribe Written by Samir:: Samir Olivo, 04/05/2017 19:10 acting as scribe for :: Sofía <JESSICA GALEANO - Last Filed: 04/05/17 19:08>
[2017-04-05] MEDS ORDERED: HYDROCODONE/ACETAMINOPHEN 5-325 MG TABLET PO ONE (18:44)
[2017-04-05] MEDS ORDERED: HYDROCODONE/ACETAMINOPHEN 5-325 MG 6 TAB/DSPK PO PRN (18:45)
== END 2017-04-05 19:50 | disposition home or self-care (01) ==
LOC: ER 15:53
DX: M24.411 Recurrent dislocation, right shoulder (principal); M25.511 Pain in right shoulder; F17.200 Nicotine dependence, unspecified, uncomplicated
CPT/HCPCS: 99284

== ENCOUNTER → 2017-04-13 | Day surgery (SDC) | payer OTHER, MEDICAID ==
[~2017-04-13] MED LIST: LIDOCAINE 1% INJ-PF (10 MG/ML) 30 ML SDV ONE
--- NOTE | 2017-04-13 14:00 | RADIOLOGY REPORT (SQ) ---
EXAM DESCRIPTION: ARTHRO SHOULDER INJECTION; FLUORO/NEEDLE PLACEMENT COMPLETED DATE/TIME: 04/13/2017 1:45 pm REASON FOR STUDY: RIGHT SHOULDER PAIN (M25.511) M25.511 PAIN IN RIGHT SHOULDER COMPARISON: None. FLUOROSCOPY TIME: 12 seconds 1 images saved to PACS. LIMITATIONS: None. PROCEDURE: Procedure, risks, benefits and alternatives explained to patient who then gave written c onsent. The right shoulder was marked and a time-out was called for correct marking verification. An terior entry site marked using fluoroscopic guidance. Shoulder prepped and draped using instructor adjunct pharmacy technician nique. Local anesthesia achieved using 1% lidocaine injection. Hypodermic needle introduced into the joint space under direct fluoroscopic visualization. Non-ionic contrast instilled to confirm int ra-articular position. Dilute gadolinium solution then injected. Needle removed and entry site cov ered with sterile bandage. No immediate complications noted. TECHNIQUE: Digital images acquired during fluoroscopy and stored on PACS. Patient immediately taken to the MR suite for additional imaging. INJECTION LOCATION: Anterior right shoulder. CONTRAST TYPE AND AMOUNT:1 cc Omnipaque. 8 cc Prohance. IMPRESSION: SUCCESSFUL NEEDLE PLACEMENT AND INJECTION FOR RIGHT SHOULDER MR ARTHROGRAM USING ANTERIO R APPROACH. COMMENT: Quality ID [id number]: Final reports for procedures using fluoroscopy that document radiation exp osure indices, or exposure time and number of fluorographic images (if radiation exposure indices are not available) TECHNICAL DOCUMENTATION: JOB ID: [id number] [employer]- All Rights Reserved
--- NOTE | 2017-04-13 14:00 | RADIOLOGY REPORT (SQ) ---
EXAM DESCRIPTION: ARTHRO SHOULDER INJECTION; FLUORO/NEEDLE PLACEMENT COMPLETED DATE/TIME: 04/13/2017 1:45 pm REASON FOR STUDY: RIGHT SHOULDER PAIN (M25.511) M25.511 PAIN IN RIGHT SHOULDER COMPARISON: None. FLUOROSCOPY TIME: 12 seconds 1 images saved to PACS. LIMITATIONS: None. PROCEDURE: Procedure, risks, benefits and alternatives explained to patient who then gave written c onsent. The right shoulder was marked and a time-out was called for correct marking verification. An terior entry site marked using fluoroscopic guidance. Shoulder prepped and draped using news technical director nique. Local anesthesia achieved using 1% lidocaine injection. Hypodermic needle introduced into the joint space under direct fluoroscopic visualization. Non-ionic contrast instilled to confirm int ra-articular position. Dilute gadolinium solution then injected. Needle removed and entry site cov ered with sterile bandage. No immediate complications noted. TECHNIQUE: Digital images acquired during fluoroscopy and stored on PACS. Patient immediately taken to the MR suite for additional imaging. INJECTION LOCATION: Anterior right shoulder. CONTRAST TYPE AND AMOUNT:1 cc Omnipaque. 8 cc Prohance. IMPRESSION: SUCCESSFUL NEEDLE PLACEMENT AND INJECTION FOR RIGHT SHOULDER MR ARTHROGRAM USING ANTERIO R APPROACH. COMMENT: Quality ID 145: Final reports for procedures using fluoroscopy that document radiation exp osure indices, or exposure time and number of fluorographic images (if radiation exposure indices are not available) TECHNICAL DOCUMENTATION: JOB ID: [id number] [employer]- All Rights Reserved
--- NOTE | 2017-04-13 15:18 | RADIOLOGY REPORT (SQ) ---
EXAM DESCRIPTION: MRI RT UPPER JOINT WITH COMPLETED DATE/TIME: 04/13/2017 2:19 pm REASON FOR STUDY: RIGHT SHOULDER PAIN (M25.511) M25.511 PAIN IN RIGHT SHOULDER COMPARISON: 06/18/2009 TECHNIQUE: Right shoulder images acquired and stored on PACS. Oblique coronal, oblique sagittal, and axial imaging to include fat sensitive sequences as T1, water sensitive sequences as FST2/STIR, and contrast sensitive sequences as FST1. LIMITATIONS: Motion and susceptibility artifact. FINDINGS: There are 2 metal screws in the glenoid from an anterior approach. Screw tracts in the an terior humeral head. There is debris in the glenohumeral joint. Superior glenohumeral ligament is attenuated but appears intact. Biceps labral complex is not visualized. Distal biceps in the bicipital groove. A normal subscapularis tendon is not visualized, presumably related to prior reconstruction. There a re attenuated remnants of the subscapularis tendon. Remainder of the cuff is intact. Chronic change s in the anterior inferior labrum. IMPRESSION: Technical limitations. 1. Subscapularis appears to have been reconstructed. Cannot exclude recurrent tear. 2. Nonvisualization of the biceps labral complex, possibly related to prior tenodesis. 3. Chronic changes in the anterior inferior labrum. TECHNICAL DOCUMENTATION: JOB ID: [id number] [employer]- All Rights Reserved
== END ==
LOC: RAD 12:31
PROVIDERS: ATTEND Physician Assistant
PROC: BP08ZZZ Plain Radiography of Right Shoulder (ICD-10-PCS; principal; 2017-04-13)
DX: M25.511 Pain in right shoulder (principal)
CPT/HCPCS: 73222; 77002; 23350; A9576; J3490

== ENCOUNTER 2017-06-05 18:58 | Emergency (ER) | payer OTHER, MEDICAID ==
[2017-06-05 19:44] LABS: ABSOLUTE BASOPHILS # (AUTO) 0.1 10^3/uL (0.0-0.2); ABSOLUTE EOSINOPHILS # (AUTO) 0.2 10^3/uL (0.0-0.6); ABSOLUTE LYMPHOCYTES (AUTO) 3.4 10^3/uL (0.5-4.7); ABSOLUTE MONOCYTES (AUTO) 0.5 10^3/uL (0.1-1.4); ABSOLUTE NEUT (AUTO) 3.7 10^3/uL (1.7-8.2); BASOPHILS % (AUTO) 1.3 % (0-2); EOSINOPHILS % (AUTO) 2.4 % (0-6); HEMOGLOBIN 13.2 g/dL (12.0-15.5); LYMPHOCYTES % (AUTO) 43.4 % (13-45); MEAN CORPUSCULAR HEMOGLOBIN 29.1 pg (27.0-33.4); MEAN CORPUSCULAR HGB CONC 33.1 g/dL (32.0-36.0); MEAN CORPUSCULAR VOLUME 88 fl (80-97); MONOCYTES % (AUTO) 5.8 % (3-13); PLATELET COUNT 265 10^3/uL (150-450); RED BLOOD COUNT 4.54 10^6/uL (3.72-5.28); RED CELL DISTRIBUTION WIDTH 15.3 % (11.5-14.0); SEGMENTED NEUTROPHILS % (AUTO) 47.1 % (42-78); TOTAL CELLS COUNTED % (AUTO) 100 %; WHITE BLOOD COUNT 7.9 10^3/uL (4.0-10.5)
[2017-06-05] MEDS ORDERED: KETAMINE HCL INJ 500 MG/10 ML VIAL IM ONE (19:54)
--- NOTE | 2017-06-05 19:56 | ER Document Report ---
ED General - General Chief Complaint: Probable Seizure Stated Complaint: POSSIBLE SEIZURE Time Seen by Provider: 06/05/17 19:46 Notes: Patient is a 32-year-old female with a past medical history of epilepsy and recurrent right shoulder dislocations who presents after having a seizure and sustaining a right shoulder dislocation. Patient arrives complaining of severe , constant, throbbing pain to her right shoulder. Moving the arm at all worsens the pain. Nothing improves the pain. She denies any localizing weakness or numbness. She states this is identical to prior episodes of shoulder dislocations in the setting of seizures. She did run out of both her Diamox and topiramate 2 days ago. She denies any localizing infectious symptoms. She denies any additional trauma during today's seizure other than her right shoulder becoming dislocated. She has not yet followed up with orthopedic surgery regarding her recurrent right shoulder dislocations. She has not contacted a neurologist regarding her chronic seizures. TRAVEL OUTSIDE OF THE [place].S. IN LAST 30 DAYS: No - Related Data Allergies/Adverse Reactions: rocuronium Allergy (Severe, Verified 03/10/17 14:13) Cardiac arrest clonidine [Clonidine] Allergy (Verified 03/10/17 14:13) droperidol Allergy (Verified 03/10/17 14:13) etomidate [Etomidate] Allergy (Verified 03/10/17 14:13) lisinopril Allergy (Verified 03/10/17 14:13) Facial swelling metoclopramide HCl [From Reglan] Allergy (Verified 03/10/17 14:13) Past Medical History - General Information source: Patient - Social History Smoking Status: Never Smoker Chew tobacco use (# tins/day): No Frequency of alcohol use: None Drug Abuse: None Lives with: Family Family History: Reviewed & Not Pertinent Patient has suicidal ideation: No Patient has homicidal ideation: No - Past Medical History Cardiac Medical History: Reports: Hx Hypertension Denies: Hx Coronary Artery Disease, Hx Heart Attack Pulmonary Medical History: Reports: Hx Pneumonia Denies: Hx Asthma, Hx Bronchitis, Hx COPD Neurological Medical History: Reports: Hx Seizures. Denies: Hx Cerebrovascular Accident Renal/ Medical History: Reports: Hx Kidney Stones. Denies: Hx Peritoneal Dialysis Musculoskeltal Medical History: Denies Hx Arthritis Psychiatric Medical History: Denies: Hx Depression Past Surgical History: Reports: Hx Section, Hx Neurologic Surgery - intercranial shunt, Hx Orthopedic Surgery - Patient is status post a right Bankart repair in [facility] - Immunizations Hx Diphtheria, Pertussis, Tetanus Vaccination: Yes Review of Systems - Review of Systems Notes: Constitutional: Negative for fever. HENT: Negative for sore throat. Eyes: Negative for visual changes. Cardiovascular: Negative for chest pain. Respiratory: Negative for shortness of breath. Gastrointestinal: Negative for abdominal pain, vomiting or diarrhea. Genitourinary: Negative for dysuria. Musculoskeletal: Positive right shoulder pain Skin: Negative for rash. Neurological: Negative for headaches, weakness or numbness. 10 point ROS negative except as marked above and in HPI. Physical Exam - Vital signs Vitals: Temp Resp BP Pulse Ox 98.6 F 10 L 139/100 H 100 06/05/17 19:04 06/05/17 19:04 06/05/17 19:04 06/05/17 19:04 Interpretation: Normal Notes: PHYSICAL EXAMINATION: GENERAL: Appears moderately uncomfortable but in no acute distress HEAD: Atraumatic, normocephalic. EYES: Pupils equal round and reactive to light, extraocular movements intact, sclera anicteric, conjunctiva are normal. ENT: nares patent, oropharynx clear without exudates. Moderately dry mucous membranes. NECK: Normal range of motion, supple without lymphadenopathy LUNGS: Breath sounds clear to auscultation bilaterally and equal. No wheezes rales or rhonchi. HEART: Regular rate and rhythm without murmurs ABDOMEN: Soft, nontender, normoactive bowel sounds. No guarding, no rebound. No masses appreciated. EXTREMITIES: Right anterior shoulder dislocation is present. Otherwise no extremity findings on exam NEUROLOGICAL: Face symmetric. Tongue protrudes midline. Extraocular motions intact. Pupils are 2 mm and equally reactive. Normal speech, normal gait. Symmetric body shop manager strength bilaterally. 5 out of 5 both distally and proximally bilateral lower extremities. Sensation is grossly intact throughout. PSYCH: Moderately anxious SKIN: Warm, Dry, normal turgor, no rashes or lesions noted. Course - Re-evaluation Re-evalutation: 06/05/17 19:55 Presentation of well-appearing patient after having a seizure. Patient has a known history of seizures. Patient's triggers she ran out of her topiramate 2 days ago. The patient has returned to baseline without intervention. No focal neurologic deficits. No infectious symptoms, vital sign abnormalities the patient does have a recurrent right shoulder dislocation. Will provide IM ketamine for sedation and reduce the shoulder and placed in a sling. No indication for laboratories or imaging based on reassuring evaluation and known history of seizures. 06/05/17 21:19 Patient achieved appropriate sedation with IM ketamine 450 mg at a 4mg/kg dose. Shoulder was easily reduced in an immobilizer was placed immediately while patient was still sedated. Patient did have a seizure here in the emergency department prior to going over the x-ray. This was terminated with intramuscular Lorazepam. Patient has been given her home dose of topiramate. Postreduction x-ray does show confirmation of successful reduction. Patient has been represcribed her home Topamax as well as Diamox. At this time will discharge with return precautions and follow-up recommendations. Verbal discharge instructions given a the bedside and opportunity for questions given. Medication warnings reviewed. Patient is in agreement with this plan and has verbalized understanding of return precautions and the need for primary care follow-up in the next 24-72 hours. - Vital Signs Vital signs: Temp Pulse Resp BP Pulse Ox 98.6 F 134 H 17 163/101 H 96 06/05/17 19:04 06/05/17 21:15 06/05/17 23:20 06/05/17 23:20 06/05/17 23:20 - Laboratory Result Diagrams: 06/05/17 19:15 Laboratory results interpreted by me: 06/05/17 19:15 RDW 15.3 H - Diagnostic Test Radiology reviewed: Image reviewed, Reports reviewed Radiology results interpreted by me: 06/06/17 03:47 Right shoulder x-ray 1: Anterior dislocation of the humeral head Shoulder x-ray 2: Reduction successful Procedures - Conscious Sedation Conscious sedation Consent obtained: Yes Indication: Right shoulder reduction Prior complications: Procedural sedation Pt with a mild systemic disease.: P2. - ASA Classification. Airway Evaluation: Large tongue, Obese Mallampati Classification: Class 2 Used during procedure: Suction available, Pulse ox on pt., nurse monitoring on pt. Medications administered: Ketamine - IM Reversal agents: None I personally performed/intraservice time: Sedation, Procedure, 30 min or less Complications: No - Joint Reduction/Fracture Care Right Shoulder Consent obtained: Yes Conscious sedation: Yes Pre-procedure NV exam: Yes Fracture: Other Manipulation comment: External rotation, downward traction Post-reduction x-ray: Joint reduced Reduction attempts: 1 Complications: No Discharge - Discharge Clinical Impression: Seizure Dislocation, shoulder, anterior Qualifiers: Encounter type: initial encounter Laterality: right Qualified Code(s): S43.014A - Anterior dislocation of right humerus, initial encounter Disposition: HOME, SELF-CARE Additional Instructions: Today you had a seizure. It is very important that you do not engage in any activities that could result in severe injury should you have a seizure. Specifically, do not drive a vehicle, go into a body of water, take a bath, climb ladders, or operate any heavy machinery until you have been cleared by your neurologist. Please return to the ED immediately if you have multiple seizures close together, develop a severe headache, weakness, numbness, difficulty speaking, have a seizure in which you do not return to normal within 1 hour of the seizure, or have any other symptoms that are concerning to you. Your shoulder was dislocated today. This was reduced. Please wear the sling as needed for comfort. Follow-up with orthopedic surgery if you have recurrent shoulder dislocations. You should continue to take anti-inflammatories such as ibuprofen 600 mg every 6 hours for pain. Continue to apply ice to the area is much your able. Please return immediately if you develop weakness, numbness , spreading redness from the area, or any other symptoms that are concerning to you. Prescriptions: Acetazolamide [Diamox 250 mg Tab] 250 mg PO Q12 #60 tab Topiramate [Topamax 25 mg Tablet] 25 mg PO BID #60 tab
[2017-06-05] MEDS ORDERED: LORAZEPAM INJ 2 MG/1 ML VIAL ONE (20:02)
[2017-06-05] MEDS ORDERED: TOPIRAMATE 25 MG TABLET PO ONE (20:32)
--- NOTE | 2017-06-05 21:12 | RADIOLOGY REPORT (SQ) ---
EXAM DESCRIPTION: SHOULDER RIGHT 2 OR MORE VIEWS COMPLETED DATE/TIME: 06/05/2017 8:41 pm REASON FOR STUDY: right shoulder dislocation COMPARISON: 04/05/2017 NUMBER OF VIEWS: Three views. TECHNIQUE: Internal rotation, external rotation, and Y view images acquired of the right shoulder. LIMITATIONS: None. FINDINGS: MINERALIZATION: Normal. BONES: Anterior-inferior glenohumeral dislocation. No fracture identified. VISUALIZED LUNGS AND RIBS: No pneumothorax. No rib fracture. SOFT TISSUES: No radiopaque foreign body. OTHER: No other significant finding. IMPRESSION: Anterior-inferior glenohumeral dislocation. TECHNICAL DOCUMENTATION: JOB ID: [id number] [place]-72 2010 [employer]- All Rights Reserved
--- NOTE | 2017-06-05 21:40 | RADIOLOGY REPORT (SQ) ---
EXAM DESCRIPTION: SHOULDER RIGHT 1 VIEW COMPLETED DATE/TIME: 06/05/2017 9:26 pm REASON FOR STUDY: post-reduction COMPARISON: Earlier exam same date NUMBER OF VIEWS: 1 TECHNIQUE: Frontal images acquired of the right shoulder. LIMITATIONS: None. FINDINGS: Glenohumeral relationship appears restored. No fracture identified. OTHER: No other significant finding. IMPRESSION: Glenohumeral relationship appears restored. No fracture identified. TECHNICAL DOCUMENTATION: JOB ID: [id number] [place]-72 2010 [employer]- All Rights Reserved
[2017-06-05] MEDS ORDERED: ACETAMINOPHEN 325 MG TABLET PO ONE (22:50)
[2017-06-05] MEDS ORDERED: ACETAZOLAMIDE 250 MG TABLET PO ONE (23:34)
[2017-06-05 23:43] VITALS: BP 163/101
--- NOTE | 2017-06-07 11:55 | EKG REPORT ---
SEVERITY:- ABNORMAL ECG - SINUS TACHYCARDIA NONSPECIFIC T ABNORMALITIES, DIFFUSE LEADS : Confirmed by: Rita Garibay MD 07-Jun-2017 11:55:02
== END 2017-06-05 23:40 | disposition home or self-care (01) ==
LOC: ER 18:58
PROC: 0RSJXZZ Reposition Right Shoulder Joint, External Approach (ICD-10-PCS; principal; 2017-06-05)
DX: S43.014A Anterior dislocation of right humerus, initial encounter (principal); G40.909 Epilepsy, unspecified, not intractable, without status epilepticus; X58.XXXA Exposure to other specified factors, initial encounter; I10 Essential (primary) hypertension; Z87.442 Personal history of urinary calculi
CPT/HCPCS: 93005; 99285; 99152; 36415; 82962; 85025; 73020; 73030; 93010; 23650; L3650; J3490 ×3

== ENCOUNTER 2017-07-19 16:40 | Inpatient (IN) | payer OTHER, MEDICAID ==
--- NOTE | 2017-07-19 18:02 | RADIOLOGY REPORT (SQ) ---
EXAM DESCRIPTION: SHOULDER RIGHT 2 OR MORE VIEWS COMPLETED DATE/TIME: 07/19/2017 5:48 pm REASON FOR STUDY: Dislocation right shoulder COMPARISON: 06/05/2017 NUMBER OF VIEWS: Two views. TECHNIQUE: AP and scapular Y-view images acquired of the right shoulder. LIMITATIONS: None. FINDINGS: MINERALIZATION: Normal. BONES: There is an anterior dislocation of the glenohumeral joint. No definite fractures noted on th is exam. JOINTS: Anterior dislocation VISUALIZED LUNGS AND RIBS: No pneumothorax. No rib fracture. SOFT TISSUES: No radiopaque foreign body. OTHER: Again noted are 2 screws within the glenoid. No significant change when compared to prior exa m given differences in technique. IMPRESSION: Anterior dislocation of the glenohumeral joint. TECHNICAL DOCUMENTATION: JOB ID: [id number] [employer]- All Rights Reserved Reading location - IP/workstation name: [email or web address]
[2017-07-19] MEDS ORDERED: LORAZEPAM INJ 2 MG/1 ML VIAL IV ONE (19:05)
[2017-07-19] MEDS ORDERED: LORAZEPAM INJ 2 MG/1 ML VIAL ONE (19:06)
[2017-07-19] MEDS ORDERED: ONDANSETRON HCL INJ/PF 4 MG/2 ML SDV ONE (19:07)
[2017-07-19] MEDS ORDERED: ONDANSETRON HCL INJ/PF 4 MG/2 ML SDV IV ONE ×2 (19:10→19:54)
[2017-07-19] MEDS ORDERED: PROPOFOL INJ 200 MG/20 ML VIAL IV ONE (19:25)
--- NOTE | 2017-07-19 19:51 | ER Document Report ---
ED General - General Chief Complaint: Seizure Stated Complaint: POSSIBLE SEIZURE Time Seen by Provider: 07/19/17 17:15 Notes: Patient is here because she is having seizures today. She has had [address] to the emergency department. She has a history of pseudotumor cerebri and a seizure disorder for which she takes Topamax and Diamox. She has been taking her medications. She has been sick lately and says she has had some blurred vision and just not feeling normal. Her last seizures were about a couple of months ago. She says that she is having some nausea and vomiting and diarrhea. Think she may have had some fever, although she does not have one here at triage. Also says her throat hurts. Patient has a primary care provider, Dr. Brown, and she said that he is trying to arrange for her to be followed up by a new neurologist because she just moved to [place] and was seeing a neurologist in [place]. In the past , patient has been felt to be having pseudoseizures, but not definitely excluding true seizures, as well. Patient also has a problem with recurrent, chronic right shoulder dislocation which is occurred many times. She has had surgery on that shoulder without success. There is a likelihood that the patient is able to dislocate her shoulder and relocated at will. TRAVEL OUTSIDE OF THE [place] IN LAST 30 DAYS: No - Related Data Allergies/Adverse Reactions: rocuronium Allergy (Severe, Verified 07/19/17 16:45) Cardiac arrest clonidine [Clonidine] Allergy (Verified 07/19/17 16:45) droperidol Allergy (Verified 07/19/17 16:45) etomidate [Etomidate] Allergy (Verified 07/19/17 16:45) lisinopril Allergy (Verified 07/19/17 16:45) Facial swelling metoclopramide HCl [From Reglan] Allergy (Verified 07/19/17 16:45) Past Medical History - Social History Smoking Status: Unknown if Ever Smoked Chew tobacco use (# tins/day): No Family History: Reviewed & Not Pertinent Patient has suicidal ideation: No Patient has homicidal ideation: No - Past Medical History Cardiac Medical History: Reports: Hx Hypertension Denies: Hx Coronary Artery Disease, Hx Heart Attack Pulmonary Medical History: Reports: Hx Pneumonia Denies: Hx Asthma, Hx Bronchitis, Hx COPD Neurological Medical History: Reports: Hx Seizures. Denies: Hx Cerebrovascular Accident Renal/ Medical History: Reports: Hx Kidney Stones Musculoskeltal Medical History: Denies Hx Arthritis Psychiatric Medical History: Denies: Hx Depression Past Surgical History: Reports: Hx Section, Hx Neurologic Surgery - intercranial shunt, Hx Orthopedic Surgery - Patient is status post a right Bankart repair in [facility] [place] - Immunizations Hx Diphtheria, Pertussis, Tetanus Vaccination: Yes Review of Systems - Review of Systems Notes: REVIEW OF SYSTEMS: CONSTITUTIONAL : Says she has some fever. Afebrile in triage. EENT: Denies eye, ear, nose or mouth or throat pain or other symptoms. CARDIOVASCULAR: Denies chest pain. RESPIRATORY: Denies cough, chest congestion, or shortness of breath. GASTROINTESTINAL: Denies abdominal pain but has had nausea, vomiting, or diarrhea. GENITOURINARY: Denies difficulty or painful urinating, urinary frequency, blood in urine. MUSCULOSKELETAL: Denies back or neck pain. Denies joint pain or swelling. SKIN: Denies rash or skin lesions. NEUROLOGICAL: Denies LOC or altered mental status. Has some headache. Denies sensory loss or motor deficits. ALL OTHER SYSTEMS REVIEWED AND NEGATIVE. Addendum, 07/20/2017, 9:31 AM: EENT patient does complaint of sore throat. Musculoskeletal: Patient does complain of pain in the right shoulder joint. Neurologic: See HPI. Patient has had seizures. Physical Exam - Vital signs Vitals: Temp Pulse Resp BP Pulse Ox 99.8 F 107 H 24 H 155/112 H 100 07/19/17 16:50 07/19/17 16:50 07/19/17 16:50 07/19/17 16:50 07/19/17 16:50 - Notes Notes: PHYSICAL EXAMINATION: GENERAL: Well-appearing, in no acute distress. HEAD: Atraumatic, normocephalic. EYES: Pupils equal round and reactive to light, extraocular movements intact. Unable to see the disc well enough to ascertain if any papilledema. ENT: oropharynx with some erythema of tonsils that appear to be slightly enlarged, but without exudates. Moist mucous membranes. NECK: Normal range of motion, supple. LUNGS: Breath sounds clear and equal bilaterally. HEART: Regular rate and rhythm without murmurs. ABDOMEN: Soft, nontender. No guarding or rebound. No masses. BACK: No tenderness throughout entire back. EXTREMITIES: Patient is holding her right shoulder very still and with a prominence anteriorly in the region of the head of the humerus, there may be a dislocation. All other joints normal range of motion without pain. NEUROLOGICAL: Normal speech. Normal sensory, motor, and reflex exams. Awake, alert, and oriented x3. PSYCH: Normal mood, normal affect. SKIN: Warm, dry, no rashes. Course - Re-evaluation Re-evalutation: 07/19/17 20:47 During her stay in the department, patient had at least 4 episodes that were called seizures. I only got to witness 1, the one about 8:30 PM and that one looked like a legitimate seizure with snorting respirations, diaphoresis, and inability to distract with other activity or maneuvers. I dropped her forearm and hand over her face and it hit in the forehead area. I spoke with Dr. Lozano, who is on-call for this patient's primary care provider, Dr. Brown, and patient will be admitted to telemetry. Keppra loading dose is been started. - Vital Signs Vital signs: Temp Pulse Resp BP Pulse Ox 97.8 F 91 24 H 132/94 H 99 07/20/17 07:51 07/20/17 07:51 07/20/17 07:51 07/20/17 07:51 07/20/17 07:51 - Laboratory Result Diagrams: 07/19/17 19:00 07/19/17 19:00 Laboratory results interpreted by me: 07/19/17 07/19/17 19:00 19:00 RDW 14.4 H Total Bilirubin < 0.1 L - Diagnostic Test Radiology results interpreted by me: 07/19/17 20:15 Post reduction x-ray felt to be back in place by radiologist reading. Procedures - Conscious Sedation Conscious sedation Consent obtained: Yes Indication: Dislocation right shoulder Prior complications: Procedural sedation Airway Evaluation: Normal anatomy, Other - Somewhat enlarged tonsils with erythema. No airway impingement. Mallampati Classification: Class 1 Used during procedure: Suction available, IV access obtained, electronics inspector on pt. Medications administered: Fentanyl, Diprivan Reversal agents: None I personally performed/intraservice time: Procedure, 30 min or less Complications: No - Joint Reduction/Fracture Care Right Shoulder Consent obtained: Yes Conscious sedation: Yes Pre-procedure NV exam: Yes Post-procedure NV exam: Yes Post-reduction x-ray: Joint reduced Reduction attempts: 1 Complications: No Critical Care Note - Critical Care Note Total time excluding time spent on procedures (mins): 40 Discharge - Discharge Clinical Impression: Shoulder dislocation, Uncontrolled seizures Condition: Stable Disposition: ADMITTED INPATIENT Admitting Provider: [facility] Admitted: Telemetry
[2017-07-19] MEDS ORDERED: ACETAZOLAMIDE 500 MG CAPSULE.SA PO ONE (19:56)
[2017-07-19 20:14] LABS: ABSOLUTE BASOPHILS # (AUTO) 0.1 10^3/uL (0.0-0.2); ABSOLUTE EOSINOPHILS # (AUTO) 0.2 10^3/uL (0.0-0.6); ABSOLUTE LYMPHOCYTES (AUTO) 2.3 10^3/uL (0.5-4.7); ABSOLUTE MONOCYTES (AUTO) 0.6 10^3/uL (0.1-1.4); ABSOLUTE NEUT (AUTO) 5.3 10^3/uL (1.7-8.2); BASOPHILS % (AUTO) 0.8 % (0-2); EOSINOPHILS % (AUTO) 1.9 % (0-6); HEMATOCRIT 37.3 % (36.0-47.0); HEMOGLOBIN 12.6 g/dL (12.0-15.5); LYMPHOCYTES % (AUTO) 27.7 % (13-45); MEAN CORPUSCULAR HEMOGLOBIN 29.4 pg (27.0-33.4); MEAN CORPUSCULAR HGB CONC 33.8 g/dL (32.0-36.0); MEAN CORPUSCULAR VOLUME 87 fl (80-97); MONOCYTES % (AUTO) 6.6 % (3-13); PLATELET COUNT 315 10^3/uL (150-450); RED BLOOD COUNT 4.29 10^6/uL (3.72-5.28); RED CELL DISTRIBUTION WIDTH 14.4 % (11.5-14.0); TOTAL CELLS COUNTED % (AUTO) 100 %; WHITE BLOOD COUNT 8.4 10^3/uL (4.0-10.5)
[2017-07-19 20:19] LABS: ALANINE AMINOTRANSFERASE 31 U/L (9-52); ALBUMIN 4.4 g/dL (3.5-5.0); ALKALINE PHOSPHATASE 94 U/L (38-126); ANION GAP 14 (5-19); ASPARTATE AMINO TRANSFERASE 21 U/L (14-36); BLOOD UREA NITROGEN 12 mg/dL (7-20); CALCIUM 9.8 mg/dL (8.4-10.2); CARBON DIOXIDE 23 mmol/L (22-30); CHLORIDE 107 mmol/L (98-107); GLUCOSE 95 mg/dL (75-110); POTASSIUM 3.8 mmol/L (3.6-5.0); SODIUM 144.3 mmol/L (137-145); TOTAL PROTEIN 7.7 g/dL (6.3-8.2)
[2017-07-19 20:20] LABS: BILIRUBIN,TOTAL < 0.1 mg/dL (0.2-1.3)
[2017-07-19] MEDS ORDERED: LEVETIRACETAM 1500 MG/NACL-ISO 1,500 MG/100 ML RTUPB IV ONE (20:26)
[2017-07-19] MEDS ORDERED: LEVETIRACETAM 500 MG/NACL-ISO 500 MG/100 ML RTUPB IV ONE (20:30)
[2017-07-19] MEDS ORDERED: FENTANYL CITRATE INJ/PF 250 MCG/5 ML AMPULE IV ONE (20:57)
--- NOTE | 2017-07-19 20:57 | RADIOLOGY REPORT (SQ) ---
EXAM DESCRIPTION: SHOULDER RIGHT 2 OR MORE VIEWS COMPLETED DATE/TIME: 07/19/2017 8:36 pm REASON FOR STUDY: POST REDUC COMPARISON: Pre reduction films from earlier today. NUMBER OF VIEWS: Two views, AP and scapular Y. LIMITATIONS: Limited scapular Y-view. FINDINGS: Chronic postoperative changes. AP view suggests the dislocation has been reduced. Scapul ar Y-view is somewhat limited. OTHER: No other significant finding. IMPRESSION: Suspect reduced shoulder dislocation. This was discussed with Dr. Crowe at the time o f study. TECHNICAL DOCUMENTATION: JOB ID: [id number] Reading location - IP/workstation name: [email or web address] PANELBOARD [email or web address]
[2017-07-19] MEDS ORDERED: LEVETIRACETAM INJ/PF 500 MG/5 ML SDV IV ONE (21:05)
[2017-07-19] MEDS ORDERED: LEVETIRACETAM 500 MG TABLET PO SCH (22:00)
[2017-07-19] MEDS ORDERED: FENTANYL CITRATE INJ/PF 100 MCG/2 ML AMPUL IV ONE (22:45)
[2017-07-19] MEDS ORDERED: PHENYTOIN SODIUM 1,000 MG in NORMAL SALINE 250 ML IV ONE (23:45)
[2017-07-20] MEDS ORDERED: PHENYTOIN SODIUM INJ/PF 250 MG/5 ML SDV ONE (00:11)
[2017-07-20] MEDS ORDERED: HYDROCODONE/ACETAMINOPHEN 5-325 MG TABLET PO PRN (01:17)
[2017-07-20] MEDS ORDERED: LACOSAMIDE INJ/PF 200 MG/20 ML SDV IV ONE ×2 (02:15→16:00)
--- NOTE | 2017-07-20 03:38 | RADIOLOGY REPORT (SQ) ---
EXAM DESCRIPTION: SHOULDER RIGHT 2 OR MORE VIEWS CLINICAL HISTORY: Shoulder displacement w/ seizures COMPARISON: 07/19/2017 FINDINGS: 2 views of the shoulder. Anterior shoulder dislocation. Postoperative screws are unchanged. No right-sided rib fracture or right-sided pneumothorax. IMPRESSION: 1. Acute anterior right shoulder dislocation
[2017-07-20 04:25] LABS: APPEARANCE,URINE SLIGHTLY-CLOUDY; BILIRUBIN,URINE NEGATIVE (NEGATIVE); COLOR,URINE YELLOW; GLUCOSE, URINE NEGATIVE (NEGATIVE); KETONES,URINE NEGATIVE (NEGATIVE); LEUKOCYTE ESTERASE,URINE NEGATIVE (NEGATIVE); NITRITE,URINE NEGATIVE (NEGATIVE); PROTEIN,URINE NEGATIVE (NEGATIVE); URINE SPECIFIC GRAVITY 1.024; UROBILINOGEN,URINE NEGATIVE mg/dL (<2.0)
--- NOTE | 2017-07-20 06:40 | PDOC CONSULTATION ---
Consultation Consult Date: 07/20/17 Consult reason:: Right shoulder dislocation, recurrent History of Present Illness Admission Date/PCP: 07/19/17 21:19 History of Present Illness: JAYDA RAMEY is a 32 year old female Patient is a 32-year-old black female with a seizure disorder and long-standing right shoulder instability. She is being treated by Dr. Gary in [place]. She presented to the emergency room status post seizures with a right shoulder dislocation. Is reduced in the emergency room and the patient was hospitalized for seizure control. On the floor the patient was noted again to have right shoulder pain and x-rays demonstrated a recurrent dislocation. Orthopedics is consulted for the shoulder instability. Past Medical History Cardiac Medical History: Reports: Hypertension Denies: Coronary Artery Disease, Myocardial Infarction Pulmonary Medical History: Reports: Pneumonia Denies: Asthma, Bronchitis, Chronic Obstructive Pulmonary Disease (COPD) Neurological Medical History: Reports: Seizures Musculoskeltal Medical History: Denies: Arthritis Psychiatric Medical History: Denies: Depression Hematology: Denies: Anemia Past Surgical History Past Surgical History: Reports: Section, Orthopedic Surgery - Patient is status post a right Bankart repair in [facility] Social History Information Source: Patient, [facility] Records Smoking Status: Current Every Day Smoker Frequency of Alcohol Use: Social Hx Recreational Drug Use: No Drugs: None Hx Prescription Drug Abuse: No - Advance Directive Resuscitation Status: Full Code Family History Family History: Reviewed & Not Pertinent Parental Family History Reviewed: No Children Family History Reviewed: No Sibling(s) Family History Reviewed.: No Medication/Allergy Home Medications: Acetazolamide [Diamox 250 mg Tab] 250 mg PO Q12 02/24/17 Topiramate [Topamax 25 mg Tablet] 25 mg PO Q12 02/24/17 Acetazolamide [Diamox 250 mg Tab] 250 mg PO Q12 #60 tab 06/05/17 Topiramate [Topamax 25 mg Tablet] 25 mg PO BID #60 tab 06/05/17 Allergies/Adverse Reactions: rocuronium Allergy (Severe, Verified 07/19/17 16:45) Cardiac arrest clonidine [Clonidine] Allergy (Verified 07/19/17 16:45) droperidol Allergy (Verified 07/19/17 16:45) etomidate [Etomidate] Allergy (Verified 07/19/17 16:45) lisinopril Allergy (Verified 07/19/17 16:45) Facial swelling metoclopramide HCl [From Reglan] Allergy (Verified 07/19/17 16:45) Review of Systems All systems: as per PMH Physical Exam Vital Signs: Temp Pulse Resp BP Pulse Ox 36.6 C 91 20 110/80 100 07/19/17 21:31 07/20/17 02:00 07/19/17 21:31 07/19/17 21:31 07/19/17 21:16 General appearance: PRESENT: obese, severe distress Head exam: PRESENT: normocephalic Respiratory exam: PRESENT: unlabored Cardiovascular exam: PRESENT: tachycardia Pulses: PRESENT: normal radial pulses Vascular exam: PRESENT: normal capillary refill GI/Abdominal exam: PRESENT: soft Rectal exam: PRESENT: deferred Extremities exam: PRESENT: other - Right upper extremity immobilized in a shoulder immobilizer. Is a clear topical anatomy deformity. Multiple well- healed arthroscopic portals. Distal neurovascular examination of the hand is intact. Neurological exam: PRESENT: alert, awake, oriented to person, oriented to place , oriented to time, oriented to situation. ABSENT: motor sensory deficit Psychiatric exam: PRESENT: appropriate affect, normal mood. ABSENT: homicidal ideation, suicidal ideation Skin exam: PRESENT: dry, intact, warm. ABSENT: cyanosis, rash Results Laboratory Results: 07/20/17 04:00 Urine Color YELLOW Urine Appearance SLIGHTLY-CLOUDY Urine pH 6.0 Ur Specific Ida 1.024 Urine Protein NEGATIVE Urine Glucose (UA) NEGATIVE Urine Ketones NEGATIVE Urine Blood NEGATIVE Urine Nitrite NEGATIVE Ur Leukocyte Esterase NEGATIVE Urine WBC (Auto) 1 Urine RBC (Auto) 3 Impressions: Shoulder X-Ray 07/20/17 00:00 IMPRESSION: 1. Acute anterior right shoulder dislocation Status: Imported from PACS Assessment & Plan - Diagnosis (1) Shoulder dislocation Is this a current diagnosis for this admission?: Yes Plan: 32-year-old black female with recurrent right shoulder instability now currently dislocated and significant discomfort. Plan will be for closed reduction under a conscious sedation - Time Time Spent: 30 to 50 Minutes Anticipated discharge: Home Within: Other
[2017-07-20] MEDS ORDERED: DEXTROSE 50%-WATER 25 GM/50 ML DISP.SYRIN IV PRN ×2 (07:58)
[2017-07-20] MEDS ORDERED: DEXTROSE 40% GEL 15 GM TUBE PO PRN ×2 (07:58)
[2017-07-20] MEDS ORDERED: GLUCAGON,HUMAN RECOMB 1 MG INJ SUBCUT PRN (07:58)
[2017-07-20] MEDS ORDERED: LORAZEPAM INJ 2 MG/1 ML VIAL IV PRN (08:59)
[2017-07-20] MEDS ORDERED: FENTANYL CITRATE INJ/PF 100 MCG/2 ML AMPUL ONE ×2 (09:04→11:41)
[2017-07-20] MEDS ORDERED: LIDOCAINE 2% INJ-PF (20 MG/ML) 10 ML AMPUL ONE (09:04)
[2017-07-20] MEDS ORDERED: MIDAZOLAM 2 MG/2 ML INJ ONE ×2 (09:04→09:05)
[2017-07-20] MEDS ORDERED: PROPOFOL INJ 200 MG/20 ML VIAL IV ONE (09:05)
[2017-07-20] MEDS ORDERED: MORPHINE SULFATE 10 MG/ML INJ IV PRN (09:53)
[2017-07-20] MEDS ORDERED: MEPERIDINE HCL/PF INJ 25 MG/1 ML DISP.SYRIN IV PRN (09:53)
[2017-07-20] MEDS ORDERED: FENTANYL CITRATE INJ/PF 100 MCG/2 ML AMPUL IV PRN ×3 (09:53)
[2017-07-20] MEDS ORDERED: DIPHENHYDRAMINE HCL 50 MG/ML VIAL IV PRN (09:53)
[2017-07-20] MEDS ORDERED: OXYCODONE-ACETAMINOPHEN 5-325 MG TABLET PO PRN ×2 (09:53)
[2017-07-20] MEDS ORDERED: PROMETHAZINE HCL INJ 25 MG/1 ML VIAL IV PRN ×2 (09:53)
--- NOTE | 2017-07-20 09:57 | Operative Report ---
Operative Report DATE OF SURGERY: 07/20/17 PREOPERATIVE DIAGNOSIS: Recurrent right shoulder dislocation OPERATION: Closed reduction right shoulder dislocation application of an abduction pillow SURGEON: DURAN BAKER ANESTHESIA: Moderate Sedation ESTIMATED BLOOD LOSS: 0 PROCEDURE: With the patient in a beachchair position on the operating table the right upper extremity is extended and abducted with posteriorly directed pressure on the humeral head. It slips into place. When the arm is externally rotated and extended it again becomes dislocated with minimal effort. At this point the arm is abducted and extended placed across the chest and abduction pillow and the patient's return to the PACU in satisfactory condition.
[2017-07-20] MEDS ORDERED: LORAZEPAM INJ 2 MG/1 ML VIAL ONE ×2 (10:29→11:49)
[2017-07-20] MEDS: LEVETIRACETAM 500 MG/NACL-ISO 500 MG/100 ML RTUPB IV SCH ×2 (10:37→22:50)
--- NOTE | 2017-07-20 10:49 | OPERATIVE REPORT E ---
Operative Report NAME: JAYDA RAMEY : 1985 AGE: 32Y DATE OF SURGERY: 07/20/2017 ROOM: 603 PREOPERATIVE DIAGNOSIS: POOR VEINS FOR IV ACCESS. POSTOPERATIVE DIAGNOSIS: POOR VEINS FOR IV ACCESS. OPERATION: Placement of left internal jugular vein, triple lumen catheter under ultrasound guidance. SURGEON: RANDY LEONARD M.D. ANESTHESIA: Local. INDICATIONS: This is a 30-year-old female who is in the OR for reduction of right shoulder dislocation. Patient does not have any IV placed because of poor veins. A central line is being placed. DESCRIPTION OF PROCEDURE: Patient was placed in the slight Trendelenburg position and the left neck and infraclavicular area were then prepped and draped in the usual sterile fashion. Local anesthesia infiltrated around the sternal and clavicular head of the sternocleidomastoid muscle. With the use of ultrasound, the internal jugular vein was then identified. Next, the left internal jugular vein was then punctured and a guidewire passed through the needle into the direction of the superior vena cava. The needle was removed and insertion site dilated. A triple lumen catheter placed over the guidewire and threaded to a distance of about 8-10 cm. The guidewire was removed and all the port sites aspirated, bled easily, and instilled saline easily. Next, the catheter was then anchored to the skin with 3-0 silk and a Biopatch placed on the insertion site. A transparent sterile dressing was then placed over the Biopatch and catheter. The patient tolerated the procedure well. DICTATING PHYSICIAN: RANDY LEONARD M.D. [id number] PHY#: [id number] ID: [id number] JOB#: [id number] ACCT: [id number] cc:RANDY LEONARD M.D. >
[2017-07-20] MEDS: PHENYTOIN SODIUM INJ/PF 100 MG/2 ML SDV IV SCH ×2 (10:52→22:06)
[2017-07-20] MEDS: TOPIRAMATE 25 MG TABLET PO SCH ×2 (11:55→17:54)
[2017-07-20] MEDS: ENOXAPARIN SODIUM INJ 30 MG/0.3 ML DISP.SYRIN SUBCUT SCH (11:55)
[2017-07-20] MEDS: ACETAZOLAMIDE 250 MG TABLET PO SCH ×2 (11:55→17:53)
[2017-07-20] MEDS: LORAZEPAM INJ 2 MG/1 ML VIAL IV PRN ×4 (11:56→17:54)
--- NOTE | 2017-07-20 12:28 | RADIOLOGY REPORT (SQ) ---
EXAM DESCRIPTION: CHEST SINGLE VIEW COMPLETED DATE/TIME: 07/20/2017 12:16 pm REASON FOR STUDY: Post Central Line Placement COMPARISON: 12/14/2014. EXAM PARAMETERS: NUMBER OF VIEWS: One view. TECHNIQUE: Single frontal radiographic view of the chest acquired. RADIATION DOSE: NA LIMITATIONS: None. FINDINGS: LUNGS AND PLEURA: Limited lung volumes. No opacities, masses or pneumothorax. No pleural effusion. MEDIASTINUM AND HILAR STRUCTURES: No masses. Contour normal. HEART AND VASCULAR STRUCTURES: Heart normal in size. Normal vasculature. BONES: No acute findings. HARDWARE: Status post placement of left internal jugular vein central line, tip in the region of the right atrium. OTHER: No other significant finding. IMPRESSION: 1 Since the previous examination dated 12/14/2014, interval placement of left central veno us line. No evidence of pneumothorax. 2. Low lung volumes limits examination. No acute pulmonary consolidation. TECHNICAL DOCUMENTATION: JOB ID: [id number] [employer]- All Rights Reserved Reading location - IP/workstation name: [email or web address]
--- NOTE | 2017-07-20 13:18 | EKG REPORT ---
SEVERITY:- BORDERLINE ECG - SINUS RHYTHM BORDERLINE T ABNORMALITIES, DIFFUSE LEADS : Confirmed by: Mehdi Catalan MD 20-Jul-2017 13:17:35
[2017-07-20] MEDS ORDERED: LACOSAMIDE 50 MG TABLET PO ONE (14:00)
--- NOTE | 2017-07-20 15:03 | RADIOLOGY REPORT (SQ) ---
EXAM DESCRIPTION: NO CHG FLUORO; SHOULDER RIGHT 1 VIEW COMPLETED DATE/TIME: 07/20/2017 10:19 am REASON FOR STUDY: CLOSED REDUCTION RT SHOULDER ASST WITH FLUORO IN OR COMPARISON: None. FLUOROSCOPY TIME: Less than 1 minute. 1 images saved to PACS. TECHNIQUE: Intra-operative images acquired during surgical procedure to evaluate progress. NUMBER OF IMAGES: 1 image. LIMITATIONS: None. FINDINGS: Image of the shoulder acquired during procedure. IMPRESSION: IMAGE(S) OBTAINED DURING PROCEDURE. COMMENT: Quality ID 145: Final reports for procedures using fluoroscopy that document radiation exp osure indices, or exposure time and number of fluorographic images (if radiation exposure indices are not available) Please consult full operative report of the attending physician for description of the procedure. TECHNICAL DOCUMENTATION: JOB ID: [id number] [employer]- All Rights Reserved Reading location - IP/workstation name: [email or web address]
--- NOTE | 2017-07-20 15:03 | RADIOLOGY REPORT (SQ) ---
EXAM DESCRIPTION: NO CHG FLUORO; SHOULDER RIGHT 1 VIEW COMPLETED DATE/TIME: 07/20/2017 10:19 am REASON FOR STUDY: CLOSED REDUCTION RT SHOULDER ASST WITH FLUORO IN OR COMPARISON: None. FLUOROSCOPY TIME: Less than 1 minute. 1 images saved to PACS. TECHNIQUE: Intra-operative images acquired during surgical procedure to evaluate progress. NUMBER OF IMAGES: 1 image. LIMITATIONS: None. FINDINGS: Image of the shoulder acquired during procedure. IMPRESSION: IMAGE(S) OBTAINED DURING PROCEDURE. COMMENT: Quality ID 145: Final reports for procedures using fluoroscopy that document radiation exp osure indices, or exposure time and number of fluorographic images (if radiation exposure indices are not available) Please consult full operative report of the attending physician for description of the procedure. TECHNICAL DOCUMENTATION: JOB ID: [id number] [employer]- All Rights Reserved Reading location - IP/workstation name: [email or web address]
[2017-07-20] MEDS: FENTANYL CITRATE INJ/PF 100 MCG/2 ML AMPUL IV PRN ×2 (15:15→19:55)
--- NOTE | 2017-07-20 16:40 | RADIOLOGY REPORT (SQ) ---
EXAM DESCRIPTION: LUMBAR PUNCTURE COMPLETED DATE/TIME: 07/20/2017 4:14 pm REASON FOR STUDY: pseudotumor cerbri COMPARISON: None. FLUOROSCOPY TIME: 40 seconds. 1 images saved to PACS. TECHNIQUE: Fluoroscopic guided lumbar puncture with opening and closing pressures. LIMITATIONS: None. PROCEDURE: After written consent and assessment were obtained, the patient was brought into the fluo roscopy room and placed prone on the table. The patient's lower back was prepped in a sterile fashio n and an entry site was selected under live fluoroscopic guidance. The entry site was anesthetized wi th 1% lidocaine. The spinal needle was advanced through the skin and into the thecal sac at the leve l of L5-S1. An opening pressure of 27 cm water units was obtained. After approximately 30ml of CSF w as drained, a closing pressure of 15 cm water units was obtained. The needle was removed and a steril e bandage was placed of the site. Specimens were sent to the lab for testing. A fluoroscopic spot nilesh ge was saved to PACS confirming level access. FINDINGS: Clear CSF IMPRESSION: Lumbar puncture under fluoroscopy. No immediate complication. COMMENT: Patient medication list reviewed:Yes- Quality ID# [id number]:Eligible professional attests to docu menting in the medical record they obtained, updated, or reviewed the patient's current medications.. Quality ID 145: Final reports for procedures using fluoroscopy that document radiation exposure lexie brayden, or exposure time and number of fluorographic images (if radiation exposure indices are not avail able) TECHNICAL DOCUMENTATION: JOB ID: [id number] [employer]- All Rights Reserved Reading location - IP/workstation name: [email or web address]
[2017-07-20 17:04] LABS: APPEARANCE ALL TUBES CLEAR; COLOR ALL TUBES COLORLESS; CSF TUBE NUMBER 1
[2017-07-20 17:05] LABS: RED BLOOD CELL,CSF 120 /uL (0-10)
[2017-07-20 17:06] LABS: WHITE BLOOD CELL,CSF 2 /uL (0-5)
[2017-07-20 17:06] LABS: CSF TUBE NUMBER 4
[2017-07-20 17:07] LABS: APPEARANCE ALL TUBES CLEAR; COLOR ALL TUBES COLORLESS; RED BLOOD CELL,CSF 2 /uL (0-10); WHITE BLOOD CELL,CSF 0 /uL (0-5)
[2017-07-20 17:12] LABS: GLUCOSE,CSF 45 mg/dL (40-70); PROTEIN,CSF 28 mg/dL (12-60)
[2017-07-20 17:29] LABS: H. INFLUENZAE TYPE B AG NEGATIVE (NEGATIVE); S. PNEUMONIAE AG NEGATIVE (NEGATIVE); STREP. GROUP B AG NEGATIVE (NEGATIVE)
--- NOTE | 2017-07-20 19:02 | PDOC H&P ---
History of Present Illness Admission Date/PCP: 07/20/17 08:51 History of Present Illness: Patient is 32 years old female that is due to establish with my practice on who presented to the ED due to recurrent seizure activities. Patient has longstanding history of pseudotumor cerebri s/p shunt and venous stent placement for management of IICH. She reported compliance with her medication until recently when she developed nausea and vomiting. She reported associated fever, sore throat, and diarrhea. Her hospital stay so far has been significant for recurrent seizure activities despite administration loading dose of Dilantin and Keppra Intravenously. Patient have received several intravenous doses of Lorazepam for acute seizure management. She received a dose of Vimpat due to continue seizure activity. Other significant issue upon presentation was recurrent right shoulder joint dislocation with acute pain. She related recurrent dislocation to her seizure activities. She had right shoulder surgery to manage her shoulder dislocation without success. She will be admitted for further management of her seizure and right shoulder joint dislocation with acute pain. Her other morbidities include Hypertension and Kidney Stones. Past Medical History Cardiac Medical History: Reports: Hypertension Denies: Coronary Artery Disease, Myocardial Infarction Pulmonary Medical History: Reports: Pneumonia Denies: Asthma, Bronchitis, Chronic Obstructive Pulmonary Disease (COPD) Neurological Medical History: Reports: Seizures Musculoskeltal Medical History: Denies: Arthritis Psychiatric Medical History: Denies: Depression Hematology: Denies: Anemia Past Surgical History Past Surgical History: Reports: Section, Orthopedic Surgery - Patient is status post a right Bankart repair in [facility] Social History Smoking Status: Unknown if Ever Smoked Frequency of Alcohol Use: Social Hx Recreational Drug Use: No Drugs: None Hx Prescription Drug Abuse: No - Advance Directive Resuscitation Status: Full Code Family History Family History: Reviewed & Not Pertinent Parental Family History Reviewed: Yes Children Family History Reviewed: Yes Sibling(s) Family History Reviewed.: Yes Medication/Allergy Home Medications: Acetazolamide [Diamox 250 mg Tab] 250 mg PO BID 07/20/17 Topiramate [Topamax 25 mg Tablet] 25 mg PO BID 07/20/17 Allergies/Adverse Reactions: rocuronium Allergy (Severe, Verified 07/19/17 16:45) Cardiac arrest clonidine [Clonidine] Allergy (Verified 07/19/17 16:45) droperidol Allergy (Verified 07/19/17 16:45) etomidate [Etomidate] Allergy (Verified 07/19/17 16:45) lisinopril Allergy (Verified 07/19/17 16:45) Facial swelling metoclopramide HCl [From Reglan] Allergy (Verified 07/19/17 16:45) Review of Systems All systems: reviewed and no additional remarkable complaints except as stated Constitutional: PRESENT: headache(s) Eyes: PRESENT: visual disturbances Nose, Mouth, and Throat: PRESENT: headache(s) Cardiovascular: ABSENT: chest pain, dyspnea on exertion, edema, orthropnea, palpitations Respiratory: ABSENT: cough, hemoptysis Gastrointestinal: PRESENT: diarrhea, nausea, vomiting. ABSENT: as per HPI, abdominal pain, bloating, coffee ground emesis, constipation, dysphagia, heartburn, hematemesis, hematochezia, melena, other Genitourinary: ABSENT: dysuria, hematuria Musculoskeletal: PRESENT: deformity - right shoulder joint Integumentary: ABSENT: rash, wounds Neurological: PRESENT: convulsions Psychiatric: ABSENT: anxiety, depression, homidical ideation, suicidal ideation Endocrine: ABSENT: cold intolerance, heat intolerance, menstrual abnormalities, polydipsia, polyuria Hematologic/Lymphatic: ABSENT: easy bleeding, easy bruising, lymphadenopathy Allergic/Immunologic: ABSENT: seasonal rhinorrhea Physical Exam Vital Signs: Temp Pulse Resp BP Pulse Ox 99.4 F 84 22 H 143/88 H 100 07/20/17 12:00 07/20/17 12:00 07/20/17 12:00 07/20/17 12:00 07/20/17 12:00 Intake & Output 07/19/17 07/20/17 07/21/17 06:59 06:59 06:59 Intake Total 350 Output Total 400 Balance -50 Weight 109.4 kg General appearance: PRESENT: no acute distress, cooperative - and follow instruction but nursing staff reported episodes of confusion, obese Head exam: PRESENT: atraumatic, normocephalic Eye exam: PRESENT: conjunctiva pink, EOMI, PERRLA. ABSENT: scleral icterus Ear exam: PRESENT: normal external ear exam Mouth exam: PRESENT: moist, neck supple, tongue midline Throat exam: ABSENT: post pharyngeal erythema, tonsillar erythema, tonsillar exudate, tonsillogmegaly, other Neck exam: PRESENT: full ROM. ABSENT: carotid bruit, JVD, lymphadenopathy, meningismus, thyromegaly Respiratory exam: PRESENT: clear to auscultation aleksander Cardiovascular exam: PRESENT: RRR. ABSENT: diastolic murmur, rubs, systolic murmur Pulses: PRESENT: normal dorsalis pedis pul, +2 pedal pulses bilateral Vascular exam: PRESENT: normal capillary refill. ABSENT: pallor GI/Abdominal exam: PRESENT: normal bowel sounds, soft. ABSENT: distended, guarding, mass, organolmegaly, rebound, tenderness Rectal exam: PRESENT: deferred Gentrourinary exam: ABSENT: indwelling catheter Extremities exam: ABSENT: pedal edema Musculoskeletal exam: PRESENT: normal inspection Neurological exam: PRESENT: alert, awake, oriented to person, oriented to place , oriented to time, oriented to situation, CN II-XII grossly intact. ABSENT: motor sensory deficit Psychiatric exam: PRESENT: appropriate affect, normal mood. ABSENT: homicidal ideation, suicidal ideation Skin exam: PRESENT: dry, intact, warm. ABSENT: cyanosis, rash Results Laboratory Results: 07/20/17 07/20/17 07/20/17 15:50 15:50 15:50 Fluid Tube Number 1 CSF Volume 30.0 CSF Appearance CLEAR CSF Color COLORLESS CSF WBC 2 CSF RBC 120 CSF Comment CSF CULTURE ORDERED CSF Glucose 45 CSF Total Protein 28 07/20/17 16:03 Fluid Tube Number 4 CSF Volume 30.0 CSF Appearance CLEAR CSF Color COLORLESS CSF WBC 0 CSF RBC 2 CSF Comment CSF Glucose CSF Total Protein Impressions: Fluoroscopy 07/20/17 00:00 IMPRESSION: IMAGE(S) OBTAINED DURING PROCEDURE. Lumbar Puncture 07/20/17 00:00 IMPRESSION: Lumbar puncture under fluoroscopy. No immediate complication. Shoulder X-Ray 07/20/17 00:00 IMPRESSION: IMAGE(S) OBTAINED DURING PROCEDURE. Chest X-Ray 07/20/17 11:36 IMPRESSION: 1 Since the previous examination dated 12/14/2014, interval placement of left central venous line. No evidence of pneumothorax. 2. Low lung volumes limits examination. No acute pulmonary consolidation. Assessment & Plan - Diagnosis (1) Uncontrolled seizures Qualifiers: Convulsion type: unspecified Qualified Code(s): R56.9 - Unspecified convulsions Is this a current diagnosis for this admission?: Yes Plan: See admitting attending physician orders. (2) Shoulder dislocation Qualifiers: Encounter type: initial encounter Is this a current diagnosis for this admission?: Yes Plan: See admitting attending physician orders. (3) Strep sore throat Is this a current diagnosis for this admission?: Yes Plan: See admitting attending physician orders. (4) HTN (hypertension) Qualifiers: Hypertension type: essential hypertension Qualified Code(s): I10 - Essential (primary) hypertension Is this a current diagnosis for this admission?: Yes Plan: See admitting attending physician orders. - Time Time Spent: Greater than 70 Minutes - I had extensive discussion with Dr Workman , orthopedic surgeon, and involved anesthesiologist regarding attempt at close reduction of her right shoulder dislocation. Due to recurrent dislocationa dn shoulder joint instability as well as complexity of the involved further procedure and several prior surgical intervention, it was agreed upon that she will be better taken care by her prior surgeon, Dr. Gary. More of my timne was spent in reviewing her medical record from [facility]. Her right shoulder joint surgery was performed at [facility]. We are in the process of obtaining her record and communicate with her surgeon. Dr Tan, neuroplogist, imput regarding her seizure management appreciated. If patient remain more stable seizure prater, we will look into her transfer to [facility] for orthopod service need. Medications reviewed and adjusted accordingly: Yes Anticipated discharge: Other Within: Other - Inpatient Certification Based on my medical assessment, after consideration of the patient's comorbidities, presenting symptoms, or acuity I expect that the services needed warrant INPATIENT care.: Yes I certify that my determination is in accordance with my understanding of Medicare's requirements for reasonable and necessary INPATIENT services [42 CFR 412.3e].: Yes Medical Necessity: Need Close Monitoring Due to Risk of Patient Decompensation, Need For IV Fluids, Need For Continuous Telemetry Monitoring, Need for IV Antibiotics, Risk of Complication if Not Cared For in Hospital Post Hospital Care: D/C or Transfer Summary - Plan Summary Plan Summary: See admitting attending physician orders.
[2017-07-20] MEDS ORDERED: CEFTRIAXONE 1 GM/D5W RTU 1 GM/50 ML RTUPB IV SCH (20:00)
[2017-07-20] MEDS: RINGERS SOLUTION,LACTATED 1,000 ML IV SCH (20:01)
[2017-07-20] MEDS ORDERED: LACOSAMIDE 50 MG TABLET PO SCH (22:00)
[2017-07-20] MEDS: OXYCODONE HCL IR 5 MG TABLET PO PRN (22:02)
[2017-07-20] MEDS: CEFTRIAXONE SODIUM 1,000 MG in NORMAL SALINE 100 ML IV SCH (22:07)
[2017-07-20] MEDS: ONDANSETRON 4 MG TAB.RAPDIS SL PRN (23:08)
[2017-07-21] MEDS: FENTANYL CITRATE INJ/PF 100 MCG/2 ML AMPUL IV PRN ×6 (00:14→23:09)
[2017-07-21] MEDS: LORAZEPAM INJ 2 MG/1 ML VIAL IV PRN ×9 (01:31→23:12)
--- NOTE | 2017-07-21 06:33 | PDOC PROGRESS REPORT ---
Subjective Progress Note for:: 07/21/17 Reason For Visit: RECURRENT SEIZURE 32-year-old black female postop day 1 from right shoulder reduction in the operating room and application of an abduction shoulder pillow Physical Exam Vital Signs: Temp Pulse Resp BP Pulse Ox 37.1 C 87 22 H 114/92 H 100 07/21/17 05:09 07/21/17 04:00 07/21/17 04:00 07/21/17 04:00 07/21/17 04:00 Intake & Output 07/19/17 07/20/17 07/21/17 06:59 06:59 06:59 Intake Total 350 Output Total 3710 Balance -3360 Weight 106.4 kg Physical Exam: Patient lying comfortably in bed palpation of the shoulder would suggest that its reduced. Abduction pillow placed in the operating yesterday is across the room on a rolling cart General appearance: PRESENT: no acute distress Head exam: PRESENT: normocephalic Respiratory exam: PRESENT: unlabored Cardiovascular exam: PRESENT: RRR Pulses: PRESENT: normal radial pulses GI/Abdominal exam: PRESENT: soft Rectal exam: PRESENT: deferred Musculoskeletal exam: PRESENT: other - Right upper extremity seemingly with an anatomic reduction at this point. Distal neurovascular examination is intact. Results Laboratory Results: 07/20/17 07/20/17 07/20/17 15:50 15:50 15:50 Fluid Tube Number 1 CSF Volume 30.0 CSF Appearance CLEAR CSF Color COLORLESS CSF WBC 2 CSF RBC 120 CSF Comment CSF CULTURE ORDERED CSF Glucose 45 CSF Total Protein 28 07/20/17 16:03 Fluid Tube Number 4 CSF Volume 30.0 CSF Appearance CLEAR CSF Color COLORLESS CSF WBC 0 CSF RBC 2 CSF Comment CSF Glucose CSF Total Protein Impressions: Fluoroscopy 07/20/17 00:00 IMPRESSION: IMAGE(S) OBTAINED DURING PROCEDURE. Lumbar Puncture 07/20/17 00:00 IMPRESSION: Lumbar puncture under fluoroscopy. No immediate complication. Shoulder X-Ray 07/20/17 00:00 IMPRESSION: IMAGE(S) OBTAINED DURING PROCEDURE. Chest X-Ray 07/20/17 11:36 IMPRESSION: 1 Since the previous examination dated 12/14/2014, interval placement of left central venous line. No evidence of pneumothorax. 2. Low lung volumes limits examination. No acute pulmonary consolidation. Assessment & Plan - Diagnosis (1) Shoulder dislocation Qualifiers: Encounter type: initial encounter Is this a current diagnosis for this admission?: Yes Plan: 32-year-old black female status post closed reduction of right shoulder dislocation in the operating yesterday, application of an abduction pillow and from an orthopedics joint standpoint an uncomplicated postoperative course. The patient has a very unstable right shoulder and leaving the patient outside of an abduction pillow at this point is inviting a repeat dislocation. - Time Time Spent with patient: 15-24 minutes Anticipated discharge: Other Within: Other
[2017-07-21] MEDS: RINGERS SOLUTION,LACTATED 1,000 ML IV SCH ×2 (06:38→12:46)
[2017-07-21] MEDS: PHENYTOIN SODIUM INJ/PF 100 MG/2 ML SDV IV SCH ×3 (06:39→21:23)
[2017-07-21] MEDS: LACOSAMIDE INJ/PF 200 MG/20 ML SDV IV SCH ×2 (06:39→18:58)
[2017-07-21 07:00] LABS: ABSOLUTE BASOPHILS # (AUTO) 0.1 10^3/uL (0.0-0.2); ABSOLUTE EOSINOPHILS # (AUTO) 0.2 10^3/uL (0.0-0.6); ABSOLUTE MONOCYTES (AUTO) 0.6 10^3/uL (0.1-1.4); ABSOLUTE NEUT (AUTO) 5.1 10^3/uL (1.7-8.2); BASOPHILS % (AUTO) 0.7 % (0-2); EOSINOPHILS % (AUTO) 2.4 % (0-6); HEMATOCRIT 37.4 % (36.0-47.0); HEMOGLOBIN 12.4 g/dL (12.0-15.5); LYMPHOCYTES % (AUTO) 24.7 % (13-45); MEAN CORPUSCULAR HEMOGLOBIN 29.2 pg (27.0-33.4); MEAN CORPUSCULAR HGB CONC 33.2 g/dL (32.0-36.0); MEAN CORPUSCULAR VOLUME 88 fl (80-97); MONOCYTES % (AUTO) 7.8 % (3-13); PLATELET COUNT 301 10^3/uL (150-450); RED BLOOD COUNT 4.25 10^6/uL (3.72-5.28); RED CELL DISTRIBUTION WIDTH 14.7 % (11.5-14.0); SEGMENTED NEUTROPHILS % (AUTO) 64.4 % (42-78); TOTAL CELLS COUNTED % (AUTO) 100 %
[2017-07-21 07:31] LABS: ALANINE AMINOTRANSFERASE 30 U/L (9-52); ALBUMIN 4.3 g/dL (3.5-5.0); ALKALINE PHOSPHATASE 86 U/L (38-126); ANION GAP 14 (5-19); ASPARTATE AMINO TRANSFERASE 18 U/L (14-36); BILIRUBIN,DIRECT 0.1 mg/dL (0.0-0.4); BILIRUBIN,TOTAL 0.3 mg/dL (0.2-1.3); BLOOD UREA NITROGEN 7 mg/dL (7-20); CALCIUM 9.8 mg/dL (8.4-10.2); CARBON DIOXIDE 20 mmol/L (22-30); CHLORIDE 106 mmol/L (98-107); GLUCOSE 72 mg/dL (75-110); SODIUM 139.8 mmol/L (137-145); TOTAL PROTEIN 7.2 g/dL (6.3-8.2)
--- NOTE | 2017-07-21 08:43 | PDOC PROGRESS REPORT ---
Subjective Progress Note for:: 07/21/17 Subjective:: Patient reported headache and described unclear headache cocktail given to her at [facility]. No vomiting or nausea. Less frequent seizure activity since last clinical evaluation. No fever or chills. No chest pain or difficulty with breathing. Currently on triple IV seizure medication ad Lorazepam for acute episodes. No focal weakness. Reason For Visit: RECURRENT SEIZURE Physical Exam Vital Signs: Temp Pulse Resp BP Pulse Ox 98.8 F 87 22 H 114/92 H 100 07/21/17 05:09 07/21/17 04:00 07/21/17 04:00 07/21/17 04:00 07/21/17 04:00 Intake & Output 07/20/17 07/21/17 07/22/17 06:59 06:59 06:59 Intake Total 2463 Output Total 3710 Balance -1247 Weight 106.4 kg General appearance: PRESENT: no acute distress, well-developed, well-nourished Head exam: PRESENT: atraumatic, normocephalic Eye exam: PRESENT: conjunctiva pink, EOMI, PERRLA. ABSENT: scleral icterus Mouth exam: PRESENT: moist, tongue midline Respiratory exam: PRESENT: clear to auscultation aleksander Cardiovascular exam: PRESENT: RRR, tachycardia. ABSENT: diastolic murmur, rubs , systolic murmur Vascular exam: PRESENT: normal capillary refill. ABSENT: pallor GI/Abdominal exam: PRESENT: normal bowel sounds, soft. ABSENT: distended, guarding, mass, organolmegaly, rebound, tenderness Extremities exam: ABSENT: pedal edema Musculoskeletal exam: PRESENT: deformity - right shoulder joint anterior dislocation, normal inspection Neurological exam: PRESENT: alert, awake, oriented to person, oriented to place , oriented to time, oriented to situation, CN II-XII grossly intact. ABSENT: motor sensory deficit Skin exam: PRESENT: dry, intact, warm. ABSENT: cyanosis, rash Results Laboratory Results: 07/21/17 06:15 07/21/17 06:15 07/20/17 07/20/17 07/20/17 15:50 15:50 15:50 WBC RBC Hgb Hct MCV MCH MCHC RDW Plt Count Seg Neutrophils % Lymphocytes % Monocytes % Eosinophils % Basophils % Absolute Neutrophils Absolute Lymphocytes Absolute Monocytes Absolute Eosinophils Absolute Basophils Sodium Potassium Chloride Carbon Dioxide Anion Gap BUN Creatinine Est GFR ( Amer) Est GFR (Non-Af Amer) Glucose Calcium Magnesium Total Bilirubin AST ALT Alkaline Phosphatase Total Protein Albumin Fluid Tube Number 1 CSF Volume 30.0 CSF Appearance CLEAR CSF Color COLORLESS CSF WBC 2 CSF RBC 120 CSF Comment CSF CULTURE ORDERED CSF Glucose 45 CSF Total Protein 28 07/20/17 07/21/17 07/21/17 16:03 06:15 06:15 WBC 8.0 RBC 4.25 Hgb 12.4 Hct 37.4 MCV 88 MCH 29.2 MCHC 33.2 RDW 14.7 H Plt Count 301 Seg Neutrophils % 64.4 Lymphocytes % 24.7 Monocytes % 7.8 Eosinophils % 2.4 Basophils % 0.7 Absolute Neutrophils 5.1 Absolute Lymphocytes 2.0 Absolute Monocytes 0.6 Absolute Eosinophils 0.2 Absolute Basophils 0.1 Sodium 139.8 Potassium 4.0 Chloride 106 Carbon Dioxide 20 L Anion Gap 14 BUN 7 Creatinine 0.74 Est GFR ( Amer) > 60 Est GFR (Non-Af Amer) > 60 Glucose 72 L Calcium 9.8 Magnesium 1.8 Total Bilirubin 0.3 AST 18 ALT 30 Alkaline Phosphatase 86 Total Protein 7.2 Albumin 4.3 Fluid Tube Number 4 CSF Volume 30.0 CSF Appearance CLEAR CSF Color COLORLESS CSF WBC 0 CSF RBC 2 CSF Comment CSF Glucose CSF Total Protein Impressions: Fluoroscopy 07/20/17 00:00 IMPRESSION: IMAGE(S) OBTAINED DURING PROCEDURE. Lumbar Puncture 07/20/17 00:00 IMPRESSION: Lumbar puncture under fluoroscopy. No immediate complication. Shoulder X-Ray 07/20/17 00:00 IMPRESSION: IMAGE(S) OBTAINED DURING PROCEDURE. Chest X-Ray 07/20/17 11:36 IMPRESSION: 1 Since the previous examination dated 12/14/2014, interval placement of left central venous line. No evidence of pneumothorax. 2. Low lung volumes limits examination. No acute pulmonary consolidation. Assessment & Plan - Diagnosis (1) Uncontrolled seizures Qualifiers: Convulsion type: unspecified Qualified Code(s): R56.9 - Unspecified convulsions Is this a current diagnosis for this admission?: Yes (2) Shoulder dislocation Qualifiers: Encounter type: initial encounter Is this a current diagnosis for this admission?: Yes (3) Strep sore throat Is this a current diagnosis for this admission?: Yes (4) HTN (hypertension) Qualifiers: Hypertension type: essential hypertension Qualified Code(s): I10 - Essential (primary) hypertension Is this a current diagnosis for this admission?: Yes - Time Time Spent with patient: 35 or more minutes Medications reviewed and adjusted accordingly: Yes Anticipated discharge: Other Within: Other - Inpatient Certification Based on my medical assessment, after consideration of the patient's comorbidities, presenting symptoms, or acuity I expect that the services needed warrant INPATIENT care.: Yes I certify that my determination is in accordance with my understanding of Medicare's requirements for reasonable and necessary INPATIENT services [42 CFR 412.3e].: Yes Medical Necessity: Need Close Monitoring Due to Risk of Patient Decompensation, Need For IV Fluids, Need For Continuous Telemetry Monitoring, Need for Pain Control, Need for IV Antibiotics, Risk of Complication if Not Cared For in Hospital Post Hospital Care: Other - Plan Summary Plan Summary: Continue current medication management. Start on Propranolol 10 mg p.o [id number] and Valsartan 160 mg p.o daily. Obtain medical record from [facility] for review with regard to her management with headache cocktail. Neurologist input appreciated. I spoke with her orthopedic group director of instructional technology surgeon yesterday with plan to contact Dr Gary later today but her seizure need to be under control before any surgical intervention can be carried out effectively.
[2017-07-21] MEDS: ACETAZOLAMIDE 250 MG TABLET PO SCH ×2 (12:33→18:58)
[2017-07-21] MEDS: VALSARTAN 160 MG TABLET PO SCH (12:34)
[2017-07-21] MEDS: LEVETIRACETAM 500 MG/NACL-ISO 500 MG/100 ML RTUPB IV SCH ×2 (12:34→21:23)
[2017-07-21] MEDS: OXYCODONE HCL IR 5 MG TABLET PO PRN ×2 (12:36→20:59)
[2017-07-21] MEDS: TOPIRAMATE 25 MG TABLET PO SCH ×2 (12:36→21:24)
[2017-07-21] MEDS ORDERED: ONDANSETRON HCL INJ/PF 4 MG/2 ML SDV ONE (13:19)
--- NOTE | 2017-07-21 15:13 | RADIOLOGY REPORT (SQ) ---
EXAM DESCRIPTION: CHEST SINGLE VIEW COMPLETED DATE/TIME: 07/21/2017 2:48 pm REASON FOR STUDY: Central Line Placement COMPARISON: 07/20/2017. EXAM PARAMETERS: NUMBER OF VIEWS: One view. TECHNIQUE: Single frontal radiographic view of the chest acquired. RADIATION DOSE: NA LIMITATIONS: None. FINDINGS: LUNGS AND PLEURA: No opacities, masses or pneumothorax. No pleural effusion. MEDIASTINUM AND HILAR STRUCTURES: No masses. Contour normal. HEART AND VASCULAR STRUCTURES: Heart normal in size. Normal vasculature. BONES: No acute findings. HARDWARE: Catheter in the left side of the neck has been removed. New central line on the right side with the tip at the level of the superior vena cava. OTHER: No other significant finding. IMPRESSION: CENTRAL LINE PLACEMENT ON THE RIGHT SIDE IN SATISFACTORY POSITION WITH NO PNEUMOTHORAX. NO ACUTE RADIOGRAPHIC FINDING IN THE CHEST. TECHNICAL DOCUMENTATION: JOB ID: [id number] [employer]- All Rights Reserved Reading location - IP/workstation name: [email or web address]
--- NOTE | 2017-07-21 15:14 | RADIOLOGY REPORT (SQ) ---
EXAM DESCRIPTION: CHEST SINGLE VIEW COMPLETED DATE/TIME: 07/21/2017 3:02 pm REASON FOR STUDY: TLC Pulled out during Seizure COMPARISON: 07/20/2017. EXAM PARAMETERS: NUMBER OF VIEWS: One view. TECHNIQUE: Single frontal radiographic view of the chest acquired. RADIATION DOSE: NA LIMITATIONS: None. FINDINGS: LUNGS AND PLEURA: No opacities, masses or pneumothorax. No pleural effusion. MEDIASTINUM AND HILAR STRUCTURES: No masses. Contour normal. HEART AND VASCULAR STRUCTURES: Heart normal in size. Normal vasculature. BONES: No acute findings. HARDWARE: Central line on the left side with the tip at the level of the clavicle. OTHER: No other significant finding. IMPRESSION: CENTRAL LINE ON THE LEFT SIDE HAS PULLED BACK DESCRIBED. NO PNEUMOTHORAX. OTHERWISE NO ACUTE RADIOGRAPHIC FINDING IN THE CHEST. TECHNICAL DOCUMENTATION: JOB ID: [id number] [employer]- All Rights Reserved Reading location - IP/workstation name: [email or web address]
--- NOTE | 2017-07-21 15:29 | OPERATIVE REPORT E ---
Operative Report NAME: JAYDA RAMEY : 1985 AGE: 32Y DATE OF SURGERY: ROOM: 603 PREOPERATIVE DIAGNOSIS: PULLED LEFT INTERNAL JUGULAR VEIN CATHETER DURING SEIZURE. POSTOPERATIVE DIAGNOSIS: PULLED LEFT INTERNAL JUGULAR VEIN CATHETER DURING SEIZURE. OPERATION: Placement of new right internal jugular vein catheter under ultrasound guidance. SURGEON: RANDY LEONARD M.D. ANESTHESIA: Local. DESCRIPTION OF PROCEDURE: The patient was placed in the Trendelenburg position, and the right neck prepped and draped in the usual sterile fashion. With use of the ultrasound, the right internal jugular vein was then identified. Local anesthesia infiltrated over the internal jugular vein site. The IJ was then punctured percutaneously and guidewire passed through the needle towards the area of the superior vena cava and the needle removed. The puncture site was then dilated and a triple lumen catheter inserted to about 17 cm. During this time, the patient appeared to be starting another seizure when the catheter was immediately anchored to the skin with 3-0 silk. The patient did have a seizure for a few seconds. Following this, the 3 ports sprayed of blood easily and instilled saline easily. A Biopatch was placed at the insertion site. The nurse then dressed the placement site. Patient tolerated the procedure well. A chest x-ray will be taken for placement. DICTATING PHYSICIAN: RANDY LEONARD M.D. [id number] Y#: [id number] ID: [id number] JOB#: [id number] ACCT: [id number] cc:RANDY LEONARD M.D. >
[2017-07-21] MEDS ORDERED: KETOROLAC TROMETHAMINE INJ/PF 30 MG/1 ML SDV ONE (17:32)
[2017-07-21] MEDS ORDERED: KETOROLAC TROMETHAMINE INJ/PF 30 MG/1 ML SDV IV PRN (17:35)
[2017-07-21] MEDS: ONDANSETRON 4 MG TAB.RAPDIS SL PRN (18:58)
[2017-07-21] MEDS: ENOXAPARIN SODIUM INJ 30 MG/0.3 ML DISP.SYRIN SUBCUT SCH (19:16)
[2017-07-21] MEDS: PROPRANOLOL HCL 10 MG TABLET PO SCH ×2 (21:00→21:45)
[2017-07-21] MEDS: CEFTRIAXONE SODIUM 1,000 MG in NORMAL SALINE 100 ML IV SCH (21:55)
[2017-07-21] MEDS ORDERED: TOPIRAMATE 100 MG TABLET PO SCH (22:00)
[2017-07-22] MEDS: RINGERS SOLUTION,LACTATED 1,000 ML IV SCH ×2 (01:48→13:03)
[2017-07-22] MEDS: FENTANYL CITRATE INJ/PF 100 MCG/2 ML AMPUL IV PRN ×2 (04:59→13:02)
[2017-07-22] MEDS: PROPRANOLOL HCL 10 MG TABLET PO SCH ×2 (05:08→14:49)
[2017-07-22] MEDS: PHENYTOIN SODIUM INJ/PF 100 MG/2 ML SDV IV SCH (05:09)
[2017-07-22] MEDS: LACOSAMIDE INJ/PF 200 MG/20 ML SDV IV SCH (05:15)
[2017-07-22 05:33] LABS: ABSOLUTE BASOPHILS # (AUTO) 0.1 10^3/uL (0.0-0.2); ABSOLUTE EOSINOPHILS # (AUTO) 0.3 10^3/uL (0.0-0.6); ABSOLUTE MONOCYTES (AUTO) 0.6 10^3/uL (0.1-1.4); ABSOLUTE NEUT (AUTO) 4.9 10^3/uL (1.7-8.2); BASOPHILS % (AUTO) 0.8 % (0-2); EOSINOPHILS % (AUTO) 4.1 % (0-6); HEMATOCRIT 38.5 % (36.0-47.0); HEMOGLOBIN 12.7 g/dL (12.0-15.5); LYMPHOCYTES % (AUTO) 25.7 % (13-45); MEAN CORPUSCULAR HEMOGLOBIN 28.8 pg (27.0-33.4); MEAN CORPUSCULAR HGB CONC 32.9 g/dL (32.0-36.0); MEAN CORPUSCULAR VOLUME 88 fl (80-97); MONOCYTES % (AUTO) 7.9 % (3-13); PLATELET COUNT 293 10^3/uL (150-450); RED CELL DISTRIBUTION WIDTH 14.3 % (11.5-14.0); SEGMENTED NEUTROPHILS % (AUTO) 61.5 % (42-78); TOTAL CELLS COUNTED % (AUTO) 100 %
[2017-07-22 05:56] LABS: ALANINE AMINOTRANSFERASE 34 U/L (9-52); ALBUMIN 4.2 g/dL (3.5-5.0); ALKALINE PHOSPHATASE 93 U/L (38-126); ANION GAP 16 (5-19); ASPARTATE AMINO TRANSFERASE 14 U/L (14-36); BILIRUBIN,DIRECT 0.2 mg/dL (0.0-0.4); BILIRUBIN,TOTAL 0.3 mg/dL (0.2-1.3); BLOOD UREA NITROGEN 9 mg/dL (7-20); CALCIUM 9.7 mg/dL (8.4-10.2); CARBON DIOXIDE 16 mmol/L (22-30); CHLORIDE 107 mmol/L (98-107); GLUCOSE 77 mg/dL (75-110); POTASSIUM 3.8 mmol/L (3.6-5.0); SODIUM 138.9 mmol/L (137-145); TOTAL PROTEIN 7.3 g/dL (6.3-8.2)
[2017-07-22] MEDS: LORAZEPAM INJ 2 MG/1 ML VIAL IV PRN ×4 (09:11→16:39)
[2017-07-22] MEDS ORDERED: SERTRALINE HCL 50 MG TABLET PO SCH (10:00)
[2017-07-22] MEDS: TOPIRAMATE 25 MG TABLET PO SCH (12:34)
[2017-07-22] MEDS: ACETAZOLAMIDE 250 MG TABLET PO SCH ×2 (12:35→19:04)
[2017-07-22] MEDS: VALSARTAN 160 MG TABLET PO SCH (12:35)
[2017-07-22] MEDS: OXYCODONE HCL IR 5 MG TABLET PO PRN (12:36)
[2017-07-22] MEDS: ENOXAPARIN SODIUM INJ 30 MG/0.3 ML DISP.SYRIN SUBCUT SCH (13:04)
[2017-07-22] MEDS ORDERED: HYDROXYZINE PAMOATE 25 MG CAPSULE PO PRN (14:01)
--- NOTE | 2017-07-22 15:37 | EEG PRO FEE REPORT ---
EEG INTERPRETATION PATIENT NAME: JAYDA RAMEY ROOM#: 603 ORDER#: [id number] DATE OF STUDY: 07/21/2017 : 1985 REFERRING MD: ERWIN PARIKH M.D. DIAGNOSIS: Seizures REPORT The background activity consists of well developed 8-10 Hz alpha with some superimposed motion artifact frequently. No definite focal slowing, amplitude asymmetry, or epileptiform discharges are noted and the video is reviewed during these times with no clear seizure activity being exhibited. IMPRESSION Normal EEG with excess motion artifact at times. INTERPRETING PHYSICIAN: ERWIN PARIKH M.D. /: [id number] TT: [id number] ID: [id number] /: [id number] TD: [id number] JOB: [id number] cc:Kavon OLEA M.D. CLARENCE BALLENGER, M.D. >
[2017-07-22 16:28] VITALS: BP 145/105
--- NOTE | 2017-07-22 17:19 | RADIOLOGY REPORT (SQ) ---
EXAM DESCRIPTION: MRI HEAD WITHOUT COMPLETED DATE/TIME: 07/22/2017 4:53 pm REASON FOR STUDY: SEIZURE ACTIVITY COMPARISON: CT dated 02/18/2017. TECHNIQUE: Multiplanar imaging includes non-contrasted T1, T2, FLAIR, and diffusion with ADC map seq uences. Images stored on PACS. LIMITATIONS: None. FINDINGS: ANATOMY: No anomalies. Normal vascular flow voids. Pituitary fossa normal. CSF SPACES: Normal in size and contour. No hemorrhage. CEREBRUM: Sulci and gyri normal in size and contour. Normal white matter signal on FLAIR imaging. No evidence of hemorrhage, mass, or extraaxial fluid collection. POSTERIOR FOSSA: No signal alteration. No hemorrhage. No edema, masses or mass effect. Internal kristy tory canals, cerebello-pontine angles, mastoids normal. DIFFUSION IMAGING: Negative for acute or sub-acute infarction. ORBITS: No masses. Globes normal. PARANASAL SINUSES: No fluid levels. Mucosa normal. OTHER: No other significant finding. IMPRESSION: NORMAL MRI OF THE BRAIN WITHOUT INTRAVENOUS GADOLINIUM CONTRAST. EVIDENCE OF ACUTE STROKE: NO. TECHNICAL DOCUMENTATION: JOB ID: [id number] [employer]- All Rights Reserved Reading location - IP/workstation name: [email or web address]
--- NOTE | 2017-07-22 18:33 | PDOC PROGRESS REPORT ---
Subjective Progress Note for:: 07/22/17 Subjective:: Nursing staff reported 3 episodes of seizure like movement activities so far today but patient maintain consciousness with eye challenge during the activities. She remain lucid and appropriated thereafter and asking for pain medication administration. No vomiting or nausea. No fever or chills. No chest pain or difficulty with breathing. No headache, dizziness, or focal weakness. I discussed case with neurologist, Dr. Tan, earlier today with recommendation to transfer to tertiary center. Patient threaten to sign out against medical advise earlier today. Reason For Visit: RECURRENT SEIZURE Physical Exam Vital Signs: Temp Pulse Resp BP Pulse Ox 100.0 F 105 H 30 H 145/105 H 99 07/22/17 16:00 07/22/17 16:00 07/22/17 16:00 07/22/17 16:00 07/22/17 16:00 Intake & Output 07/21/17 07/22/17 07/23/17 06:59 06:59 06:59 Intake Total 2463 2420 Output Total 3710 3430 1750 Balance -1247 -1010 -1750 Weight 106.4 kg 102.2 kg Physical Exam: General appearance: PRESENT: no acute distress, well-developed, well-nourished Head exam: PRESENT: atraumatic, normocephalic Eye exam: PRESENT: conjunctiva pink, EOMI, PERRLA. ABSENT: scleral icterus Mouth exam: PRESENT: moist, tongue midline Respiratory exam: PRESENT: clear to auscultation aleksander Cardiovascular exam: PRESENT: RRR, tachycardia. ABSENT: diastolic murmur, rubs , systolic murmur Vascular exam: PRESENT: normal capillary refill. ABSENT: pallor GI/Abdominal exam: PRESENT: normal bowel sounds, soft. ABSENT: distended, guarding, mass, organomegaly, rebound, tenderness Extremities exam: ABSENT: pedal edema Musculoskeletal exam: PRESENT: deformity - right shoulder joint anterior dislocation, normal inspection Neurological exam: PRESENT: alert, awake, oriented to person, oriented to place , oriented to time, oriented to situation, CN II-XII grossly intact. ABSENT: motor sensory deficit Skin exam: PRESENT: dry, intact, warm. ABSENT: cyanosis, rash Results Laboratory Results: 07/22/17 04:50 07/22/17 04:50 07/22/17 07/22/17 04:50 04:50 WBC 8.0 RBC 4.40 Hgb 12.7 Hct 38.5 MCV 88 MCH 28.8 MCHC 32.9 RDW 14.3 H Plt Count 293 Seg Neutrophils % 61.5 Lymphocytes % 25.7 Monocytes % 7.9 Eosinophils % 4.1 Basophils % 0.8 Absolute Neutrophils 4.9 Absolute Lymphocytes 2.0 Absolute Monocytes 0.6 Absolute Eosinophils 0.3 Absolute Basophils 0.1 Sodium 138.9 Potassium 3.8 Chloride 107 Carbon Dioxide 16 L Anion Gap 16 BUN 9 Creatinine 0.69 Est GFR ( Amer) > 60 Est GFR (Non-Af Amer) > 60 Glucose 77 Calcium 9.7 Magnesium 2.0 Total Bilirubin 0.3 AST 14 ALT 34 Alkaline Phosphatase 93 Total Protein 7.3 Albumin 4.2 07/22/17 04:50 Creatine Kinase 125 Impressions: Fluoroscopy 07/20/17 00:00 IMPRESSION: IMAGE(S) OBTAINED DURING PROCEDURE. Lumbar Puncture 07/20/17 00:00 IMPRESSION: Lumbar puncture under fluoroscopy. No immediate complication. Shoulder X-Ray 07/20/17 00:00 IMPRESSION: IMAGE(S) OBTAINED DURING PROCEDURE. Chest X-Ray 07/21/17 14:49 IMPRESSION: CENTRAL LINE ON THE LEFT SIDE HAS PULLED BACK DESCRIBED. NO PNEUMOTHORAX. OTHERWISE NO ACUTE RADIOGRAPHIC FINDING IN THE CHEST. Head MRI 07/22/17 00:00 IMPRESSION: NORMAL MRI OF THE BRAIN WITHOUT INTRAVENOUS GADOLINIUM CONTRAST. EVIDENCE OF ACUTE STROKE: NO. Assessment & Plan - Diagnosis (1) Shoulder dislocation Qualifiers: Encounter type: initial encounter Is this a current diagnosis for this admission?: Yes (2) Strep sore throat Is this a current diagnosis for this admission?: Yes (3) HTN (hypertension) Qualifiers: Hypertension type: essential hypertension Qualified Code(s): I10 - Essential (primary) hypertension Is this a current diagnosis for this admission?: Yes (4) Psychogenic nonepileptic seizure Is this a current diagnosis for this admission?: Yes Plan: Start on sertraline therapy. Obtain psychiatry service evaluation. (5) Pseudotumor cerebri Is this a current diagnosis for this admission?: Yes Plan: See attending physician orders. - Time Time Spent with patient: 35 or more minutes - More than 50% on my time was spect in consultation with [facility] neurologist production operations manager who declined acceptance of the patient transfer due to apropriate therapy so far , availability of necessary specialist and [facility] She recommended psychaitry evaluation to initaite cognitive behaviotral therapy and less enabling interaction. Medications reviewed and adjusted accordingly: Yes Anticipated discharge: Home Within: Other - Inpatient Certification Based on my medical assessment, after consideration of the patient's comorbidities, presenting symptoms, or acuity I expect that the services needed warrant INPATIENT care.: Yes I certify that my determination is in accordance with my understanding of Medicare's requirements for reasonable and necessary INPATIENT services [42 CFR 412.3e].: Yes Medical Necessity: Need Close Monitoring Due to Risk of Patient Decompensation, Need For IV Fluids, Need For Continuous Telemetry Monitoring, Risk of Complication if Not Cared For in Hospital Post Hospital Care: D/C Yard Engineer Documentation - Plan Summary Plan Summary: Continue current management. Obtain psychiatry consultation.
--- NOTE | 2017-07-22 20:55 | PDOC DISCHARGE SUMMARY ---
General - Admit/Disc Date/PCP Admission Date/Primary Care Provider: 07/20/17 08:51 Discharge Date: 07/22/17 - Discharge Diagnosis (1) Shoulder dislocation Is this a current diagnosis for this admission?: Yes (2) Strep sore throat Is this a current diagnosis for this admission?: Yes (3) HTN (hypertension) Is this a current diagnosis for this admission?: Yes (4) Psychogenic nonepileptic seizure Is this a current diagnosis for this admission?: Yes (5) Pseudotumor cerebri Is this a current diagnosis for this admission?: Yes - Additional Information Resuscitation Status: Full Code Discharge Diet: As Tolerated Discharge Activity: Activity As Tolerated Home Medications: Acetazolamide [Diamox 250 mg Tab] 250 mg PO BID 07/20/17 Topiramate [Topamax 25 mg Tablet] 25 mg PO BID 07/20/17 History of Present Illness History of Present Illness: Patient is 32 years old female that is due to establish with my practice on who presented to the ED due to recurrent seizure activities. Patient has longstanding history of pseudotumor cerebri s/p shunt and venous stent placement for management of IICH. She reported compliance with her medication until recently when she developed nausea and vomiting. She reported associated fever, sore throat, and diarrhea. Her hospital stay so far has been significant for recurrent seizure activities despite administration loading dose of Dilantin and Keppra Intravenously. Patient have received several intravenous doses of Lorazepam for acute seizure management. She received a dose of Vimpat due to continue seizure activity. Other significant issue upon presentation was recurrent right shoulder joint dislocation with acute pain. She related recurrent dislocation to her seizure activities. She had right shoulder surgery to manage her shoulder dislocation without success. She will be admitted for further management of her seizure and right shoulder joint dislocation with acute pain. Her other morbidities include Hypertension and Kidney Stones. Hospital Course Hospital Course: Patient was initially managed as a case of recurrent seizures with right shoulder joint anterior dislocation. Attempt at closed reduction of the dislocated shoulder was not possible due to significant should joint instability. I did discussed case with dr Workman and director of contracts surgeon for Dr Gary who has been taking care of the patient shoulder joint problem. It was agreed upon that her seizure activities need to be under control before surgical intervention for her right shoulder joint dislocation. She was seen in consultation by Dr. Tan, neurologist, with adjustment to her anti seizure medication. I subsequently reviewed her medical record from [facility] where she has been extensively worked up for her seizure disorder. Her work up at was conclusive for PNES (psychogenic Non-Epileptic Seizure). Her work up so far at this facility has been negative. Dr. Tan recommended to transfer her to [facility]. I contacted [facility] for possible transfer and after discussing case with director of contracts neurologist, her transfer was declined. Patient care plan so far is appropriate , better care for near home and remove enabling interaction with recommendation for psychiatry evaluation and Cognitive Behavioral Therapy. Patient earlier threaten to sign out against medical advise earlier during the day and despite all involvement in her care eventually carried out her threat later tonight. She was advised to seek care as necessary. She has not established care with my practice at the time of her admission but due to the fact that she was admitted to my service by the covering physician I continue to provide acute care need for her during this hospitalization. She is discharged from my service and practice. If she represent to the ED at this facility in the future, she can be admitted to the hospitalist program for continue acute care need. Physical Exam Vital Signs: Temp Pulse Resp BP Pulse Ox 100.0 F 105 H 30 H 145/105 H 99 07/22/17 16:00 07/22/17 16:00 07/22/17 16:00 07/22/17 16:00 07/22/17 16:00 Intake & Output 07/21/17 07/22/17 07/23/17 06:59 06:59 06:59 Intake Total 2463 2420 Output Total 3710 3430 1750 Balance -1247 -1010 -1750 Weight 106.4 kg 102.2 kg Results Laboratory Results: 07/22/17 04:50 07/22/17 04:50 07/22/17 07/22/17 04:50 04:50 WBC 8.0 RBC 4.40 Hgb 12.7 Hct 38.5 MCV 88 MCH 28.8 MCHC 32.9 RDW 14.3 H Plt Count 293 Seg Neutrophils % 61.5 Lymphocytes % 25.7 Monocytes % 7.9 Eosinophils % 4.1 Basophils % 0.8 Absolute Neutrophils 4.9 Absolute Lymphocytes 2.0 Absolute Monocytes 0.6 Absolute Eosinophils 0.3 Absolute Basophils 0.1 Sodium 138.9 Potassium 3.8 Chloride 107 Carbon Dioxide 16 L Anion Gap 16 BUN 9 Creatinine 0.69 Est GFR ( Amer) > 60 Est GFR (Non-Af Amer) > 60 Glucose 77 Calcium 9.7 Magnesium 2.0 Total Bilirubin 0.3 AST 14 ALT 34 Alkaline Phosphatase 93 Total Protein 7.3 Albumin 4.2 07/22/17 04:50 Creatine Kinase 125 Impressions: Fluoroscopy 07/20/17 00:00 IMPRESSION: IMAGE(S) OBTAINED DURING PROCEDURE. Lumbar Puncture 07/20/17 00:00 IMPRESSION: Lumbar puncture under fluoroscopy. No immediate complication. Shoulder X-Ray 07/20/17 00:00 IMPRESSION: IMAGE(S) OBTAINED DURING PROCEDURE. Chest X-Ray 07/21/17 14:49 IMPRESSION: CENTRAL LINE ON THE LEFT SIDE HAS PULLED BACK DESCRIBED. NO PNEUMOTHORAX. OTHERWISE NO ACUTE RADIOGRAPHIC FINDING IN THE CHEST. Head MRI 07/22/17 00:00 IMPRESSION: NORMAL MRI OF THE BRAIN WITHOUT INTRAVENOUS GADOLINIUM CONTRAST. EVIDENCE OF ACUTE STROKE: NO. Qualifiers - * PATEINT BEING DISCHARGED WITH ANY OF THE FOLLOWING DIAGNOSIS?: No Plan Discharge Plan: Self discharge home against medical advice.
--- NOTE | 2017-07-23 07:23 | PSYCHOLOGICAL NOTE ---
Psych Note - Psych Note Psych Note: Reason For Consult:psychogenic nonepiletic seizures Consult received for patient at 1833 on 07/22/2017; however, patient left against medical advice at 1910 07/22/2017.
[2017-07-23 16:40] LABS: ALPHA-1-GLOBULIN 1 4.1 % (1.1-6.6); ALPHA-2-GLOBULIN 3.9 % (3.0-12.6); CSF ALBUMIN 59.4 % (56.8-76.4); PRE ALBUMIN 3.6 % (2.2-7.1)
[2017-07-24 08:43] LABS: CSF PE GAMMA GLOBULIN 13.4 % (3.0-13.0); PROT ELEC MSPIKE Not Observed % (Not Observed)
== END 2017-07-22 19:10 | disposition left against medical advice (07) | DRG 101 ==
LOC: ER 16:40 → INTOOBSV 21:19 → EH 21:19 → 4S 23:13 → OBSVTOIN 07-20 08:51 → INOR 07-20 09:31 → ICU 07-20 10:06
PROVIDERS: ADMIT Internal Medicine Geriatric Medicine; ATTEND Internal Medicine Geriatric Medicine
PROC: 0RSJXZZ Reposition Right Shoulder Joint, External Approach (ICD-10-PCS; principal; 2017-07-19)
PROC: 02HV33Z Insertion of Infusion Device into Superior Vena Cava, Percutaneous Approach (ICD-10-PCS; 2017-07-20)
PROC: B548ZZA Ultrasonography of Superior Vena Cava, Guidance (ICD-10-PCS; 2017-07-20)
PROC: 009U3ZX Drainage of Spinal Canal, Percutaneous Approach, Diagnostic (ICD-10-PCS; 2017-07-20)
PROC: 0RSJXZZ Reposition Right Shoulder Joint, External Approach (ICD-10-PCS; 2017-07-20 09:30)
PROC: 02HV33Z Insertion of Infusion Device into Superior Vena Cava, Percutaneous Approach (ICD-10-PCS; 2017-07-21)
PROC: B548ZZA Ultrasonography of Superior Vena Cava, Guidance (ICD-10-PCS; 2017-07-21)
DX: R56.9 Unspecified convulsions (principal); F17.210 Nicotine dependence, cigarettes, uncomplicated; G93.2 Benign intracranial hypertension; I10 Essential (primary) hypertension; M24.411 Recurrent dislocation, right shoulder; J02.0 Streptococcal pharyngitis; Z98.2 Presence of cerebrospinal fluid drainage device
CPT/HCPCS: 01620; 36415; 62270; 70551; 71045; 80053; 80177; 80185; 81001; 82550; 82945; 83735; 83916; 84157; 84166; 84703; 85025; 86403; 87015; 87070; 87077; 87116; 87205; 87206; 87210; 87252; 87880; 89050; 93005; 93010; 95819; 96374; 96375; 99153; 99291; 99152; C1751; C9254; G0378; J0696; J1165; J1885; J1953; J2060; J2250; J2405; J2704; J3010; J3490; J7050; J7120; L3650; S0119

== ENCOUNTER 2017-09-07 09:45 | Emergency (ER) | payer OTHER, MEDICAID ==
[2017-09-07] MEDS ORDERED: NORMAL SALINE 1000 ML 1,000 ML IV ONE (10:09)
[2017-09-07] MEDS ORDERED: HYDROCODONE/ACETAMINOPHEN 5-325 MG TABLET PO ONE (10:10)
--- NOTE | 2017-09-07 10:17 | ER Document Report ---
ED Seizure - General Chief Complaint: Seizure Stated Complaint: POSSIBLE SEIZURE Time Seen by Provider: 09/07/17 10:01 Notes: 32-year-old female with a history of pseudotumor cerebri and chronic seizures presents to the ER after seizure. Patient complains of a mild nosebleed after the seizure. She stated she woke up and had some blood in her left nose. She states she has been compliant with medications. She usually dislocates her right shoulder states that sore but not significantly painful like prior issues with dislocation. The patient denies any fever chills or sore throat. Complains of a dull headache that she usually gets after seizures. Had some mild nausea but denies vomiting. Denies abdominal pain. - Related Data Allergies/Adverse Reactions: rocuronium Allergy (Severe, Verified 07/19/17 16:45) Cardiac arrest clonidine [Clonidine] Allergy (Verified 07/19/17 16:45) droperidol Allergy (Verified 07/19/17 16:45) etomidate [Etomidate] Allergy (Verified 07/19/17 16:45) lisinopril Allergy (Verified 07/19/17 16:45) Facial swelling metoclopramide HCl [From Reglan] Allergy (Verified 07/19/17 16:45) Past Medical History - Social History Smoking Status: Unknown if Ever Smoked Family History: Reviewed & Not Pertinent - Past Medical History Cardiac Medical History: Reports: Hx Hypertension Denies: Hx Coronary Artery Disease, Hx Heart Attack Pulmonary Medical History: Reports: Hx Pneumonia Denies: Hx Asthma, Hx Bronchitis, Hx COPD Neurological Medical History: Reports: Hx Seizures. Denies: Hx Cerebrovascular Accident Renal/ Medical History: Reports: Hx Kidney Stones. Denies: Hx Peritoneal Dialysis Musculoskeltal Medical History: Denies Hx Arthritis Psychiatric Medical History: Denies: Hx Depression Past Surgical History: Reports: Hx Section, Hx Neurologic Surgery - intercranial shunt, Hx Orthopedic Surgery - Patient is status post a right [place] repair in [facility] - Immunizations Hx Diphtheria, Pertussis, Tetanus Vaccination: Yes Review of Systems - Review of Systems EENT: See HPI Cardiovascular: denies: Chest pain, Dyspnea Respiratory: denies: Cough, Hemoptysis, Short of breath Gastrointestinal: Nausea. denies: Diarrhea, Vomiting, Constipation Genitourinary: denies: Dysuria Musculoskeletal: Joint pain. denies: Neck pain Skin: No symptoms reported Neurological/Psychological: Anxiety, Seizure, Lost consciousness. denies: Tingling -: Yes All other systems reviewed and negative Physical Exam - Vital signs Vitals: Resp Pulse Ox 21 H 100 09/07/17 09:59 09/07/17 09:59 - Notes Notes: GENERAL_APPEARANCE: well_nourished, alert, cooperative VITALS: reviewed, see vital signs table. HEAD: no_swelling\tenderness on the head. EYES: PERRL, EOMI, conjunctiva_clear. NOSE: Very slight nosebleed left nare, small area left anterior nasal septum that has stopped bleeding. MOUTH: (-)decreased moisture. THROAT: no_throat_inflammation, no_airway_obstruction. no_lymphadenopathy NECK: supple, no_neck_tenderness, (-)thyromegaly. BACK: no_back_tenderness. CHEST_WALL: no_chest_tenderness. LUNGS: no_wheezing, no_rales, no_rhonchi, (-)accessory muscle use, good air exchange bilateral. HEART: normal_rate, normal_rhythm, normal_S1, normal_S2, (-)S3, (-)S4, no_ murmur, no_rub. ABDOMEN: normal_BS, soft, no_abd_tenderness, (-)guarding, (-)rebound, no_ organomegaly, no_abd_masses. EXTREMITIES: good pulses in all_extremities, mild discomfort right shoulder but full active range of motion, no_edema. SKIN: warm, dry, good_color, no_rash. MENTAL_STATUS: speech_clear, oriented_X_3, normal_affect, responds_ appropriately to questions. NEURO: Neg Motor or Sensory Deficits on exam, CN 2-12 intact, DTR 2+ symmetric x 4, No cerbellar signs Course - Re-evaluation Re-evalutation: 09/07/17 10:16 32-year-old female established history of seizures pseudotumor cerebri complains of headache bloody nose and a seizure. Patient is awake and back to baseline here. She complains of headache which he usually does after after seizure we are getting a CT just to confirm there is no changes with her imaging. She is neurologically intact at this time. They have a difficult time getting IVs because she is a frequent visitor and a lot of her vascular access is used up. Really she is back to baseline her nosebleed has stopped and she seems to be doing well I do not think we need to do a central line for this patient. We will get an x-ray of the shoulder just to be sure she did not dislocate again. 09/07/17 13:17 Patient shoulder was dislocated. Anterior dislocation. Conscious sedation was performed with ketamine. Shoulder was reduced without difficulty. Post reduction x-ray showed an in place shoulder with patient placed in a sling. Patient is recovered and will be discharged home. CT the brain was normal no acute abnormalities with the shunt. Lab work showed a mildly low potassium but that was supplemented otherwise normal patient be advised to be morbid and is in take a multivitamin daily. She is to follow-up with her doctor for her seizures. - Vital Signs Vital signs: Temp Pulse Resp BP Pulse Ox 100 22 H 147/104 H 99 09/07/17 12:30 09/07/17 12:35 09/07/17 12:35 09/07/17 12:35 - Laboratory Result Diagrams: 09/07/17 10:21 09/07/17 10:21 Laboratory results interpreted by me: 09/07/17 09/07/17 10:21 10:21 RDW 15.5 H Sodium 146.9 H Potassium 3.1 L Chloride 111 H Carbon Dioxide 21 L Procedures - Conscious Sedation Conscious sedation Consent obtained: Yes Prior complications: Procedural sedation Normal healthy pt.: P1. - ASA Classification Airway Evaluation: Normal anatomy Mallampati Classification: Class 1 Used during procedure: Suction available, IV access obtained, Pulse ox on pt., youth nutritional monitor on pt. Medications administered: Ketamine Reversal agents: None I personally performed/intraservice time: Sedation - Joint Reduction/Fracture Care Right Shoulder Consent obtained: Yes Conscious sedation: Yes Pre-procedure NV exam: Yes Manipulation comment: Using traction countertraction which sheet shoulder was able to be reduced Post-procedure NV exam: Yes Post-reduction x-ray: Joint reduced Reduction attempts: 1 Complications: No Discharge - Discharge Clinical Impression: Seizure Shoulder dislocation Qualifiers: Encounter type: initial encounter Laterality: right Qualified Code(s): S43.004A - Unspecified dislocation of right shoulder joint, initial encounter Condition: Good Disposition: HOME, SELF-CARE Instructions: Seizure, Known Epileptic ([facility]), Shoulder Dislocation ([facility]) Prescriptions: Ibuprofen [Ibu] 600 mg PO TID PRN #30 tablet PRN Reason: pain
[2017-09-07] MEDS ORDERED: ONDANSETRON HCL INJ/PF 4 MG/2 ML SDV IV ONE (10:30)
[2017-09-07] MEDS ORDERED: LORAZEPAM INJ 2 MG/1 ML VIAL IV ONE (10:30)
[2017-09-07 10:51] LABS: ANION GAP 15 (5-19); BLOOD UREA NITROGEN 12 mg/dL (7-20); CALCIUM 10.2 mg/dL (8.4-10.2); CARBON DIOXIDE 21 mmol/L (22-30); CHLORIDE 111 mmol/L (98-107); GLUCOSE 85 mg/dL (75-110); POTASSIUM 3.1 mmol/L (3.6-5.0); SODIUM 146.9 mmol/L (137-145)
[2017-09-07] MEDS ORDERED: MORPHINE SULFATE 10 MG/ML INJ IV ONE (10:56)
[2017-09-07 11:07] LABS: ABSOLUTE EOSINOPHILS # (AUTO) 0.1 10^3/uL (0.0-0.6); ABSOLUTE LYMPHOCYTES (AUTO) 1.7 10^3/uL (0.5-4.7); ABSOLUTE MONOCYTES (AUTO) 0.4 10^3/uL (0.1-1.4); ABSOLUTE NEUT (AUTO) 3.5 10^3/uL (1.7-8.2); BASOPHILS % (AUTO) 0.8 % (0-2); EOSINOPHILS % (AUTO) 1.6 % (0-6); HEMATOCRIT 41.6 % (36.0-47.0); HEMOGLOBIN 13.8 g/dL (12.0-15.5); LYMPHOCYTES % (AUTO) 29.6 % (13-45); MEAN CORPUSCULAR HEMOGLOBIN 28.8 pg (27.0-33.4); MEAN CORPUSCULAR HGB CONC 33.3 g/dL (32.0-36.0); MEAN CORPUSCULAR VOLUME 86 fl (80-97); MONOCYTES % (AUTO) 7.3 % (3-13); PLATELET COUNT 243 10^3/uL (150-450); RED BLOOD COUNT 4.81 10^6/uL (3.72-5.28); RED CELL DISTRIBUTION WIDTH 15.5 % (11.5-14.0); SEGMENTED NEUTROPHILS % (AUTO) 60.7 % (42-78); TOTAL CELLS COUNTED % (AUTO) 100 %; WHITE BLOOD COUNT 5.8 10^3/uL (4.0-10.5)
--- NOTE | 2017-09-07 11:10 | RADIOLOGY REPORT (SQ) ---
EXAM DESCRIPTION: SHOULDER RIGHT 2 OR MORE VIEWS COMPLETED DATE/TIME: 09/07/2017 10:56 am REASON FOR STUDY: Pain after seizure COMPARISON: 07/20/2017 NUMBER OF VIEWS: Two views. TECHNIQUE: Frontal and lateral images acquired of the right shoulder. LIMITATIONS: None. FINDINGS: MINERALIZATION: Normal. BONES: Cannot exclude a 15 mm bone fragment just above the greater tuberosity. JOINTS: There is an anterior dislocation. VISUALIZED LUNGS AND RIBS: No pneumothorax. No rib fracture. SOFT TISSUES: No radiopaque foreign body. OTHER: No other significant finding. IMPRESSION: Anterior dislocation. Cannot exclude a fracture involving the humeral head (uncertain a ge). TECHNICAL DOCUMENTATION: JOB ID: [id number] [employer]- All Rights Reserved Reading location - IP/workstation name: [email or web address]
--- NOTE | 2017-09-07 11:29 | RADIOLOGY REPORT (SQ) ---
EXAM DESCRIPTION: CT HEAD WITHOUT COMPLETED DATE/TIME: 09/07/2017 11:16 am REASON FOR STUDY: headache COMPARISON: MRI of 07/22/2017 CT 02/18/2017 transverse sinus stent TECHNIQUE: Axial images acquired through the brain without intravenous contrast. Images reviewed wi th bone, brain and subdural windows. Images stored on PACS. All CT scanners at this facility use dose modulation, iterative reconstruction, and/or weight based d osing when appropriate to reduce radiation dose to as low as reasonably achievable (ALARA). [facility]: Dose Right [facility]: CareDose [facility]: Dose Right [facility]: Teradose 4D [facility]: [employer] RADIATION DOSE: CT Rad equipment meets quality standard of care and radiation dose reduction techniq ues were employed. CTDIvol: 53.2 mGy. DLP: 991 mGy-cm. mGy. LIMITATIONS: None. FINDINGS: VENTRICLES: Normal size and contour. CEREBRUM: No masses. No hemorrhage. No midline shift. No evidence for acute infarction. Normal gra y/white matter differentiation. No areas of low density in the white matter. CEREBELLUM: No masses. No hemorrhage. No alteration of density. No evidence for acute infarction. EXTRAAXIAL SPACES: No fluid collections. No masses. ORBITS AND GLOBE: No intra- or extraconal masses. Normal contour of globe without masses. CALVARIUM: No fracture. PARANASAL SINUSES: No fluid or mucosal thickening. SOFT TISSUES: No mass or hematoma. OTHER: There is a stent in the right transverse sinus. IMPRESSION: Right transverse sinus stent with no acute intracranial imaging findings. EVIDENCE OF ACUTE STROKE: NO. COMMENT: Quality ID # [id number]: Final reports with documentation of one or more dose reduction techniques (e.g., Automated exposure control, adjustment of the mA and/or kV according to patient size, use of iterative reconstruction technique) TECHNICAL DOCUMENTATION: JOB ID: [id number] [employer]- All Rights Reserved Reading location - IP/workstation name: [email or web address]
[2017-09-07] MEDS ORDERED: KETAMINE HCL INJ 500 MG/10 ML VIAL ONE (11:49)
[2017-09-07] MEDS ORDERED: KETAMINE HCL INJ 500 MG/10 ML VIAL IV ONE (12:05)
--- NOTE | 2017-09-07 12:41 | RADIOLOGY REPORT (SQ) ---
EXAM DESCRIPTION: SHOULDER RIGHT 1 VIEW COMPLETED DATE/TIME: 09/07/2017 12:26 pm REASON FOR STUDY: POST REDUCTION RT SHOULDER COMPARISON: Left shoulder films two views earlier today NUMBER OF VIEWS: One view. TECHNIQUE: AP portable image acquired of the right shoulder. LIMITATIONS: None. FINDINGS: Post closed reduction. Grossly normal alignment at the glenohumeral joint on the AP kilo ble films submitted. Old bony glenoid repair with screws along the anterior aspect of the bony glenoid. AC joint, clavicle, scapula, right upper ribs, right humeral head otherwise unremarkable. No acute f racture identified IMPRESSION: Post closed reduction right anterior shoulder dislocation, with normal alignment on AP v iew right shoulder. No gross acute fracture TECHNICAL DOCUMENTATION: JOB ID: [id number] [employer]- All Rights Reserved Reading location - IP/workstation name: [email or web address]
[2017-09-07] MEDS ORDERED: POTASSIUM CHLORIDE 10 MEQ TABLET.SA PO ONE (13:14)
[2017-09-07] MEDS ORDERED: DIPHENHYDRAMINE HCL 50 MG/ML VIAL IV ONE (13:23)
[2017-09-07] MEDS ORDERED: KETOROLAC TROMETHAMINE INJ/PF 30 MG/1 ML SDV IV ONE (13:23)
[2017-09-07] MEDS ORDERED: HYDROMORPHONE HCL INJ/PF 2 MG/ML AMPULE ONE (14:13)
[2017-09-07] MEDS ORDERED: HYDROMORPHONE HCL INJ/PF 2 MG/ML AMPULE IV ONE ×2 (14:14→15:23)
--- NOTE | 2017-09-07 15:26 | ER Document Report ---
Doctor's Note Notes: 09/07/17 15:24 The patient's older re-subluxed. Patient is a frequent dislocator and states she can pop in and out at home sometimes. I did do conscious sedation earlier. The patient literally has 100 x-rays for her shoulder. He has had surgeries her shoulder is very lax. It is subluxed and we are able to move it in and out. I spoke with her about this. I do not think we need to re-conscious sedate her to put it back in 4 she can do this when she is relaxed she did ask for something for pain and muscle relaxers for home. She is comfortable going home like this patient has orthopedic follow-up due to this. Again the patient is a frequent dislocator and at times can dislocate at will. Especially after seizure. Patient will be discharged home if she cannot get her shoulder back in she will return for us to reevaluate her otherwise if this is partially subluxed at this time
--- NOTE | 2017-09-07 16:11 | RADIOLOGY REPORT (SQ) ---
EXAM DESCRIPTION: SHOULDER RIGHT 1 VIEW COMPLETED DATE/TIME: 09/07/2017 2:42 pm REASON FOR STUDY: shoulder pain (dislocated?) COMPARISON: AP right shoulder 09/07/2017 1215 hours Right shoulder three views 09/07/2017 1049 hours Multiple previous right shoulder films NUMBER OF VIEWS: AP view TECHNIQUE: AP portable view right shoulder LIMITATIONS: None. FINDINGS: Patient has chronic right shoulder instability. On the single AP view, the humeral head i s subluxed anteriorly, with widening of the subacromial space. This finding was discussed with Dr. Clara marino. No acute fracture. Old surgical screws along the anterior right bony glenoid. IMPRESSION: Chronic right shoulder instability with right humeral head subluxation on the current po rtable film TECHNICAL DOCUMENTATION: JOB ID: [id number]- All Rights Reserved Reading location - IP/workstation name: [email or web address]
[2017-09-07 16:30] VITALS: BP 155/99
== END 2017-09-07 16:31 | disposition home or self-care (01) ==
LOC: ER 09:45
DX: M24.411 Recurrent dislocation, right shoulder (principal); G40.909 Epilepsy, unspecified, not intractable, without status epilepticus; R04.0 Epistaxis; R11.0 Nausea; I10 Essential (primary) hypertension; Z87.442 Personal history of urinary calculi
CPT/HCPCS: 99285; 96361; 99153; 99152; 96374; 96375; 36415; 83735; 85025; 80048; 73020; 73030; 70450; J1200; J3490; J1885; J2270; J1170; J2060; J2405; J7030

== ENCOUNTER 2017-09-09 14:28 | Emergency (ER) | payer OTHER, MEDICAID ==
--- NOTE | 2017-09-09 14:43 | ER Document Report ---
ED General - General Chief Complaint: Probable Seizure Stated Complaint: POSSIBLE SEIZURE Time Seen by Provider: 09/09/17 14:36 Notes: The patient is a 32-year-old female, past medical history PNES, hypertension, ICH, recurrent right anterior shoulder dislocation, presents by EMS after two possible seizure activity were witnessed. She is also having bleeding from her left ear. Looking through prior records, she has seen [facility] and was diagnosed with PNES. She has surgery with a neurosurgeon tomorrow in [facility] for adjustment of her stent in her brain. Patient is now having a headache , which is common for her after her "seizures". She is older patient also has frequent right shoulder dislocation and she can easily dislocate and relocate her shoulder. She denies blurry vision, focal weakness, numbness, tingling, open wounds, neck stiffness, fevers, chest pain or shortness of breath. TRAVEL OUTSIDE OF THE [place] IN LAST 30 DAYS: No - Related Data Allergies/Adverse Reactions: rocuronium Allergy (Severe, Verified 09/09/17 14:52) Cardiac arrest clonidine [Clonidine] Allergy (Verified 09/09/17 14:52) droperidol Allergy (Verified 09/09/17 14:52) etomidate [Etomidate] Allergy (Verified 09/09/17 14:52) lisinopril Allergy (Verified 09/09/17 14:52) Facial swelling metoclopramide HCl [From Reglan] Allergy (Verified 09/09/17 14:52) Past Medical History - General Information source: Patient - Social History Smoking Status: Unknown if Ever Smoked Family History: Reviewed & Not Pertinent - Past Medical History Cardiac Medical History: Reports: Hx Hypertension Denies: Hx Coronary Artery Disease, Hx Heart Attack Pulmonary Medical History: Reports: Hx Pneumonia Denies: Hx Asthma, Hx Bronchitis, Hx COPD Neurological Medical History: Reports: Hx Seizures. Denies: Hx Cerebrovascular Accident Renal/ Medical History: Reports: Hx Kidney Stones. Denies: Hx Peritoneal Dialysis Musculoskeltal Medical History: Denies Hx Arthritis Psychiatric Medical History: Denies: Hx Depression Past Surgical History: Reports: Hx Section, Hx Neurologic Surgery - intercranial shunt, Hx Orthopedic Surgery - Patient is status post a right Bankart repair in [facility] - Immunizations Hx Diphtheria, Pertussis, Tetanus Vaccination: Yes Review of Systems - Review of Systems Notes: REVIEW OF SYSTEMS: CONSTITUTIONAL: -fevers, -chills EENT: -eye pain, -difficulty swallowing, -nasal congestion, +bleeding from left ear CARDIOVASCULAR: -chest pain, -syncope. RESPIRATORY: -cough, -SOB GASTROINTESTINAL: -abdominal pain, -nausea, -vomiting, -diarrhea GENITOURINARY: -dysuria, -hematuria MUSCULOSKELETAL: +right shoulder pain, -back pain, -neck pain SKIN: -rash or skin lesions. HEMATOLOGIC: -easy bruising or bleeding. LYMPHATIC: -swollen, enlarged glands. NEUROLOGICAL: +seizure-like activity, -altered mental status or loss of consciousness, +headache PSYCHIATRIC: -anxiety, -depression. ALL OTHER SYSTEMS REVIEWED AND NEGATIVE. Physical Exam - Vital signs Vitals: Resp Pulse Ox 31 H 100 09/09/17 14:30 09/09/17 14:30 - Notes Notes: PHYSICAL EXAMINATION: GENERAL: Well-appearing, well-nourished and in no acute distress. HEAD: Atraumatic, normocephalic. EYES: Pupils equal round and reactive to light, extraocular movements intact, sclera anicteric, conjunctiva are normal. ENT: dried blood in nares, blood in left ear canal, normal TM, nares patent, oropharynx clear without exudates. Moist mucous membranes. NECK: Normal range of motion, supple without lymphadenopathy LUNGS: Breath sounds clear to auscultation bilaterally and equal. No wheezes rales or rhonchi. HEART: Regular rate and rhythm without murmurs ABDOMEN: Soft, nontender, normoactive bowel sounds. No guarding, no rebound. No masses appreciated. EXTREMITIES: Tenderness over right shoulder, right shoulder dislocates and relocates on my exam. no pitting or edema. No cyanosis. NEUROLOGICAL: Cranial nerves grossly intact. Normal speech. Normal sensory and motor exams. PSYCH: Normal mood, normal affect. SKIN: Warm, Dry, normal turgor, no rashes or lesions noted. Course - Re-evaluation Re-evalutation: Patient seen multiple times in this emergency room for similar symptoms. Looking through old records, she has seen the [facility] neurolog[facility] team and was diagnosed with PNES. She has also having a recurrent right shoulder dislocation , which will easily relocate. This was relocated by the patient and she was placed in a sling. CT Head obtained due to the hypertension and bleeding from left ear. Head CT was negative. Blood work is unremarkable and she has an appointment with a neurosurgeon in [place] tomorrow for adjustment of her stent. Instructed her that she must make this appointment. - Vital Signs Vital signs: Temp Pulse Resp BP Pulse Ox 98.1 F 18 105/87 H 99 09/09/17 14:31 09/09/17 14:44 09/09/17 14:44 09/09/17 15:07 - Laboratory Result Diagrams: 09/09/17 14:35 09/09/17 14:35 Laboratory results interpreted by me: 09/09/17 09/09/17 14:35 14:35 RDW 15.5 H Carbon Dioxide 19 L - Diagnostic Test Radiology reviewed: Image reviewed, Reports reviewed Radiology results interpreted by me: Head CT: NAD Discharge - Discharge Clinical Impression: Seizure-like activity, Recurrent anterior dislocation of right shoulder Headache Qualifiers: Headache type: unspecified Headache chronicity pattern: chronic headache Intractability: not intractable Qualified Code(s): R51 - Headache Condition: Stable Disposition: HOME, SELF-CARE Additional Instructions: Your head CT scan and blood work is unremarkable. You must follow-up with your neurosurgeon tomorrow in [place]. Use the sling and follow with your orthopedic surgeon. Shoulder Dislocation You've had a shoulder dislocation. Even after the shoulder is put back in place, careful care is needed to prevent further problems. As the shoulder dislocated, injury to the joint itself occurred. This must be allowed to heal. The usual treatment is a shoulder immobilizing sling. If this is your first dislocation, it must be left in place until the doctor allows you to remove it. This is important. Ice pack the shoulder frequently. One of the most important aspects of care for a shoulder dislocation is mobility exercises and strengthening exercises. You'll start these when it's safe to start moving the shoulder joint. Be sure to keep your follow-up appointments. If you develop numbness in the arm or hand, weakness of the hand muscles, arm swelling, or arm discoloration, call the doctor or return immediately. Seizure, Known Epileptic You have had a seizure. Seizures may "break through" in an epileptic due to stress of infection or injury, a change in blood chemistry, or drug and alcohol use. Another common cause is failure to take medication as prescribed. Your doctor has evaluated your situation for the likely cause of this seizure. It is important that you follow his advice concerning any medication changes and follow-up care. Further testing of anti-seizure medication levels in your blood may be necessary. If you have a food service driver's license, it's important that you DO NOT DRIVE until given permission by your physician. This seizure must be reported to the food service driver 's license bureau. Call the doctor or return if seizures recur, or if new or unusual symptoms arise -- such as severe headache, confusion, excessive sleepiness, local weakness or numbness, neck stiffness, or fever. Referrals: ERWIN PARIKH MD [EMERITUS] - Follow up as needed DURAN BAKER MD [ACTIVE STAFF] - Follow up as needed
[2017-09-09 14:50] VITALS: BP 105/87
[2017-09-09 15:00] LABS: ABSOLUTE BASOPHILS # (AUTO) 0.1 10^3/uL (0.0-0.2); ABSOLUTE EOSINOPHILS # (AUTO) 0.2 10^3/uL (0.0-0.6); ABSOLUTE LYMPHOCYTES (AUTO) 2.7 10^3/uL (0.5-4.7); ABSOLUTE MONOCYTES (AUTO) 0.4 10^3/uL (0.1-1.4); ABSOLUTE NEUT (AUTO) 3.4 10^3/uL (1.7-8.2); BASOPHILS % (AUTO) 0.8 % (0-2); EOSINOPHILS % (AUTO) 2.6 % (0-6); HEMATOCRIT 38.8 % (36.0-47.0); HEMOGLOBIN 12.9 g/dL (12.0-15.5); LYMPHOCYTES % (AUTO) 40.1 % (13-45); MEAN CORPUSCULAR HEMOGLOBIN 29.1 pg (27.0-33.4); MEAN CORPUSCULAR HGB CONC 33.2 g/dL (32.0-36.0); MEAN CORPUSCULAR VOLUME 88 fl (80-97); MONOCYTES % (AUTO) 5.9 % (3-13); PLATELET COUNT 267 10^3/uL (150-450); RED BLOOD COUNT 4.42 10^6/uL (3.72-5.28); RED CELL DISTRIBUTION WIDTH 15.5 % (11.5-14.0); SEGMENTED NEUTROPHILS % (AUTO) 50.6 % (42-78); TOTAL CELLS COUNTED % (AUTO) 100 %; WHITE BLOOD COUNT 6.7 10^3/uL (4.0-10.5)
[2017-09-09] MEDS ORDERED: NAPROXEN 250 MG TABLET PO ONE (15:00)
[2017-09-09] MEDS ORDERED: ACETAMINOPHEN 325 MG TABLET PO ONE (15:00)
[2017-09-09 15:13] LABS: ALANINE AMINOTRANSFERASE 25 U/L (9-52); ALBUMIN 4.3 g/dL (3.5-5.0); ALKALINE PHOSPHATASE 80 U/L (38-126); ANION GAP 17 (5-19); ASPARTATE AMINO TRANSFERASE 21 U/L (14-36); BILIRUBIN,DIRECT 0.2 mg/dL (0.0-0.4); BILIRUBIN,TOTAL 0.2 mg/dL (0.2-1.3); BLOOD UREA NITROGEN 15 mg/dL (7-20); CALCIUM 9.6 mg/dL (8.4-10.2); CARBON DIOXIDE 19 mmol/L (22-30); CHLORIDE 107 mmol/L (98-107); GLUCOSE 84 mg/dL (75-110); POTASSIUM 3.6 mmol/L (3.6-5.0); SODIUM 143.3 mmol/L (137-145); TOTAL PROTEIN 7.6 g/dL (6.3-8.2)
--- NOTE | 2017-09-09 15:29 | RADIOLOGY REPORT (SQ) ---
EXAM DESCRIPTION: CT HEAD WITHOUT COMPLETED DATE/TIME: 09/09/2017 3:16 pm REASON FOR STUDY: headache, seizure, hypertensive COMPARISON: [address] brain exams since 09/25/2007, most recently 09/07/2017, 02/18/2017 MRI brain 07/22/2017 TECHNIQUE: Axial images acquired through the brain without intravenous contrast. Images reviewed wi th bone, brain and subdural windows. Additional sagittal and coronal reconstructions were generated. Images stored on PACS. All CT scanners at this facility use dose modulation, iterative reconstruction, and/or weight based d osing when appropriate to reduce radiation dose to as low as reasonably achievable (ALARA). [facility]: Dose Right [facility]: CareDose [facility]: Dose Right [facility]: Teradose 4D [facility]: [employer] RADIATION DOSE: CT Rad equipment meets quality standard of care and radiation dose reduction techniq ues were employed. CTDIvol: 53.2 mGy. DLP: 1017 mGy-cm. mGy. LIMITATIONS: None. FINDINGS: VENTRICLES: Normal size and contour. CEREBRUM: No masses. No hemorrhage. No midline shift. No evidence for acute infarction. Normal gra y/white matter differentiation. No areas of low density in the white matter. Posterior fossa: No masses. No hemorrhage. Right-sided transverse sinus stent identified on images 11 and 12, unchanged from 09/07/2017. No evidence for acute infarction. EXTRAAXIAL SPACES: No fluid collections. No masses. ORBITS AND GLOBE: No intra- or extraconal masses. Normal contour of globe without masses. CALVARIUM: No fracture. PARANASAL SINUSES: No fluid or mucosal thickening. SOFT TISSUES: No mass or hematoma. OTHER: Findings discussed with Dr. Waite IMPRESSION: No acute findings EVIDENCE OF ACUTE STROKE: NO. COMMENT: Quality ID # [id number]: Final reports with documentation of one or more dose reduction techniques (e.g., Automated exposure control, adjustment of the mA and/or kV according to patient size, use of iterative reconstruction technique) TECHNICAL DOCUMENTATION: JOB ID: [id number] [employer]- All Rights Reserved Reading location - IP/workstation name: [email or web address]
== END 2017-09-09 16:07 | disposition home or self-care (01) ==
LOC: ER 14:28
DX: R56.9 Unspecified convulsions (principal); M24.411 Recurrent dislocation, right shoulder; R51 Headache; H92.12 Otorrhea, left ear; I10 Essential (primary) hypertension
CPT/HCPCS: 36415; 70450; 80053; 82962; 84703; 85025; 99284; L3650

== ENCOUNTER 2019-10-09 22:33 | Observation (INO) | payer MEDICAID, OTHER ==
--- NOTE | 2019-10-09 23:24 | RADIOLOGY REPORT (SQ) ---
EXAM DESCRIPTION: XR SHOULDER 2 OR MORE VIEWS COMPLETED DATE/TME: 10/09/2019 00:00 CLINICAL HISTORY: 34 years, Female, right shoulder injury COMPARISON: None. FINDINGS: 2 views of the right shoulder. Anterior dislocation of the humeral head relative to the glenoid. No acute fracture identified. No acute abnormalities of visualized right hemithorax. IMPRESSION: 1. Anterior right shoulder dislocation. copyright 2010 [employer]- All Rights Reserved
[2019-10-10] MEDS ORDERED: MIDAZOLAM 2 MG/2 ML INJ IV ONE (00:58)
[2019-10-10] MEDS ORDERED: HYDROMORPHONE HCL INJ/PF 2 MG/ML AMPULE IV ONE ×3 (00:58→06:09)
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
[2019-10-10] MEDS ORDERED: PROPOFOL INJ 200 MG/20 ML VIAL IV ONE ×7 (01:59→11:48)
[2019-10-10] MEDS ORDERED: MIDAZOLAM 2 MG/2 ML INJ ONE ×3 (01:59→11:48)
--- NOTE | 2019-10-10 03:20 | RADIOLOGY REPORT (SQ) ---
EXAM DESCRIPTION: XR SHOULDER 2 OR MORE VIEWS COMPLETED DATE/TME: 10/10/2019 00:00 CLINICAL HISTORY: 34 years, Female, post right shoulder reduction COMPARISON: 10/09/2019 FINDINGS: Single view of the right shoulder post reduction. Successful reduction cannot be confirmed on this single radiograph due to positioning however, the humerus does appear to be in closer to normal anatomic alignment. IMPRESSION: Single frontal image does not confirm successful reduction however the humerus does appear to be in closer to normal anatomic alignment. Subscapular Y view may be beneficial. copyright 2010 [employer]- All Rights Reserved
--- NOTE | 2019-10-10 04:25 | RADIOLOGY REPORT (SQ) ---
RIGHT SHOULDER RADIOGRAPHS: 10/10/2019 3:22 AM CDT TECHNIQUE: Y views of the right shoulder were obtained. COMPARISON: Shoulder radiographs from 10/10/2019 HISTORY: 34-year old patient with right shoulder pain . FINDINGS: There is a persistent anterior right humeral head from the glenohumeral joint. No obvious fracture is seen. IMPRESSION: There is a persistent anterior dislocation of the right humeral head from the glenohumeral joint.
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
[2019-10-10] MEDS ORDERED: RINGERS SOLUTION,LACTATED 1,000 ML IV PRN (08:02)
[2019-10-10] MEDS ORDERED: MORPHINE SULFATE 10 MG/ML INJ ONE (11:26)
--- NOTE | 2019-10-10 11:49 | Operative Report ---
Operative Report DATE OF SURGERY: 10/10/19 PREOPERATIVE DIAGNOSIS: Recurrent right shoulder instability OPERATION: Post reduction right glenohumeral joint SURGEON: DURAN BAKER ANESTHESIA: Moderate Sedation PROCEDURE: With the patient on an OR gurney the right upper extremities manipulated under sedation to affect a reduction. The reduction is confirmed radiographically. Shoulder immobilizer is placed in the patient's return to the PACU in satisfactory condition.
[2019-10-10] MEDS ORDERED: DEXAMETHASONE SOD PHOSPHATE INJ 4 MG/1 ML VIAL ONE (12:01)
[2019-10-10] MEDS ORDERED: ONDANSETRON HCL INJ/PF 4 MG/2 ML SDV ONE (12:01)
--- NOTE | 2019-10-10 12:44 | RADIOLOGY REPORT (SQ) ---
EXAM DESCRIPTION: SHOULDER RIGHT 1 VIEW IMAGES COMPLETED DATE/TIME: 10/10/2019 11:57 am REASON FOR STUDY: POST OP RIGHT SHOULDER IN OR RM1 COMPARISON: None. NUMBER OF VIEWS: One view. TECHNIQUE: An anterior image acquired of the right shoulder. LIMITATIONS: None. FINDINGS: Postoperative image shows small metal hardware at appears to be along the anterior margin of the glenoid. IMPRESSION: Postoperative image. Refer to operative note for further information. TECHNICAL DOCUMENTATION: JOB ID: [id number] [employer]- All Rights Reserved Reading location - IP/workstation name: [email or web address]
[2019-10-10 13:48] VITALS: BP 148/84
== END 2019-10-10 14:24 | disposition home or self-care (01) ==
LOC: ER 22:33 → EH 10-10 04:47 → 3W 10-10 09:58
PROVIDERS: ADMIT Orthopaedic Surgery; ATTEND Orthopaedic Surgery
DX: M25.311 Other instability, right shoulder (principal); S43.004A Unspecified dislocation of right shoulder joint, initial encounter; Y08.89XA Assault by other specified means, initial encounter; Y92.512 Supermarket, store or market as the place of occurrence of the external cause; Y99.0 Civilian activity done for income or pay; F17.200 Nicotine dependence, unspecified, uncomplicated; E66.9 Obesity, unspecified; Z98.890 Other specified postprocedural states; Z03.818 Encounter for observation for suspected exposure to other biological agents ruled out
CPT/HCPCS: 23650; 23655; 96376; 99284; 96361; 99152; 96374; 87635; 73020; 73030 ×2; 99140; 01620; G0378 ×2; J2250; J1100; J2270; J1170; J2405; J7120; J2704; C9803